=== PATIENT | female | born 1940 | race Caucasian/White ===

== ENCOUNTER 2020-09-20 14:21 | Outpatient (REF) | payer MEDICARE, OTHER, SELFPAY ==
[2020-09-20 15:35] LABS: Hematocrit 29.8 % (37-47); Hemoglobin 9.6 g/dl (12.0-16.0); Mean Corpuscular HGB Conc 32.2 g/dl (31.0-35.0); Mean Corpuscular Hemoglobin 30.5 pg (27.0-33.0); Mean Corpuscular Volume 94.6 fL (80-98); Mean Platelet Volume 10.4 fL (9.4-12.3); NRBC Pct Auto 0.8 /100WBC (0.0-0.2); Platelet Count 263 X10*3/uL (160-400); Red Blood Count 3.15 X10*6/uL (4.20-5.50); Red Cell Distribution Width 12.4 % (11.0-16.0)
[2020-09-20 15:41] LABS: Glucose Urine UA NEG (NEG); Leukocyte Esterase Urine NEG (NEG); Nitrite Urine NEG (NEG); Urine Blood TRACE (NEG); Urine Ketones NEG (NEG); Urine Protein NEG (NEG-TRACE)
[2020-09-20 15:48] LABS: Appearance Urine CLEAR; Color Urine YELLOW
[2020-09-20 15:58] LABS: Albumin Level 4.3 g/dL (3.5-5.0); Anion Gap 16 (12-20); Blood Urea Nitrogen 30 mg/dL (9-16); Calcium 9.5 mg/dL (8.4-10.2); Carbon Dioxide 25 mmol/L (22-29); Chloride 99 mmol/L (96-108); Estimated Glomerular Filt Rate 43; Iron 77 mcg/dL (30-160); Magnesium 1.6 mg/dL (1.6-2.6); Percent Iron Saturation 20 % (15-50); Phosphorus 3.8 mg/dL (2.7-4.5); Potassium 4.6 mmol/L (3.3-5.1); Sodium 135 mmol/L (135-145); Total Iron Binding Capacity 390 mcg/dL (228-428); Unsaturated Iron Binding 313 ug/dL
[2020-09-20 16:07] LABS: Total Protein Urine Random < 7 mg/dL (<12)
[2020-09-20 16:20] LABS: Ferritin 366 ng/mL (10-250); Vitamin D 25-OH Total 28.9 ng/mL (>30)
[2020-09-20 17:03] LABS: RBC Urine 0-2 /HPF (0); WBC Urine 0 /HPF (0-4)
[2020-09-21 13:13] LABS: Calcium (PTHI) 9.7 mg/dL (8.6-10.4); PTHI 50 pg/mL (14-64)
== END 2020-09-20 14:22 | disposition home or self-care (01) ==
LOC: HO.LAB 14:21
PROVIDERS: PCP Internal Medicine; Visit Provider Internal Medicine Nephrology
DX: I12.9 Hypertensive chronic kidney disease with stage 1 through stage 4 chronic kidney disease, or unspecified chronic kidney disease (principal); N18.31 Chronic kidney disease, stage 3a; Q61.3 Polycystic kidney, unspecified; E21.0 Primary hyperparathyroidism; D63.1 Anemia in chronic kidney disease
CPT/HCPCS: 36415; 80051; 81001; 82040; 82306; 82310; 82565; 82728; 83540; 83735; 83970; 84100; 84156; 84520; 85027; 87086

== ENCOUNTER 2021-03-21 16:03 | Outpatient (REF) | payer MEDICARE, OTHER, SELFPAY ==
[2021-03-21 17:06] LABS: Appearance Urine CLEAR; Color Urine YELLOW; Glucose Urine UA NEG (NEG); Leukocyte Esterase Urine NEG (NEG); Nitrite Urine NEG (NEG); PH 6.5 (5.0-8.0); Urine Blood TRACE (NEG); Urine Ketones NEG (NEG); Urine Protein NEG (NEG-TRACE)
[2021-03-21 17:19] LABS: RBC Urine 0-2 /HPF (0); Squamous Epithelial Cell Urine TRACE /LPF; WBC Urine 0-2 /HPF (0-4)
[2021-03-21 17:28] LABS: Hematocrit 25.8 % (37-47); Hemoglobin 8.5 g/dl (12.0-16.0); Mean Corpuscular HGB Conc 32.9 g/dl (31.0-35.0); Mean Corpuscular Volume 94.2 fL (80-98); Mean Platelet Volume 9.6 fL (9.4-12.3); Platelet Count 337 X10*3/uL (160-400); Red Blood Count 2.74 X10*6/uL (4.20-5.50); Red Cell Distribution Width 13.2 % (11.0-16.0); White Blood Count 4.7 X10*3/uL (4.8-10.8)
[2021-03-21 17:37] LABS: Creatinine Urine 29.18 mg/dL; Protein/Creatinine Ratio, Ur 0.41 (<0.2); Total Protein Urine Random 12 mg/dL (<12)
[2021-03-21 17:38] LABS: Anion Gap 11 (12-20); Blood Urea Nitrogen 24 mg/dL (9-16); Calcium 9.3 mg/dL (8.4-10.2); Carbon Dioxide 26 mmol/L (22-29); Chloride 105 mmol/L (96-108); Estimated Glomerular Filt Rate 43; Magnesium 1.6 mg/dL (1.6-2.6); Phosphorus 3.5 mg/dL (2.7-4.5); Potassium 4.3 mmol/L (3.3-5.1); Sodium 138 mmol/L (135-145)
[2021-03-21 17:59] LABS: Vitamin D 25-OH Total 28.3 ng/mL (>30)
[2021-03-22 18:26] LABS: Calcium (PTHI) 9.4 mg/dL (8.6-10.4); PTHI 77 pg/mL (14-64)
== END 2021-03-21 16:04 | disposition home or self-care (01) ==
LOC: HO.LAB 16:03
PROVIDERS: Visit Provider Internal Medicine Nephrology
DX: Q61.3 Polycystic kidney, unspecified (principal); I12.9 Hypertensive chronic kidney disease with stage 1 through stage 4 chronic kidney disease, or unspecified chronic kidney disease; N18.32 Chronic kidney disease, stage 3b; E21.0 Primary hyperparathyroidism
CPT/HCPCS: 36415; 80051; 81001; 81003; 82040; 82043; 82306; 82310; 82565; 83735; 83970; 84100; 84156; 84520; 85027; 87086

== ENCOUNTER 2021-03-30 12:14 | Emergency (ER) | payer MEDICARE, OTHER, SELFPAY ==
[2021-03-30 12:27] VITALS: BP 102/58; PULSE 70; RESP 16; TEMP 36.7; O2SAT 99; BMI 29.2
--- NOTE | 2021-03-30 12:46 | ED_ITS ---
HPI - General Adult General Chief complaint: General Medical Stated complaint: AMS Time Seen by Provider: 03/30/21 12:35 Source: patient and RN notes reviewed Limitations: other (Dementia) History of Present Illness HPI narrative: This is a 80-year-old female who apparently has had a worsened mental status/progression of dementia. The patient allegedly called an ambulance looking for her grandmother. The the patient states that her son called an ambulance on her and that she is very angry about this. She said she feels perfectly fine. She denies any headache, chest pain, shortness of breath, abdominal pain, nausea vomiting, extremity pain. She does live at home with her . She states that after this her son is going to need to look for any place to live The patient's son later arrived and filled in some history. Patient apparently called the ambulance saying that her son was missing. The son says that the patient has become increasingly coronary and that her moved out about 3 months ago because he could not tolerate her behavior. Patient is increasingly forgetful. She is also very hard of hearing and, according to her son, stubborn. The patient states she does have history of anemia, and the patient's son said that the primary care physician he believes have referred her to a kidney specialist. Related Data Allergies Allergy/AdvReac Type Severity Reaction Status Date / Time No Known Allergies Allergy Unverified 03/18/20 15:04 [No Known Allergies*] Review of Systems Review of Systems: Yes all other systems are reviewed and are negative Constitutional: Constitutional: Denies fever(s) Eyes: Eyes: Reports no additional eye complaints ENT: Reports system reviewed and no additional complaints, except as do cumented Cardiovascular: Cardiovascular: Reports no additional cardiovascular complaints Respiratory: Respiratory: Reports no additional respiratory complaints Gastrointestinal: Gastrointestinal: Reports no additional gastrointestinal com plaints Genitourinary: Genitourinary: Reports no additional female genitourinary complaints Musculoskeletal: Musculoskeletal: Reports no additional musculoskeletal complaints Integumentary/Breasts: Skin/Breast: Reports system reviewed and no additional complaints, except as docu Neurologic: Reports system reviewed and no additional complaints, except as documented and Denies Sensory deficit (Neuro) Psychiatric: Psychiatric: Reports no additional psychiatric complaints PMFSH Social History Social History Alcohol intake: never Patient Tobacco Use Status: Never used Tobacco Use of substances other than those prescribed or required for medical reasons: No Advance Directives: No Advance Directives Information Provided: No Physical Exam Vital Signs: Vital Signs: Last Vital Signs Temp 98.0 F 03/30/21 12:27 Pulse 70 03/30/21 12:27 Resp 16 03/30/21 12:27 BP 102/58 L 03/30/21 12:27 Pulse Ox 99 03/30/21 12:27 Body Mass Index 29.2 Const: Other: Patient not ill appearing, somewhat hard of hearing, but communicates appropriately. Patient is oriented to the month, the year, is 1 day off in terms of the day of the week.. Speech clear. Patient seems somewhat angry that she was brought here, is grateful for warm blanket General: coopera tive, no acute distress and alert Orientation/consciousness: oriented to person, oriented to place, oriented to time and patient oriented x3 (States that is Sunday ) HENMT: Head: Yes normal to inspection Eyes: General: appearance normal, both eyes and all related structures Eyelids: Yes eyelids normal Conjunctivae: conjunctivae normal Pupils: Equal, round and reactive pupils present Neck: Neck: Yes normal visual inspection and Yes supple Chest: Chest palpation & inspection: normal inspection of the chest Resp: Effort & Inspection: normal respiratory effort Auscultation: clear to auscultation bilaterally Cardio: Rate: regular rate Rhythm: regular rhythm Heart sounds: S1 normal heart sound present, S2 normal heart sound present, no gallops, no murmurs and no rubs GI: Palpation (GI): Soft to palpation, nontender and Other GI palpation findings present (Non-distended) Auscultation: normal bowel sounds Skin: General skin exam: no rashes or lesions noted Neuro: General: oriented to person, oriented to place, oriented to time, patient oriented x3 (States that is Sunday ), no focal motor deficits and CN's II-XI intact bilaterally Cranial nerves: Yes Equal, round and reactive pupils present Cognition (Neuro): normal cognition Motor exam (neuro): 5/5 motor strength present throughout Sensory Exam: No Sensory deficit (Neuro) Extrem: General: Yes normal to inspection and Yes no pedal edema Psych: Appearance: grossly normal Affect: normal affect Medical Decision Making MDM Narrative Medical decision making narrative: Patient brought in by ambulance after the patient had apparently called stating that her son was missing. The patient's has left her due to her being difficult to be around. The patient's son does check on her regularly and does not feel she is unsafe per se. The patient is hard of hearing and difficult to interact with for that reason. She is also forgetful and this also increases frustration. The patient was up and around, was pale but otherwise vivacious, insisting upon going home, complaining vociferously. Patient does have hemoglobin has been trending down. She also has renal insufficiency, which has been at the same level previously. The patient's stool was checked and was heme negative, nonmelanotic. Son reported that the patient has not been feeling quite herself recently and this may in part be due to her anemia. The patient however refused to stay or to consider blood transfusion today. She is advised that she needs to have 1 arranged as an outpatient. She may also need further dementia workup and possible geriatric psychiatry workup as an outpatient. She would also benefit from hearing aids, however her son stated that she has refused these. Lab Data Lab results reviewed: Yes I reviewed the patient's lab results. Result diagrams: 03/30/21 13:25 03/30/21 13:25 Labs: Lab Results 03/30/21 03/30/21 03/30/21 Range/Units 13:25 13:25 15:01 WBC 3.9 L (4.8-10.8) X10*3/uL RBC 2.49 L (4.20-5.50) X10*6/uL Hgb 7.6 L (12.0-16.0) g/dl Hct 22.9 L (37-47) % MCV 92.0 (80-98) fL MCH 30.5 (27.0-33.0) pg MCHC 33.2 (31.0-35.0) g/dl RDW 13.3 (11.0-16.0) % Plt Count 303 (160-400) X10*3/uL MPV 9.1 L (9.4-12.3) fL Immature Gran % (Auto) 0.3 (0.0-0.4) % Neut % (Auto) 74.8 H (45-73) % Lymph % (Auto) 13.6 L (20-40) % [place] % (Auto) 10.5 (2-11) % Eos % (Auto) 0.5 (0-4) % Baso % (Auto) 0.3 (0-2) % Lymph # (Auto) 0.5 L (1.2-4.9) X10*3/uL [place] # (Auto) 0.4 (0.1-1.2) X10*3/uL Eos # (Auto) 0.0 (0.0-0.4) X10*3/uL Baso # (Auto) 0.0 (0.0-0.2) X10*3/uL Abs Immat Gran (auto) 0.01 (0.00-0.03) X10*3/uL Absolute Neuts (auto) 2.9 (2.0-8.3) X10*3/uL Absolute Nucleated RBC 0.000 (0.0-0.012) X10*3/uL Nucleated RBC % (auto) 0.0 (0.0-0.2) /100WBC Sodium 133 L (135-145) mmol/L Potassium 4.2 (3.3-5.1) mmol/L Chloride 102 (96-108) mmol/L Carbon Dioxide 22 (22-29) mmol/L Anion Gap 13 (12-20) BUN 24 H (9-16) mg/dL Creatinine 1.42 H (0.5-1.4) mg/dL Estim Creat Clear Calc 27.6 Estimated GFR 36 Random Glucose 102 (60-115) mg/dL Calcium 7.9 L D (8.4-10.2) mg/dL Total Bilirubin 0.4 (0.0-1.0) mg/dL AST 51 H (5-31) U/L ALT 24 (0-31) U/L Alkaline Phosphatase 32 L (39-117) U/L Total Protein 5.4 L (6.5-8.0) g/dL Albumin 3.4 L (3.5-5.0) g/dL Urine Color YELLOW Urine Appearance CLEAR Urine pH 5.5 (5.0-8.0) Ur Specific Christmas <= 1.005 (1.005-1.025) Urine Protein NEG (NEG-TRACE) MG/DL Urine Glucose (UA) NEG (NEG) MG/DL Urine Ketones NEG (NEG) MG/DL Urine Blood NEG (NEG) Urine Nitrite NEG (NEG) Ur Leukocyte Esterase NEG (NEG) Stool Occult Blood (NEGATIVE) 03/30/21 Range/Units 15:01 WBC (4.8-10.8) X10*3/uL RBC (4.20-5.50) X10*6/uL Hgb (12.0-16.0) g/dl Hct (37-47) % MCV (80-98) fL MCH (27.0-33.0) pg MCHC (31.0-35.0) g/dl RDW (11.0-16.0) % Plt Count (160-400) X10*3/uL MPV (9.4-12.3) fL Immature Gran % (Auto) (0.0-0.4) % Neut % (Auto) (45-73) % Lymph % (Auto) (20-40) % [place] % (Auto) (2-11) % Eos % (Auto) (0-4) % Baso % (Auto) (0-2) % Lymph # (Auto) (1.2-4.9) X10*3/uL [place] # (Auto) (0.1-1.2) X10*3/uL Eos # (Auto) (0.0-0.4) X10*3/uL Baso # (Auto) (0.0-0.2) X10*3/uL Abs Immat Gran (auto) (0.00-0.03) X10*3/uL Absolute Neuts (auto) (2.0-8.3) X10*3/uL Absolute Nucleated RBC (0.0-0.012) X10*3/uL Nucleated RBC % (auto) (0.0-0.2) /100WBC Sodium (135-145) mmol/L Potassium (3.3-5.1) mmol/L Chloride (96-108) mmol/L Carbon Dioxide (22-29) mmol/L Anion Gap (12-20) BUN (9-16) mg/dL Creatinine (0.5-1.4) mg/dL Estim Creat Clear Calc Estimated GFR Random Glucose (60-115) mg/dL Calcium (8.4-10.2) mg/dL Total Bilirubin (0.0-1.0) mg/dL AST (5-31) U/L ALT (0-31) U/L Alkaline Phosphatase (39-117) U/L Total Protein (6.5-8.0) g/dL Albumin (3.5-5.0) g/dL Urine Color Urine Appearance Urine pH (5.0-8.0) Ur Specific Christmas (1.005-1.025) Urine Protein (NEG-TRACE) MG/DL Urine Glucose (UA) (NEG) MG/DL Urine Ketones (NEG) MG/DL Urine Blood (NEG) Urine Nitrite (NEG) Ur Leukocyte Esterase (NEG) Stool Occult Blood NEGATIVE (NEGATIVE) Discharge Plan Discharge Clinical Impression: Anemia, Dementia, Hard of hearing Patient Disposition: Home, Self-Care Instructions: Hearing Loss (ED), Dementia (ED), Anemia (ED) Additional Instructions: Call your primary care physician tomorrow. Your blood count is getting lower and lower and you may soon need a blood transfusion. Her primary care physician also should refer you to get hearing aids, and he do further evaluation regarding your forgetfulness Referrals: Erica Yancey MD [Primary Care Provider] - 2 days Interventions: ED Discharge Assessment Last Done: 03/30/21 16:25 Discharge Date/Time: 03/30/21 16:25
[2021-03-30 13:29] LABS: MANUAL DIFF FLAG NO
[2021-03-30 13:31] LABS: Basophils Percent Auto 0.3 % (0-2); Eosinophils Percent Auto 0.5 % (0-4); Hematocrit 22.9 % (37-47); Hemoglobin 7.6 g/dl (12.0-16.0); Imm Gran Abs Auto 0.01 X10*3/uL (0.00-0.03); Imm Gran Pct Auto 0.3 % (0.0-0.4); Lymphocytes Absolute Auto 0.5 X10*3/uL (1.2-4.9); Lymphocytes Percent Auto 13.6 % (20-40); Mean Corpuscular HGB Conc 33.2 g/dl (31.0-35.0); Mean Corpuscular Hemoglobin 30.5 pg (27.0-33.0); Mean Platelet Volume 9.1 fL (9.4-12.3); Monocytes Absolute Auto 0.4 X10*3/uL (0.1-1.2); Monocytes Percent Auto 10.5 % (2-11); Neutrophils Absolute Auto 2.9 X10*3/uL (2.0-8.3); Neutrophils Percent Auto 74.8 % (45-73); Platelet Count 303 X10*3/uL (160-400); Red Blood Count 2.49 X10*6/uL (4.20-5.50); Red Cell Distribution Width 13.3 % (11.0-16.0); White Blood Count 3.9 X10*3/uL (4.8-10.8)
[2021-03-30 13:56] LABS: Alanine Aminotransferase 24 U/L (0-31); Albumin Level 3.4 g/dL (3.5-5.0); Alkaline Phosphatase 32 U/L (39-117); Anion Gap 13 (12-20); Aspartate Amino Transferase 51 U/L (5-31); Bilirubin Total 0.4 mg/dL (0.0-1.0); Blood Urea Nitrogen 24 mg/dL (9-16); Calcium 7.9 mg/dL (8.4-10.2); Carbon Dioxide 22 mmol/L (22-29); Chloride 102 mmol/L (96-108); Creatinine Clr Calc Pharmacy 27.6; Estimated Glomerular Filt Rate 36; Glucose Random 102 mg/dL (60-115); Potassium 4.2 mmol/L (3.3-5.1); Sodium 133 mmol/L (135-145); Total Protein 5.4 g/dL (6.5-8.0)
[2021-03-30 15:10] LABS: Appearance Urine CLEAR; Color Urine YELLOW; Glucose Urine UA NEG (NEG); Leukocyte Esterase Urine NEG (NEG); Nitrite Urine NEG (NEG); PH 5.5 (5.0-8.0); Specific Gravity - Urine <= 1.005 (1.005-1.025); Urine Blood NEG (NEG); Urine Ketones NEG (NEG); Urine Protein NEG (NEG-TRACE)
[2021-03-30 15:11] LABS: OBS Int Ctl Valid YES; OBS1 NEGATIVE (NEGATIVE)
--- NOTE | 2021-03-30 16:16 | MHC.CM.ED ---
Received case management consult from Dr Andre. Patient caem to the ER due to AMS. Patient found to be anemic. Met with patient and son Jerald in regards to discharge planning. Patient alives alone. Per Jerald, moved out of the home a couple of months. Patient states her is in and out of the home. Patient uses a cane for mobility. PCP verified. Patient received 2 Covid vaccines but doesn't remember which one. Patient is extremely hard of hearing. Patient declining services at home. Patient feels she can safely return home. Jerald feels patient can safely return home. Jerald will transport patient home. Patient, Sonja Marques RN and Dr Andre aware. Continue to monitor for d/c needs.
== END 2021-03-30 16:25 | disposition home or self-care (01) ==
PROVIDERS: Emergency Provider Emergency Medicine; PCP Internal Medicine
DX: F03.90 Unspecified dementia, unspecified severity, without behavioral disturbance, psychotic disturbance, mood disturbance, and anxiety (principal); D64.9 Anemia, unspecified; H91.93 Unspecified hearing loss, bilateral; R30.0 Dysuria; Z79.899 Other long term (current) drug therapy
CPT/HCPCS: 36415; 80053; 81003; 82272; 85025; 99284

== ENCOUNTER 2021-08-18 13:26 | Inpatient (IN) | payer MEDICARE, OTHER, SELFPAY ==
--- NOTE | ~2021-08-18 | CT_ITS ---
EXAMINATION: CT ANGIOGRAM OF THE CHEST WITH AND WITHOUT CONTRAST (CT PULMONARY ANGIOGRAM FOR PE) CLINICAL INFORMATION: Reason for Exam AMS, sob? COMPARISON: None TECHNIQUE: Prior to contrast administration, noncontrast localization images were obtained. Subsequently, multidetector volumetric imaging was performed from the thoracic inlet to below the diaphragms following the administration of 80 mL Omnipaque 350 intravenous contrast. No contrast reaction reported Sagittal, coronal, and MIP oblique sagittal reformatted images were obtained on the CT workstation, uploaded to PACS, and reviewed. This CT examination was performed using dose optimization techniques as appropriate, variously including the following: *Automated exposure control *Adjustment of mA and/or kV according to patient size (this includes techniques or standardized protocols for targeted exams where dose is matched to indication/reason for exam; i.e. extremities or head) *Use of iterative reconstruction technique Total exam dose-length product 910 mGy-cm FINDINGS: QUALITY OF STUDY/CONTRAST BOLUS: Satisfactory. PULMONARY ARTERIES: No central or segmental pulmonary emboli. THORACIC AORTA: No aneurysm or dissection. Mild calcific atherosclerosis. LUNG: Mild dependent atelectasis. Central airways are clear. No consolidation, pneumothorax, or pleural effusion. No focal pulmonary nodules are identified. No appreciable interstitial abnormality. PLEURA: No pleural effusion or pneumothorax. MEDIASTINUM: Normal heart size. No pericardial effusion. Calcifications are present of the coronary arteries. No hilar or mediastinal lymphadenopathy. No evidence of septal bowing or right heart strain. Thyroid gland is unremarkable. CHEST WALL/AXILLA: No axillary or internal mammary lymphadenopathy. OSSEOUS STRUCTURES: No acute or suspicious osseous abnormality. UPPER ABDOMEN: There is a large fluid density cyst in the posterior aspect right upper lobe measuring 6.2 cm in diameter. Numerous additional fluid density cysts are present in the liver, incompletely assessed in the absence of portal venous phase images. Numerous cysts are also evident throughout both kidneys, potentially due to underlying polycystic kidney disease. The cyst of fluid density. No imaging follow-up is recommended at this time. No reflux of contrast into the hepatic veins to suggest elevated right heart pressures. CT/CT angio chest PE protocol IMPRESSION: No evidence of pulmonary emboli. No acute findings in the chest. Mild dependent atelectasis. VTE: negative
--- NOTE | ~2021-08-18 | CT_ITS ---
EXAMINATION: CT HEAD WITHOUT CONTRAST CLINICAL INFORMATION: Confusion. Altered mental status. COMPARISON: None TECHNIQUE: Contiguous axial imaging was performed from the skull base to vertex without intravenous administration of contrast. This CT examination was performed using dose optimization techniques as appropriate, variously including the following: *Automated exposure control *Adjustment of mA and/or kV according to patient size (this includes techniques or standardized protocols for targeted exams where dose is matched to indication/reason for exam; i.e. extremities or head) *Use of iterative reconstruction technique DLP: 910 mGy-cm FINDINGS: There is no evidence of acute intracranial hemorrhage or territorial infarction. No abnormal mass effect or midline shift is seen. Gannon to white matter differentiation is well preserved. No extra-axial fluid collections are identified. Minimal enlargement of the ventricles, sulci, and extra-axial CSF spaces is indicative of parenchymal volume loss. A few subtle foci of hypoattenuation in the subcortical and periventricular white matter are most consistent with chronic microangiopathic changes. Calcific atherosclerosis is present within the cavernous segments of the internal carotid arteries. The osseous structures and soft tissues are normal. The mastoid air cells and visualized portions of the paranasal sinuses are well aerated. CT/CT head/brain wo con IMPRESSION: No acute intracranial pathology.
--- NOTE | ~2021-08-18 | XR_ITS ---
EXAMINATION: XR CHEST CLINICAL INFORMATION: Altered mental status. COMPARISON: No similar priors. TECHNIQUE: 2 views of the chest were obtained. FINDINGS: Cardiomegaly. No focal airspace opacities, pleural effusions or pneumothorax. No acute osseous abnormalities. EKG wires overlie the patient. XR/XR chest 2V IMPRESSION: Cardiomegaly. Clear lungs.
[2021-08-18 13:49] VITALS: BP 84/50; PULSE 57; RESP 18; TEMP 36.8; O2SAT 98; BMI 23.8
[2021-08-18 14:02] VITALS: BP 89/50
[2021-08-18 14:16] VITALS: BP 93/54
--- NOTE | 2021-08-18 14:16 | PC.NURSE ---
patient refusing to have IV placed upon arrival to ED, bp low, waiting to be seen by provider.
--- NOTE | 2021-08-18 15:11 | ECG_ITS ---
Test Reason : ams Blood Pressure : / mmHG Vent. Rate : 076 BPM Atrial Rate : 076 BPM P-R Int : 156 ms QRS Dur : 106 ms QT Int : 422 ms P-R-T Axes : 061 -28 216 degrees QTc Int : 474 ms Normal sinus rhythm Possible Left atrial enlargement Incomplete right bundle branch block ST & T wave abnormality, consider anterolateral ischemia Prolonged QT Abnormal ECG No previous ECGs available Referred By: Melissa Garvey Electronically Signed By:NGOZI JENKINS MD
--- NOTE | 2021-08-18 15:11 | ED.GENADULT ---
HPI - General Adult General Chief complaint: Altered Mental Status Stated complaint: CONFUSION FOR WEEKS PER EMS Time Seen by Provider: 08/18/21 15:11 Source: patient, family (Son Jerald) and EMS Mode of arrival: EMS Limitations: altered mental status History of Present Illness HPI narrative: This 80-year-old female brought in by ambulance into the emergency department past medical history significant for anemia,hypertension, anxiety presenting with altered mental status. According to EMS patient called 911 saying she stepped outside in the garden. However, when EMS arrived she was in her home. Patient tells me that she called 911 because she felt confused, weak and she was not feeling well. At this time she is very agitated, aggressive, screaming, refusing labs, vitals, does not want to speak to me to obtain a history. She tells me she wants to leave and she does not understand why she is here. Multiple times upon my history taking patient mentions that her and her son are in the room next door which is not true. Son is in the hallway. Sent tells me he is very worried about her mother she has been incontinent of stool, altered and not acting herself for the past week. She denies any medical complaints at this time however, she is very anxious and agitated to get out of here. She tells me she will kick, scream and do whatever it takes for her to leave. Patient is noted to have stool dripping down her legs, she starts talking about random things in the middle of our conversation. Sent tells me he has noticed this as well. He tells me he lives at his mother's home, and a separate unit. He tells me that he has been staying in his mother's home a few times over the past week since his mother has been confused, weak and not feeling good. He also tells me that she has been making decisions that seem to not make sense. She is not eating well, drinking or taking care of herself. Onset (ago): week(s) (1) Relieving factors: none Exacerbating factors: none Treatments prior to arrival: none Related Data Home Medications Medication Instructions Recorded Confirmed amlodipine 5 mg tablet 1 tab PO BID 08/18/21 08/18/21 calcium carbonate 600 mg calcium 600 mg PO DAILY 08/18/21 08/18/21 (1,500 mg) tablet cholecalciferol (vitamin D3) 50 50 mcg PO DAILY 08/18/21 08/18/21 mcg (2,000 unit) tablet cinacalcet 60 mg tablet 1 tab PO DAILY 08/18/21 08/18/21 clonidine HCl 0.1 mg tablet 0.2 mg PO BID 08/18/21 08/18/21 fenofibrate nanocrystallized 145 1 tab PO DAILY 08/18/21 08/18/21 mg tablet irbesartan 300 mg tablet 1 tab PO DAILY 08/18/21 08/18/21 omeprazole 20 mg capsule,delayed 20 mg PO DAILY 08/18/21 08/18/21 release tizanidine 4 mg tablet 4 mg PO Q6H PRN 08/18/21 08/18/21 Allergies Allergy/AdvReac Type Severity Reaction Status Date / Time No Known Allergies Allergy Unverified 03/18/20 15:04 [No Known Allergies*] Review of Systems Review of Systems: Yes Unobtainable due to mental status PMFSH Past Medical History Attestation statement: The following information was validated with the patient. Source: old records reviewed and nursing notes reviewed Social History Social History Alcohol intake: never Patient Tobacco Use Status: Never used Tobacco Use of substances other than those prescribed or required for medical reasons: No Advance Directives: No Advance Directives Information Provided: Yes Physical Exam ED Vital Signs: Vital Signs - 24 hr 08/18/21 13:49 08/18/21 14:02 08/18/21 14:16 Temperature 98.2 F Pulse Rate 57 Respiratory Rate 18 Blood Pressure 84/50 L 89/50 L 93/54 L Pulse Oximetry 98 08/18/21 18:30 08/18/21 21:24 Temperature Pulse Rate 70 61 Respiratory Rate 16 14 Blood Pressure 121/61 103/52 L Pulse Oximetry 97 99 BMI result Body Mass Index 23.8 Patient is noted to be hypotensive, it appears as though her blood pressure is always low according to son. Appearance: Alert.? Oriented X3.? No acute distress.? Head: Normocephalic, atraumatic, no step-offs or deformities Eyes: Pupils equal, round and reactive to light.? ENT: Pharynx normal.? Neck: Normal inspection.? Neck supple.? CVS: Normal heart rate and rhythm.? Pulses normal.? Respiratory: No respiratory distress.? Breath sounds normal.? Abdomen: Soft and nontender.? Skin: Skin warm and dry.? Normal skin color.? Normal skin turgor.? Extremities: No lower extremity edema.? No calf ttp. 5/5 strength to bilateral upper and lower extremities Back: No midline tenderness, no C-spine tenderness, full range of motion, no CVA tenderness bilaterally Neuro: Oriented X 3.? No motor deficit.? No sensory deficit. Randomly during conversation patient starts talking about things that do not make sense such as her ex- and son. Course Reevaluation(s) Reevaluation #1: Patient's CBC appears to be at baseline. No acute electrolyte abnormalities. Patient's troponin is noted to be elevated, a 2nd troponin will be drawn 3 hours after the initial. EKG pending as patient not allowing us to get one at this time however patient will be given 325 of enteric-coated aspirin. Will continue to monitor patient. She is doing well after Haldol and Ativan. She is on a quality assurance monitor with a regular sinus rhythm. Vital signs are stable. Time: 17:41 Reevaluation #2: There was a delay in obtaining the EKG as patient was initially refusing. Inverted T-waves noted in the anterior leads, concerning for possible ischemia. Patient was given enteric-coated aspirin. Will wait for 2nd troponin. Patient was hypotensive 2 L of fluids were given with improvement. Time: 18:28 Reevaluation #3: Trip is not meeting criteria for acute coronary syndrome, did not double delta. Time: 19:53 Additional Reevaluation(s): 1999 CT head and brain within normal limits. CTA negative for VTE, mild atelectasis. Due to patients acute mental status changes will speak to hospitalist for admission as patient may require further imaging to explain acute ams. Soke to cardiology no need for heparin at this time elevated trop likley secondary to ckd Medical Decision Making MDM Narrative Medical decision making narrative: 1500 80 yo f pmhx anemia, HTN, anxiety presents with acute ams X1 week worsening. Son jerald here who is concerned about mother, she is not caring for herself, she is confused, altered and not making sense sometimes. She has periods of lucency according to son. Upon my exam patient is refusing to answer questions she tells me she wants to leave she is agitated angry, kicking the side rails. She continuously is asking for her clothes, sneakers and purse which she does not have here with her. She appears to be confused from time to time however she is alert and oriented x4 to person, place time and situation. Physical examination significant for an unkempt 80-year-old female ambulating with an unsteady gait. She has stool all over her body, mostly on her lower extremitites. She is anxious and agitated. Confused from time to time. Refusing to follow comands, she states she is fine and wants to leave. PEERLA. Lungs clear. RRR. Abdomen soft non tener non distended Spoke to patient's son who tells me he is his mother's primary envelope stamping machine operator he tells me he is very worried as these changes in mentation have come on acutely over the past week. She reported last week she was not feeling well, she thought it was maybe a cold. However, she has appeared more confused than usual he tells me he thinks she has dementia however no diagnosis. She is forgetting things, not taking care of herself, not doing activities of daily living. She is ambulating with an unsteady gait which poses a risk to patient's safety. Due the nature of these symptoms and their acuity I feel as though patient is not safe to leave even though she is requesting to leave. Medical delirium needs to be ruled out, Haldol and Ativan will be given as patient is very agitated, roaming the halls, screaming in very anxious. I do not believe patient is incapacitated to make decisions as she appears confused and she repeatedly is telling me that she has stepped outside in the garden when she was never outside or in the garden. I informed sun of my plan, he agrees any tells me he is truly worried about his mom. I discussed this case with my attending Dr. Swanson who agrees with plan. Also spoke to Case Management who will look into this case after patient is medically cleared. Plan at this time is to obtain basic labs, EKG, urine. Will rule out UTI I will also obtain a CT of the head and brain to rule out intracranial pathologies. Patient will likely require a psych consult. Medical Records Medical records reviewed: Yes I reviewed the patient's medical records. Lab Data Lab results reviewed: Yes I reviewed the patient's lab results. Result diagrams: 08/18/21 15:46 08/18/21 15:46 Labs: Lab Results 08/18/21 08/18/21 08/18/21 Range/Units 15:46 15:46 15:46 WBC 6.1 (4.8-10.8) X10*3/uL RBC 3.30 L (4.20-5.50) X10*6/uL Hgb 9.5 L (12.0-16.0) g/dl Hct 28.0 L (37.0-47.0) % MCV 84.8 (80.0-98.0) fL MCH 28.8 (27.0-33.0) pg MCHC 33.9 (31.0-35.0) g/dl RDW 13.2 (11.0-16.0) % Plt Count 353 (160-400) X10*3/uL MPV 10.1 (9.4-12.3) fL Immature Gran % (Auto) 0.7 H (0.0-0.4) % Neut % (Auto) 81.8 H (45-73) % Lymph % (Auto) 11.2 L (20-40) % [place] % (Auto) 5.8 (2-11) % Eos % (Auto) 0.3 (0-4) % Baso % (Auto) 0.2 (0-2) % Lymph # (Auto) 0.7 L (1.2-4.9) X10*3/uL [place] # (Auto) 0.4 (0.1-1.2) X10*3/uL Eos # (Auto) 0.0 (0.0-0.4) X10*3/uL Baso # (Auto) 0.0 (0.0-0.2) X10*3/uL Abs Immat Gran (auto) 0.04 H (0.00-0.03) X10*3/uL Absolute Neuts (auto) 5.0 (2.0-8.3) x10*3/uL Absolute Nucleated RBC 0.000 (0.0-0.012) X10*3/uL Nucleated RBC % (auto) 0.0 (0.0-0.2) /100WBC Sodium 130 L (135-145) mmol/L Potassium 3.2 L D (3.3-5.1) mmol/L Chloride 98 (96-108) mmol/L Carbon Dioxide 23 (22-29) mmol/L Anion Gap 12 (12-20) BUN 41 H (9-16) mg/dL Creatinine 1.42 H (0.5-1.4) mg/dL Estim Creat Clear Calc 24.2 Estimated GFR 36 Random Glucose 109 (60-115) mg/dL Calcium 9.4 D (8.4-10.2) mg/dL Magnesium 1.6 (1.6-2.6) mg/dL Total Bilirubin 0.9 (0.0-1.0) mg/dL AST 65 H (5-31) U/L ALT 43 H (0-31) U/L Alkaline Phosphatase 28 L (39-117) U/L Ammonia 16 (13-55) umol/L Total Creatine Kinase 83 (26-140) U/L Troponin I High Sens (<3.5-17.0) ng/L C-Reactive Protein 1.31 H (< or = 0.50) mg/dL B-Natriuretic Peptide (<100) pg/mL Total Protein 5.5 L (6.5-8.0) g/dL Albumin 3.3 L (3.5-5.0) g/dL TSH 1.41 (0.32-4.0) uIU/mL Urine Color Urine Appearance Urine pH (5.0-8.0) Ur Specific [place] (1.005-1.025) Urine Protein (NEG-TRACE) MG/DL Urine Glucose (UA) (NEG) MG/DL Urine Ketones (NEG) MG/DL Urine Blood (NEG) Urine Nitrite (NEG) Ur Leukocyte Esterase (NEG) Urine RBC (0) /HPF Urine WBC (0-4) /HPF Ur Squamous Epith Cells /LPF Urine Bacteria /LPF Urine Opiates Screen (Not Detect) Urine Fentanyl Screen (Not Detect) Ur Barbiturates Screen (Not Detect) Ur Phencyclidine Scrn (Not Detect) Ur Amphetamines Screen (Not Detect) U Benzodiazepines Scrn (Not Detect) Urine Cocaine Screen (Not Detect) U Marijuana (THC) Screen (Not Detect) COVID-19 (JACQUELINE) (Negative) COVID-19 Clin Com 08/18/21 08/18/21 08/18/21 Range/Units 15:46 15:57 15:57 WBC (4.8-10.8) X10*3/uL RBC (4.20-5.50) X10*6/uL Hgb (12.0-16.0) g/dl Hct (37.0-47.0) % MCV (80.0-98.0) fL MCH (27.0-33.0) pg MCHC (31.0-35.0) g/dl RDW (11.0-16.0) % Plt Count (160-400) X10*3/uL MPV (9.4-12.3) fL Immature Gran % (Auto) (0.0-0.4) % Neut % (Auto) (45-73) % Lymph % (Auto) (20-40) % [place] % (Auto) (2-11) % Eos % (Auto) (0-4) % Baso % (Auto) (0-2) % Lymph # (Auto) (1.2-4.9) X10*3/uL [place] # (Auto) (0.1-1.2) X10*3/uL Eos # (Auto) (0.0-0.4) X10*3/uL Baso # (Auto) (0.0-0.2) X10*3/uL Abs Immat Gran (auto) (0.00-0.03) X10*3/uL Absolute Neuts (auto) (2.0-8.3) x10*3/uL Absolute Nucleated RBC (0.0-0.012) X10*3/uL Nucleated RBC % (auto) (0.0-0.2) /100WBC Sodium (135-145) mmol/L Potassium (3.3-5.1) mmol/L Chloride (96-108) mmol/L Carbon Dioxide (22-29) mmol/L Anion Gap (12-20) BUN (9-16) mg/dL Creatinine (0.5-1.4) mg/dL Estim Creat Clear Calc Estimated GFR Random Glucose (60-115) mg/dL Calcium (8.4-10.2) mg/dL Magnesium (1.6-2.6) mg/dL Total Bilirubin (0.0-1.0) mg/dL AST (5-31) U/L ALT (0-31) U/L Alkaline Phosphatase (39-117) U/L Ammonia (13-55) umol/L Total Creatine Kinase (26-140) U/L Troponin I High Sens 321.4 H* (<3.5-17.0) ng/L C-Reactive Protein (< or = 0.50) mg/dL B-Natriuretic Peptide (<100) pg/mL Total Protein (6.5-8.0) g/dL Albumin (3.5-5.0) g/dL TSH (0.32-4.0) uIU/mL Urine Color YELLOW Urine Appearance CLEAR Urine pH 6.0 (5.0-8.0) Ur Specific [place] <= 1.005 (1.005-1.025) Urine Protein NEG (NEG-TRACE) MG/DL Urine Glucose (UA) NEG (NEG) MG/DL Urine Ketones NEG (NEG) MG/DL Urine Blood NEG (NEG) Urine Nitrite NEG (NEG) Ur Leukocyte Esterase TRACE H (NEG) Urine RBC 0 (0) /HPF Urine WBC 1-4 (0-4) /HPF Ur Squamous Epith Cells 2+ /LPF Urine Bacteria 1+ /LPF Urine Opiates Screen Not Detected (Not Detect) Urine Fentanyl Screen Not Detected (Not Detect) Ur Barbiturates Screen Not Detected (Not Detect) Ur Phencyclidine Scrn Not Detected (Not Detect) Ur Amphetamines Screen Not Detected (Not Detect) U Benzodiazepines Scrn Not Detected (Not Detect) Urine Cocaine Screen Not Detected (Not Detect) U Marijuana (THC) Screen Not Detected (Not Detect) COVID-19 (JACQUELINE) (Negative) COVID-19 Clin Com 08/18/21 08/18/21 08/18/21 Range/Units 15:59 19:14 20:15 WBC (4.8-10.8) X10*3/uL RBC (4.20-5.50) X10*6/uL Hgb (12.0-16.0) g/dl Hct (37.0-47.0) % MCV (80.0-98.0) fL MCH (27.0-33.0) pg MCHC (31.0-35.0) g/dl RDW (11.0-16.0) % Plt Count (160-400) X10*3/uL MPV (9.4-12.3) fL Immature Gran % (Auto) (0.0-0.4) % Neut % (Auto) (45-73) % Lymph % (Auto) (20-40) % [place] % (Auto) (2-11) % Eos % (Auto) (0-4) % Baso % (Auto) (0-2) % Lymph # (Auto) (1.2-4.9) X10*3/uL [place] # (Auto) (0.1-1.2) X10*3/uL Eos # (Auto) (0.0-0.4) X10*3/uL Baso # (Auto) (0.0-0.2) X10*3/uL Abs Immat Gran (auto) (0.00-0.03) X10*3/uL Absolute Neuts (auto) (2.0-8.3) x10*3/uL Absolute Nucleated RBC (0.0-0.012) X10*3/uL Nucleated RBC % (auto) (0.0-0.2) /100WBC Sodium (135-145) mmol/L Potassium (3.3-5.1) mmol/L Chloride (96-108) mmol/L Carbon Dioxide (22-29) mmol/L Anion Gap (12-20) BUN (9-16) mg/dL Creatinine (0.5-1.4) mg/dL Estim Creat Clear Calc Estimated GFR Random Glucose (60-115) mg/dL Calcium (8.4-10.2) mg/dL Magnesium (1.6-2.6) mg/dL Total Bilirubin (0.0-1.0) mg/dL AST (5-31) U/L ALT (0-31) U/L Alkaline Phosphatase (39-117) U/L Ammonia (13-55) umol/L Total Creatine Kinase (26-140) U/L Troponin I High Sens 307.4 H* (<3.5-17.0) ng/L C-Reactive Protein (< or = 0.50) mg/dL B-Natriuretic Peptide 872 H 865 H (<100) pg/mL Total Protein (6.5-8.0) g/dL Albumin (3.5-5.0) g/dL TSH (0.32-4.0) uIU/mL Urine Color Urine Appearance Urine pH (5.0-8.0) Ur Specific [place] (1.005-1.025) Urine Protein (NEG-TRACE) MG/DL Urine Glucose (UA) (NEG) MG/DL Urine Ketones (NEG) MG/DL Urine Blood (NEG) Urine Nitrite (NEG) Ur Leukocyte Esterase (NEG) Urine RBC (0) /HPF Urine WBC (0-4) /HPF Ur Squamous Epith Cells /LPF Urine Bacteria /LPF Urine Opiates Screen (Not Detect) Urine Fentanyl Screen (Not Detect) Ur Barbiturates Screen (Not Detect) Ur Phencyclidine Scrn (Not Detect) Ur Amphetamines Screen (Not Detect) U Benzodiazepines Scrn (Not Detect) Urine Cocaine Screen (Not Detect) U Marijuana (THC) Screen (Not Detect) COVID-19 (JACQUELINE) Negative (Negative) COVID-19 Clin Com See Note ECG Data Attestation: I personally reviewed and interpreted this ECG as follows: Prior ECG tracings: not available for review Interpretation: Ventricular rate of 76, [place] normal, QRS normal, QT prolongued, QTC normal. EKG shows normal sinus rhythm with left atrial enlargement and incomplete right bundle branch block there also inverted T-waves in the anterior leads. No previous EKGs to compare with. This EKG was delayed as patient was not cooperating initially however after medication restraints patient allowed EKG. Critical Care Time Critical Care Time Critical Care Time: Yes Total Critical Care Time: 35 Attestation: Obtaining history, physical exam, reviewing charts and imaging, reviewing patient's medical history, speaking to family, speaking to Cardiology and my attending. Discharge Plan Discharge Clinical Impression: Altered mental status, Elevated troponin, CKD (chronic kidney disease) Patient Disposition: Admitted As Inpatient
[2021-08-18 15:53] LABS: MANUAL DIFF FLAG NO
[2021-08-18 16:01] LABS: Basophils Percent Auto 0.2 % (0-2); Eosinophils Percent Auto 0.3 % (0-4); Hemoglobin 9.5 g/dl (12.0-16.0); Imm Gran Abs Auto 0.04 X10*3/uL (0.00-0.03); Imm Gran Pct Auto 0.7 % (0.0-0.4); Lymphocytes Absolute Auto 0.7 X10*3/uL (1.2-4.9); Lymphocytes Percent Auto 11.2 % (20-40); Mean Corpuscular HGB Conc 33.9 g/dl (31.0-35.0); Mean Corpuscular Hemoglobin 28.8 pg (27.0-33.0); Mean Corpuscular Volume 84.8 fL (80.0-98.0); Mean Platelet Volume 10.1 fL (9.4-12.3); Monocytes Absolute Auto 0.4 X10*3/uL (0.1-1.2); Monocytes Percent Auto 5.8 % (2-11); Neutrophils Percent Auto 81.8 % (45-73); Platelet Count 353 X10*3/uL (160-400); Red Cell Distribution Width 13.2 % (11.0-16.0); White Blood Count 6.1 X10*3/uL (4.8-10.8)
[2021-08-18 16:08] LABS: Appearance Urine CLEAR; Color Urine YELLOW; Glucose Urine UA NEG (NEG); Leukocyte Esterase Urine TRACE (NEG); Nitrite Urine NEG (NEG); Specific Gravity - Urine <= 1.005 (1.005-1.025); UACC Culture Trigger YES; Urine Blood NEG (NEG); Urine Ketones NEG (NEG); Urine Protein NEG (NEG-TRACE)
[2021-08-18 16:11] LABS: Ammonia 16 umol/L (13-55)
[2021-08-18 16:12] LABS: Alanine Aminotransferase 43 U/L (0-31); Albumin Level 3.3 g/dL (3.5-5.0); Alkaline Phosphatase 28 U/L (39-117); Anion Gap 12 (12-20); Aspartate Amino Transferase 65 U/L (5-31); Bilirubin Total 0.9 mg/dL (0.0-1.0); Blood Urea Nitrogen 41 mg/dL (9-16); Calcium 9.4 mg/dL (8.4-10.2); Carbon Dioxide 23 mmol/L (22-29); Chloride 98 mmol/L (96-108); Creatinine Clr Calc Pharmacy 24.2; Estimated Glomerular Filt Rate 36; Glucose Random 109 mg/dL (60-115); Magnesium 1.6 mg/dL (1.6-2.6); Potassium 3.2 mmol/L (3.3-5.1); Sodium 130 mmol/L (135-145); Total Protein 5.5 g/dL (6.5-8.0)
[2021-08-18 16:16] LABS: Bacteria Urine 1+ /LPF; RBC Urine 0 /HPF (0); Squamous Epithelial Cell Urine 2+ /LPF
[2021-08-18 16:21] LABS: Troponin-I High Sensitivity 321.4 ng/L (<3.5-17.0)
[2021-08-18 16:22] LABS: Amphetamine Screen Urine Not Detected (Not Detect); Barbiturates, Urine Not Detected (Not Detect); Benzodiazepines Screen Urine Not Detected (Not Detect); Cannabinoid Screen Urine Not Detected (Not Detect); Cocaine Screen Urine Not Detected (Not Detect); Fentanyl, urine Not Detected (Not Detect); Opiate Screen Urine Not Detected (Not Detect); Phencyclidine Screen Urine Not Detected (Not Detect)
[2021-08-18 16:25] LABS: COVID-19 Test Negative (Negative)
[2021-08-18] MEDS: Haloperidol Lactate 5 MG/ML VIAL IM (16:32)
[2021-08-18] MEDS: LORazepam 2 MG/ML VIAL IM (16:32)
--- NOTE | 2021-08-18 17:03 | PC.NURSE ---
patient difficult to redirect, attempting multiple times to [facility]. patient uncooperative with staff, threatening staff. patient also forgetful and not remembering hat staff is telling her needs to be done to care for her. PA order for Ativan/Haldol IM, held off at first because patient was beginning to comply with treatment, but gave at 1640 because patient again tried to leave. RN. tech and security attempted multiple times to redirect patient and encouraged her to allow staff to care for her but not successful. patient took med willingly, calming down at this time, laying in stretcher eating ruddy crackers.
[2021-08-18 18:30] VITALS: BP 121/61; PULSE 70; RESP 16; O2SAT 97
[2021-08-18] MEDS: iohexoL 350 MG/ML 100 ML INFUS..BTL IV (19:08)
[2021-08-18 19:50] LABS: B Type Natriuretic Peptide 872 pg/mL (<100); Troponin-I High Sensitivity 307.4 ng/L (<3.5-17.0)
--- NOTE | 2021-08-18 20:09 | PC.NURSE ---
pt not awake, per provider hold PO potassium at this time. pathology technologist at bedside to draw BNP, per provider wait until BNP results before starting fluids
[2021-08-18 20:41] LABS: B Type Natriuretic Peptide 865 pg/mL (<100)
[2021-08-18 20:56] LABS: Thyroid Stimulating Hormone 1.41 uIU/mL (0.32-4.0)
[2021-08-18 21:24] VITALS: BP 103/52; PULSE 61; RESP 14; O2SAT 99
[2021-08-18 21:52] LABS: C Reactive Protein 1.31 mg/dL (< or = 0.50)
--- NOTE | 2021-08-18 22:03 | PHA.MEDREC ---
Pharmacy Consult ? Medication Reconciliation Pharmacy has completed the medication reconciliation. Completed med rec based on pharm claim history and pt md office note from April, Tried to call son and he didnt call back Merline Gallegos PharmD
--- NOTE | 2021-08-18 22:20 | P.HPHOSP_ITS ---
History of Present Illness Date of Service: 08/18/21 Chief Complaint: Altered mental status 80-year-old female with a past medical history of hypertension, hyperlipidemia, hyperparathyroidism status post parathyroidectomy, osteopenia, anxiety, anemia, CKD stage 3 with baseline creatinine around 1.21.3; lives at home with a son; presented to the hospital with a chief complaint of confusion. Patient received Haldol and Ativan in the ER secondary to agitation currently drowsy and sleeping; most of the history obtained from the ER staff, records. A tried to call the patient's son-unable to reach over the phone, left voice message with call back number. As reported by the ER staff patient has been confused over the past 1 week for patient's son. Today patient noted to be more confused. Came to the hospital by EMS. Patient initially confused and agitated in the ER, wanted to leave the hospital; patient was given Haldol and Ativan. On labs patient noted to have creatinine of 1.4-close to baseline; hemoglobin at baseline; no obvious signs of infection; chest x-ray showed mild cardiomegaly; CT angio chest showed no evidence of pulmonary embolism; troponins are indeterminate at 03:21 the follow-up troponins 307; EKG showed T-wave inversions in the anteriorolateral leads which are new compared to the EKG of June 2020 at [facility]. Discussed with Cardiology-given patient has no pain; less concern for NSTEMI; did not recommend any heparin drip. Mentioned likely secondary to reduced clearance for renal insufficiency. Admitted to the hospital for further management PMFSH Pertinent family history: Unable to obtain history Social History Alcohol intake: never Patient Tobacco Use Status: Never used Tobacco Use of substances other than those prescribed or required for medical reasons: No Advance Directives: No Advance Directives Information Provided: Yes Meds Allergies Allergy/AdvReac Type Severity Reaction Status Date / Time No Known Allergies Allergy Unverified 03/18/20 15:04 [No Known Allergies*] Active Medications: Current Medications Acetaminophen (Acetaminophen 325 Mg Tablet) 650 mg PO Q6H PRN PRN Reason: Pain, Mild (Pain Scale 1-3) Heparin Sodium (Porcine) (Heparin Sodium,Porcine 5,000 Unit/Ml Vial) 5,000 unit SUBCUT Q12H GERARD Melatonin (Melatonin 3 Mg Tablet) 6 mg PO BEDTIME PRN PRN Reason: Insomnia Pharmacy Consult (Consult Rx Perform Med Rec) 1 each MISCELLANE ONCE PRN PRN Reason: Consult order Senna (Sennosides 8.6 Mg Tablet) 17.2 mg PO BEDTIME PRN PRN Reason: Constipation Sodium Chloride (0.9 % Sodium Chloride Flush 3 Ml Syringe) 3 ml IVFLUSH QSHIFT [facility] Home Medications Medication Instructions Recorded Confirmed Last Taken Type amlodipine 5 mg tablet 1 tab PO BID 08/18/21 08/18/21 Unknown History calcium carbonate 600 mg calcium 600 mg PO DAILY 08/18/21 08/18/21 Unknown History (1,500 mg) tablet cholecalciferol (vitamin D3) 50 50 mcg PO DAILY 08/18/21 08/18/21 Unknown History mcg (2,000 unit) tablet cinacalcet 60 mg tablet 1 tab PO DAILY 08/18/21 08/18/21 Unknown History clonidine HCl 0.1 mg tablet 0.2 mg PO BID 08/18/21 08/18/21 Unknown History fenofibrate nanocrystallized 145 1 tab PO DAILY 08/18/21 08/18/21 Unknown History mg tablet irbesartan 300 mg tablet 1 tab PO DAILY 08/18/21 08/18/21 Unknown History omeprazole 20 mg capsule,delayed 20 mg PO DAILY 08/18/21 08/18/21 Unknown History release tizanidine 4 mg tablet 4 mg PO Q6H PRN 08/18/21 08/18/21 Unknown History Physical Exam Vital Signs and Narrative: Vital Signs: Last Vital Signs Temp 98.2 F 08/18/21 13:49 Pulse 61 08/18/21 21:24 Resp 14 08/18/21 21:24 BP 103/52 L 08/18/21 21:24 Pulse Ox 99 08/18/21 21:24 BMI result Body Mass Index 23.8 Gen: Appears be in no acute distress HEENT: NCAT, Moist mucosa. Pulmonary: Vesicular breath sounds, fair air entry CVS: Normal S1-S2 Abdomen: BS+, Soft, Nontender Extremities: Warm well perfused Neuro: Drowsy Results Labs CBC and Chem 7: 08/18/21 15:46 08/18/21 15:46 Labs: Laboratory Results - last 24 hr 08/18/21 08/18/21 08/18/21 15:46 15:46 15:46 MCV 84.8 MCH 28.8 MCHC 33.9 RDW 13.2 Plt Count 353 MPV 10.1 Immature Gran % (Auto) 0.7 H Neut % (Auto) 81.8 H Lymph % (Auto) 11.2 L Sullivan % (Auto) 5.8 Eos % (Auto) 0.3 Baso % (Auto) 0.2 Lymph # (Auto) 0.7 L Sullivan # (Auto) 0.4 Eos # (Auto) 0.0 Baso # (Auto) 0.0 Abs Immat Gran (auto) 0.04 H Absolute Neuts (auto) 5.0 Absolute Nucleated RBC 0.000 Nucleated RBC % (auto) 0.0 Anion Gap 12 Estim Creat Clear Calc 24.2 Estimated GFR 36 Random Glucose 109 Calcium 9.4 D Magnesium 1.6 Total Bilirubin 0.9 AST 65 H ALT 43 H Alkaline Phosphatase 28 L Ammonia 16 Total Creatine Kinase 83 C-Reactive Protein 1.31 H B-Natriuretic Peptide Total Protein 5.5 L Albumin 3.3 L TSH 1.41 Urine Color Urine Appearance Urine pH Ur Specific [place] Urine Protein Urine Glucose (UA) Urine Ketones Urine Blood Urine Nitrite Ur Leukocyte Esterase Urine RBC Urine WBC Ur Squamous Epith Cells Urine Bacteria Urine Opiates Screen Urine Fentanyl Screen Ur Barbiturates Screen Ur Phencyclidine Scrn Ur Amphetamines Screen U Benzodiazepines Scrn Urine Cocaine Screen U Marijuana (THC) Screen COVID-19 (JACQUELINE) COVID-19 Clin Com 08/18/21 08/18/21 08/18/21 15:57 15:57 15:59 MCV MCH MCHC RDW Plt Count MPV Immature Gran % (Auto) Neut % (Auto) Lymph % (Auto) Sullivan % (Auto) Eos % (Auto) Baso % (Auto) Lymph # (Auto) Sullivan # (Auto) Eos # (Auto) Baso # (Auto) Abs Immat Gran (auto) Absolute Neuts (auto) Absolute Nucleated RBC Nucleated RBC % (auto) Anion Gap Estim Creat Clear Calc Estimated GFR Random Glucose Calcium Magnesium Total Bilirubin AST ALT Alkaline Phosphatase Ammonia Total Creatine Kinase C-Reactive Protein B-Natriuretic Peptide Total Protein Albumin TSH Urine Color YELLOW Urine Appearance CLEAR Urine pH 6.0 Ur Specific [place] <= 1.005 Urine Protein NEG Urine Glucose (UA) NEG Urine Ketones NEG Urine Blood NEG Urine Nitrite NEG Ur Leukocyte Esterase TRACE H Urine RBC 0 Urine WBC 1-4 Ur Squamous Epith Cells 2+ Urine Bacteria 1+ Urine Opiates Screen Not Detected Urine Fentanyl Screen Not Detected Ur Barbiturates Screen Not Detected Ur Phencyclidine Scrn Not Detected Ur Amphetamines Screen Not Detected U Benzodiazepines Scrn Not Detected Urine Cocaine Screen Not Detected U Marijuana (THC) Screen Not Detected COVID-19 (JACQUELINE) Negative COVID-19 Clin Com See Note 08/18/21 08/18/21 19:14 20:15 MCV MCH MCHC RDW Plt Count MPV Immature Gran % (Auto) Neut % (Auto) Lymph % (Auto) Sullivan % (Auto) Eos % (Auto) Baso % (Auto) Lymph # (Auto) Sullivan # (Auto) Eos # (Auto) Baso # (Auto) Abs Immat Gran (auto) Absolute Neuts (auto) Absolute Nucleated RBC Nucleated RBC % (auto) Anion Gap Estim Creat Clear Calc Estimated GFR Random Glucose Calcium Magnesium Total Bilirubin AST ALT Alkaline Phosphatase Ammonia Total Creatine Kinase C-Reactive Protein B-Natriuretic Peptide 872 H 865 H Total Protein Albumin TSH Urine Color Urine Appearance Urine pH Ur Specific [place] Urine Protein Urine Glucose (UA) Urine Ketones Urine Blood Urine Nitrite Ur Leukocyte Esterase Urine RBC Urine WBC Ur Squamous Epith Cells Urine Bacteria Urine Opiates Screen Urine Fentanyl Screen Ur Barbiturates Screen Ur Phencyclidine Scrn Ur Amphetamines Screen U Benzodiazepines Scrn Urine Cocaine Screen U Marijuana (THC) Screen COVID-19 (JACQUELINE) COVID-19 Clin Com Imaging Radiologist's Impressions: Impressions Chest X-Ray 08/18/21 18:50 IMPRESSION: Cardiomegaly. Clear lungs. Chest CTA 08/18/21 19:24 IMPRESSION: No evidence of pulmonary emboli. No acute findings in the chest. Mild dependent atelectasis. VTE: negative Head CT 08/18/21 19:24 IMPRESSION: No acute intracranial pathology. Assessment and Plan Plan 80-year-old female with a past medical history of hypertension, hyperlipidemia, hyperparathyroidism status post parathyroidectomy, osteopenia, anxiety, anemia, CKD stage 3 with baseline creatinine around 1.21.3; lives at home with a son; presented to the hospital with a chief complaint of confusion. Noted to have following Altered mental status: Symptoms have been going on for the past 1 week-waxing and waning; patient was intermittently A/O x4 in the ER. Urine is trace positive for leukocyte esterase; urine WBC 1-4; patient is afebrile and no leukocytosis-will hold off antibiotics for now. Follow fever curve Chest x-ray showed no evidence of pneumonia Will obtain TSH, folate, B12, RPR CT head showed no acute findings; Patient was initially unsteady upon walking in the ER. Unable to assess her neurological status currently given patient is drowsy lethargic secondary to the medications. Will consult Neurology Aspiration precautions Nursing swallow screen Fall precautions PT/OT eventually Elevated troponins: No mention of chest pain. EKG showed T-wave inversions in anterolateral leads. Troponins plateaued. Cardiology was notified-recommended no heparin drip currently. Likely reduced clearance for renal insufficiency. Echocardiogram CT angio chest showed no evidence of pulmonary embolism History of CKD: Patient baseline creatinine around 1.2-1.3. Currently creatinine is 1.4. Monitor renal function. History of hypertension: Patient's blood pressure currently on the soft side. Gentle IV fluids. Hold home amlodipine, irbesartan. Continue home clonidine with holding parameters. For all other chronic conditions, home medications will be continued including cinacalcet, fenofibrate. DVT prophylaxis: Subcu heparin Code status: Presumed full code for now Unable to reach the patient's son over the phone. To be confirmed by the day hospitalist in the morning time. Quality Stroke Does the patient have a stroke diagnosis?: No VTE Prior VTE?: No VTE Risk Level:: Medical - moderate - high VTE Device Contraindication: Treatment Not Indicated VTE Drug Contraindication: N/A - Med Ordered
[2021-08-18 23:17] VITALS: BP 116/60; PULSE 61; RESP 15; O2SAT 99
[2021-08-18 23:48] LABS: Thyroid Stimulating Hormone 2.15 uIU/mL (0.32-4.0)
[2021-08-18] MEDS: Heparin Sodium,Porcine 5,000 UNIT/ML VIAL 5000 UNIT SUBCUT (23:48)
[2021-08-19] VITALS (8 sets, daily range): BP systolic 109–144; BP diastolic 56–73; PULSE 60–85; RESP 12–20; TEMP 36.7; O2SAT 95–100
--- NOTE | 2021-08-19 01:45 | PC.NURSE ---
this RN contacted hospitalist for this pt regarding electrolyte replacement new orders to follow
[2021-08-19] MEDS: Potassium Chloride/H20 10 MEQ/100 ML PIGGYBACK 100 MEQ IV ×4 (02:19→05:45)
--- NOTE | 2021-08-19 02:30 | PC.NURSE ---
pt incontinent of urine. pt cleaned up by this RN and carpet cleaning technicianbrianna Singleton. pt set up with purewick. fresh warm blankets given. no distress noted at this time. call limon in reach.
[2021-08-19 06:49] LABS: Eosinophils Absolute Auto 0.1 X10*3/uL (0.0-0.4); Eosinophils Percent Auto 1.1 % (0-4); Hematocrit 27.9 % (37.0-47.0); Hemoglobin 9.5 g/dl (12.0-16.0); Imm Gran Abs Auto 0.03 X10*3/uL (0.00-0.03); Imm Gran Pct Auto 0.6 % (0.0-0.4); Lymphocytes Absolute Auto 0.5 X10*3/uL (1.2-4.9); Lymphocytes Percent Auto 9.9 % (20-40); MANUAL DIFF FLAG NO; Mean Corpuscular HGB Conc 34.1 g/dl (31.0-35.0); Mean Corpuscular Hemoglobin 29.1 pg (27.0-33.0); Mean Corpuscular Volume 85.3 fL (80.0-98.0); Mean Platelet Volume 9.7 fL (9.4-12.3); Monocytes Absolute Auto 0.3 X10*3/uL (0.1-1.2); Monocytes Percent Auto 6.5 % (2-11); Neutrophils Absolute Auto 3.8 x10*3/uL (2.0-8.3); Neutrophils Percent Auto 81.9 % (45-73); Platelet Count 328 X10*3/uL (160-400); Red Blood Count 3.27 X10*6/uL (4.20-5.50); Red Cell Distribution Width 13.5 % (11.0-16.0); White Blood Count 4.6 X10*3/uL (4.8-10.8)
[2021-08-19 07:04] LABS: Anion Gap 12 (12-20); Blood Urea Nitrogen 34 mg/dL (9-16); Calcium 8.9 mg/dL (8.4-10.2); Carbon Dioxide 21 mmol/L (22-29); Chloride 106 mmol/L (96-108); Creatinine Clr Calc Pharmacy 31.5; Estimated Glomerular Filt Rate 48; Glucose Random 89 mg/dL (60-115); Potassium 3.8 mmol/L (3.3-5.1); Sodium 135 mmol/L (135-145)
--- NOTE | 2021-08-19 08:30 | CA_ITS ---
Transthoracic Echocardiogram Patient (Last, First, Middle): Sonya Rogers M Gender: Female Date of : 1940 Age: 80 Procedure Date: 08/19/2021 Procedure Type: Transthoracic Echocardiogram Location: ER Height: 154.94 cm Weight: 57.15 kg BSA: 1.55 m2 Heart Rate: bpm BP: 125 / 66 mmHg Floor Scraper: VH/TO Referring MD: Asad Austin MD [employer] Consultant: Daniel Alves MD Symptoms: Elevated troponins Study Quality: Fair Conclusions: - 1. Mildly reduced LV systolic function with grade 1 diastolic dysfunction 2. Moderately dilated left atrium 3. Normal cardiac valvular Doppler 4. Normal RV systolic pressure 5. No pericardial effusion Findings Left Ventricle The left ventricular systolic function is mildly decreased. The visually estimated ejection fraction is between 45-50%. Spectral Doppler is indicative of an impaired relaxation filling pattern. E/E prime ratio is <8, consistent with normal filling pressures. Evidence suggests grade I (mild) diastolic dysfunction. Wall Motion Rest Echo Findings The basal inferior and basal inferoseptal segments are hypokinetic. All other scored wall segments showed normal motion. Right Ventricle Normal right ventricular cavity size and systolic function. Atria The left atrium is moderately dilated. There is no evidence of interatrial shunt. The right atrium is likely dilated. Aortic Valve There is mild thickening of the aortic valve. There is no aortic valve stenosis. There is no aortic valve regurgitation. Mitral Valve There is mild posterior mitral leaflet thickening. There is trace mitral valve regurgitation. There is no mitral valve stenosis. Pulmonic Valve The pulmonic valve was not well visualized. Tricuspid Valve Likely normal tricuspid valve structure and function. Tricuspid regurgitation envelope is inadequate for calculation of right ventricular systolic pressure. Great Vessels All visible segments of the aorta are normal in size. The pulmonary artery was not well visualized. Venous The inferior vena cava is normal in size and collapses greater than 50% with inspiration. Pericardium/Pleural There is no evidence of pericardial effusion. Prior Study Comparison No prior study available for comparison. Measurements 2D Linear Measurements IVSd: 1.11 0.6-0.9/0.6-1.0 cm LVIDd: 5.21 3.9-5.3/4.2-5.9 cm LVIDd Index: 3.36 2.4-3.2/2.2-3.1 cm/m2 LVIDs: 3.68 2.0-3.6 cm LVPWd: 1.07 0.7-1.1 cm Ao Root: 2.60 2.1-3.5 cm LA Diam: 4.10 2.7-3.8/3.0-4.0 cm LAIDs Index: 2.65 1.5-2.3 cm/m2 LV Mass: 272.65 67-162/88-224 g LV Mass Index: 175.90 43-95/49-115 g/m2 LVOT Diam: 2.00 3.0+(-)1.3 cm 2D Systolic Function EF 4C: 46.90 >55% EF 2C: 42.30 >55% EF BiP: 43.80 >55% Mitral Valve MV Pk E: 0.47 MV PK A: 0.92 MV Decel Time: 221.00 E/A: 0.50 E'Lateral: 5.00 E'Medial: 5.66 E/E' Med: 8.30 E/E' Lat: 9.30 PHT: 65.00 MVA PHT: 3.38 Decel Frontier: 2.11 Aortic Valve AoV Pk Samm: 1.75 AoV Mn Samm: 1.25 AoV VTI: 0.38 AoV Pk Grad: 12.00 Aov Mn Grad: 7.00 ITZ Cont.VTI: 1.81 LVOT LVOT Pk Samm: 0.91 LVOT Mn Samm: 0.54 LVOT VTI: 0.22 LVOT Pk Grad: 3.00 LVOT Mn Grad: 2.00 LVOT Diam: 2.00 LVOT Area: 3.14 Diastolic Function MV Pk E: 0.47 MV Pk A: 0.92 E/A: 0.50 E'Medial: 5.66 E/E' Med: 8.30 E' Laterial: 5.00 E/E' Lat: 9.30 Right Ventricle TAPSE (mm): 22.00 TVS' Samm: 12.40 Great Vessels Aorta Ao Root-2D: 2.60 2.0-3.7 cm Ao Asc: 3.20 2.1-3.4 cm Pulmonary Valve PV Pk Samm: 0.82 Peak PV Grad: 3.00 Updated in Other Vendor System with Status of Final Daniel Alves MD electronically signed on 08/19/2021 1:53:04 PM with status of Final
[2021-08-19 08:47] LABS: Syphilis Screen Nonreactive (Nonreactive)
[2021-08-19] MEDS: Fenofibrate,Micronized 134 MG CAPSULE PO (09:32)
[2021-08-19] MEDS: Cinacalcet HCl 30 MG TABLET 60 MG PO (09:32)
[2021-08-19] MEDS: cloNIDine HCL 0.2 MG TABLET PO ×2 (09:36→22:56)
[2021-08-19] MEDS: Cholecalciferol (Vitamin D3) 25 MCG TABLET 50 MCG PO (09:36)
[2021-08-19] MEDS: Omeprazole 20 MG CAPSULE.DR PO (09:37)
[2021-08-19] MEDS: Calcium Carbonate 750 MG TAB.CHEW PO (09:37)
[2021-08-19] MEDS: 0.9 % Sodium Chloride Flush 3 ML SYRINGE IVFLUSH ×2 (09:38→16:14)
[2021-08-19 09:39] LABS: Folate 3.2 ng/mL (> or = 4.0); Vitamin B12 649 pg/mL (200-900)
--- NOTE | 2021-08-19 09:52 | MHC.CM.PN ---
Attempted to meet with patient in regards to discharge planning. Patient currently confused. No family present. Attempted to speak with patient's son/HCP, Jerald via telephone at [phone]. Left message explaining IMM and requesting return telephone call. IMM sent via certified mail. Case management assessment completed using medical record. Patient lives alone. Patient has been having increased episodes of AMS. PCP verified as Erica Yancey. Copy of HCP obtained from PCP's office. Patient received Moderna vaccines on 10/19/20 and 11/16/20. When patient is medically stable, a psych eval to see if patient has the capacity to make her own medical decisions may be needed due to AMS. Continue to monitor for d/c needs.
--- NOTE | 2021-08-19 10:24 | HO.PM.IMPN ---
Subjective Subjective Date of Service: 08/19/21 Interval History: cc: weak, ams interval hsitory: still feeling off Cardiovascular Cardiovascular: Reports no additional cardiovascular complaints Gastrointestinal Gastrointestinal: Reports no additional gastrointestinal complaints Physical Exam Vital Signs: Vital Signs: Last Vital Signs Temp 98.2 F 08/18/21 13:49 Pulse 85 08/19/21 06:29 Resp 16 08/19/21 06:29 BP 144/73 H 08/19/21 06:29 Pulse Ox 99 08/19/21 06:29 BMI result Body Mass Index 23.8 Const: Other: General: AO X 3, no acute distress Resp: CTA bilateral, no accessory muscles used CVS: S1,S2,RRR GI: soft, non tender, non distended Neuro: motor grossly intact, alert Psych: appropriate affect, impaired insight Objective Data Active Medications Acetaminophen (Acetaminophen 325 Mg Tablet) 650 mg PO Q6H PRN PRN Reason: Pain, Mild (Pain Scale 1-3) Calcium Carbonate (Calcium Carbonate 750 Mg Tab.Chew) 750 mg PO DAILY [facility] Last Admin: 08/19/21 09:37 Dose: 750 mg Documented by: RUDI Cinacalcet (Cinacalcet Hcl 30 Mg Tablet) 60 mg PO DAILY [facility] Last Admin: 08/19/21 09:32 Dose: 60 mg Documented by: RUDI Clonidine HCl (Clonidine Hcl 0.2 Mg Tablet) 0.2 mg PO BID [facility]; Protocol Last Admin: 08/19/21 09:36 Dose: 0.2 mg Documented by: RUDI Fenofibrate (Fenofibrate,Micronized 134 Mg Capsule) 134 mg PO DAILY [facility] Last Admin: 08/19/21 09:32 Dose: 134 mg Documented by: RUDI Heparin Sodium (Porcine) (Heparin Sodium,Porcine 5,000 Unit/Ml Vial) 5,000 unit SUBCUT Q12H [facility] Last Admin: 08/18/21 23:48 Dose: 5,000 unit Documented by: CASEY Melatonin (Melatonin 3 Mg Tablet) 6 mg PO BEDTIME PRN PRN Reason: Insomnia Omeprazole (Omeprazole 20 Mg Capsule.) 20 mg PO DAILY@0630 [facility] Last Admin: 08/19/21 09:37 Dose: 20 mg Documented by: RUDI Pharmacy Consult (Consult Rx Perform Med Rec) 1 each MISCELLANE ONCE PRN PRN Reason: Consult order Senna (Sennosides 8.6 Mg Tablet) 17.2 mg PO BEDTIME PRN PRN Reason: Constipation Sodium Chloride (0.9 % Sodium Chloride Flush 3 Ml Syringe) 3 ml IVFLUSH QSHIFT [facility] Last Admin: 08/19/21 09:38 Dose: 3 ml Documented by: RUDI Tizanidine HCl (Tizanidine Hcl 4 Mg Tablet) 4 mg PO Q6H PRN PRN Reason: Muscle Spasm Vitamin D (Cholecalciferol (Vitamin D3) 25 Mcg Tablet) 50 mcg PO DAILY [facility] Last Admin: 08/19/21 09:36 Dose: 50 mcg Documented by: RUDI Labs CBC & Chem 7: 08/19/21 06:40 08/19/21 06:40 Labs: Laboratory Results - last 24 hr 08/18/21 08/18/21 08/18/21 15:46 15:46 15:46 MCV 84.8 MCH 28.8 MCHC 33.9 RDW 13.2 Plt Count 353 MPV 10.1 Immature Gran % (Auto) 0.7 H Neut % (Auto) 81.8 H Lymph % (Auto) 11.2 L [place] % (Auto) 5.8 Eos % (Auto) 0.3 Baso % (Auto) 0.2 Lymph # (Auto) 0.7 L [place] # (Auto) 0.4 Eos # (Auto) 0.0 Baso # (Auto) 0.0 Abs Immat Gran (auto) 0.04 H Absolute Neuts (auto) 5.0 Absolute Nucleated RBC 0.000 Nucleated RBC % (auto) 0.0 Anion Gap 12 Estim Creat Clear Calc 24.2 Estimated GFR 36 Random Glucose 109 Calcium 9.4 D Magnesium 1.6 Total Bilirubin 0.9 AST 65 H ALT 43 H Alkaline Phosphatase 28 L Ammonia 16 Total Creatine Kinase 83 C-Reactive Protein 1.31 H B-Natriuretic Peptide Total Protein 5.5 L Albumin 3.3 L Vitamin B12 Folate TSH 1.41 Urine Color Urine Appearance Urine pH Ur Specific [place] Urine Protein Urine Glucose (UA) Urine Ketones Urine Blood Urine Nitrite Ur Leukocyte Esterase Urine RBC Urine WBC Ur Squamous Epith Cells Urine Bacteria Urine Opiates Screen Urine Fentanyl Screen Ur Barbiturates Screen Ur Phencyclidine Scrn Ur Amphetamines Screen U Benzodiazepines Scrn Urine Cocaine Screen U Marijuana (THC) Screen T.pallidum Ab (EIA) COVID-19 (JACQUELINE) COVID-19 Clin Com 08/18/21 08/18/21 08/18/21 15:57 15:57 15:59 MCV MCH MCHC RDW Plt Count MPV Immature Gran % (Auto) Neut % (Auto) Lymph % (Auto) [place] % (Auto) Eos % (Auto) Baso % (Auto) Lymph # (Auto) [place] # (Auto) Eos # (Auto) Baso # (Auto) Abs Immat Gran (auto) Absolute Neuts (auto) Absolute Nucleated RBC Nucleated RBC % (auto) Anion Gap Estim Creat Clear Calc Estimated GFR Random Glucose Calcium Magnesium Total Bilirubin AST ALT Alkaline Phosphatase Ammonia Total Creatine Kinase C-Reactive Protein B-Natriuretic Peptide Total Protein Albumin Vitamin B12 Folate TSH Urine Color YELLOW Urine Appearance CLEAR Urine pH 6.0 Ur Specific [place] <= 1.005 Urine Protein NEG Urine Glucose (UA) NEG Urine Ketones NEG Urine Blood NEG Urine Nitrite NEG Ur Leukocyte Esterase TRACE H Urine RBC 0 Urine WBC 1-4 Ur Squamous Epith Cells 2+ Urine Bacteria 1+ Urine Opiates Screen Not Detected Urine Fentanyl Screen Not Detected Ur Barbiturates Screen Not Detected Ur Phencyclidine Scrn Not Detected Ur Amphetamines Screen Not Detected U Benzodiazepines Scrn Not Detected Urine Cocaine Screen Not Detected U Marijuana (THC) Screen Not Detected T.pallidum Ab (EIA) COVID-19 (JACQUELINE) Negative COVID-19 Clin Com See Note 08/18/21 08/18/21 08/18/21 19:14 20:15 23:07 MCV MCH MCHC RDW Plt Count MPV Immature Gran % (Auto) Neut % (Auto) Lymph % (Auto) [place] % (Auto) Eos % (Auto) Baso % (Auto) Lymph # (Auto) [place] # (Auto) Eos # (Auto) Baso # (Auto) Abs Immat Gran (auto) Absolute Neuts (auto) Absolute Nucleated RBC Nucleated RBC % (auto) Anion Gap Estim Creat Clear Calc Estimated GFR Random Glucose Calcium Magnesium Total Bilirubin AST ALT Alkaline Phosphatase Ammonia Total Creatine Kinase C-Reactive Protein B-Natriuretic Peptide 872 H 865 H Total Protein Albumin Vitamin B12 Folate TSH 2.15 Urine Color Urine Appearance Urine pH Ur Specific [place] Urine Protein Urine Glucose (UA) Urine Ketones Urine Blood Urine Nitrite Ur Leukocyte Esterase Urine RBC Urine WBC Ur Squamous Epith Cells Urine Bacteria Urine Opiates Screen Urine Fentanyl Screen Ur Barbiturates Screen Ur Phencyclidine Scrn Ur Amphetamines Screen U Benzodiazepines Scrn Urine Cocaine Screen U Marijuana (THC) Screen T.pallidum Ab (EIA) COVID-19 (JACQUELINE) COVID-19 [employer] 08/18/21 08/18/21 08/19/21 23:07 23:07 06:40 MCV 85.3 MCH 29.1 MCHC 34.1 RDW 13.5 Plt Count 328 MPV 9.7 Immature Gran % (Auto) 0.6 H Neut % (Auto) 81.9 H Lymph % (Auto) 9.9 L [place] % (Auto) 6.5 Eos % (Auto) 1.1 Baso % (Auto) 0.0 Lymph # (Auto) 0.5 L [place] # (Auto) 0.3 Eos # (Auto) 0.1 Baso # (Auto) 0.0 Abs Immat Gran (auto) 0.03 Absolute Neuts (auto) 3.8 Absolute Nucleated RBC 0.000 Nucleated RBC % (auto) 0.0 Anion Gap Estim Creat Clear Calc Estimated GFR Random Glucose Calcium Magnesium Total Bilirubin AST ALT Alkaline Phosphatase Ammonia Total Creatine Kinase C-Reactive Protein B-Natriuretic Peptide Total Protein Albumin Vitamin B12 649 Folate 3.2 L TSH Urine Color Urine Appearance Urine pH Ur Specific [place] Urine Protein Urine Glucose (UA) Urine Ketones Urine Blood Urine Nitrite Ur Leukocyte Esterase Urine RBC Urine WBC Ur Squamous Epith Cells Urine Bacteria Urine Opiates Screen Urine Fentanyl Screen Ur Barbiturates Screen Ur Phencyclidine Scrn Ur Amphetamines Screen U Benzodiazepines Scrn Urine Cocaine Screen U Marijuana (THC) Screen T.pallidum Ab (EIA) Nonreactive COVID-19 (JACQUELINE) COVID-19 [facility] Com 08/19/21 06:40 MCV MCH MCHC RDW Plt Count MPV Immature Gran % (Auto) Neut % (Auto) Lymph % (Auto) [place] % (Auto) Eos % (Auto) Baso % (Auto) Lymph # (Auto) [place] # (Auto) Eos # (Auto) Baso # (Auto) Abs Immat Gran (auto) Absolute Neuts (auto) Absolute Nucleated RBC Nucleated RBC % (auto) Anion Gap 12 Estim Creat Clear Calc 31.5 Estimated GFR 48 Random Glucose 89 Calcium 8.9 Magnesium Total Bilirubin AST ALT Alkaline Phosphatase Ammonia Total Creatine Kinase C-Reactive Protein B-Natriuretic Peptide Total Protein Albumin Vitamin B12 Folate TSH Urine Color Urine Appearance Urine pH Ur Specific [place] Urine Protein Urine Glucose (UA) Urine Ketones Urine Blood Urine Nitrite Ur Leukocyte Esterase Urine RBC Urine WBC Ur Squamous Epith Cells Urine Bacteria Urine Opiates Screen Urine Fentanyl Screen Ur Barbiturates Screen Ur Phencyclidine Scrn Ur Amphetamines Screen U Benzodiazepines Scrn Urine Cocaine Screen U Marijuana (THC) Screen T.pallidum Ab (EIA) COVID-19 (JACQUELINE) COVID-19 Clin Com Assessment and Plan (1) Dementia in Alzheimer's disease with delirium: Status: Acute Plan 80F called EMS for weakness, found to be confused. weakness due to hypotension and MIKAYLA likely dehydratoin improved with IVF monitor dementia with acute delerium orienting strategies monitor elevated troponin denies chest pain, poor historian check repeat, echo, cardio eval elevated lfts, chronic presumed fatty liver check hepatitis profile htn arb held for hypotension folate deficiency 3.2, replace Quality Stroke Does the patient have a stroke diagnosis?: No VTE Prior VTE?: Yes VTE Risk Level:: Medical - moderate - high VTE Device Contraindication: Treatment Not Indicated VTE Drug Contraindication: N/A - Med Ordered
--- NOTE | 2021-08-19 10:30 | PC.NURSE ---
pt alert and pleasantly confused. compliant with morning meds. breakfast given. pt denies pain, pt assisted to restroom by medical nurse. will continue to monitor
[2021-08-19] MEDS: Heparin Sodium,Porcine 5,000 UNIT/ML VIAL 5000 UNIT SUBCUT ×2 (12:00→22:56)
--- NOTE | 2021-08-19 12:07 | PM.NEUROCN ---
History of Present Illness Data of Consult Service Date: 08/19/21 Primary Care Provider: Unknown Physician HPI Reason for consult: Change in mental status 80 years old woman who I was asked to see for confusion or change in mental status. She was unable to provide any meaningful history. Apparently there was no sign of any recent fall trauma or seizure-like episode. There was no cold or flu-like illness. Review of Systems Review of Systems: As in HPI. [facility] Past Medical History Medical History (Updated 08/19/21 @ 10:22 by Nathaniel Mak MD) CKD (chronic kidney disease), stage II DVT (deep venous thrombosis) Fatty liver HLD (hyperlipidemia) HTN (hypertension) Social History Social History Alcohol intake: never Patient Tobacco Use Status: Never used Tobacco Use of substances other than those prescribed or required for medical reasons: No Advance Directives: No Advance Directives Information Provided: Yes service: No Current occupational status: retired Meds Allergies Allergy/AdvReac Type Severity Reaction Status Date / Time No Known Allergies Allergy Unverified 03/18/20 15:04 [No Known Allergies*] Active Medications: Current Medications Acetaminophen (Acetaminophen 325 Mg Tablet) 650 mg PO Q6H PRN PRN Reason: Pain, Mild (Pain Scale 1-3) Calcium Carbonate (Calcium Carbonate 750 Mg Tab.Chew) 750 mg PO DAILY [facility] Last Admin: 08/19/21 09:37 Dose: 750 mg Documented by: Cinacalcet (Cinacalcet Hcl 30 Mg Tablet) 60 mg PO DAILY [facility] Last Admin: 08/19/21 09:32 Dose: 60 mg Documented by: Clonidine HCl (Clonidine Hcl 0.2 Mg Tablet) 0.2 mg PO BID [facility]; Protocol Last Admin: 08/19/21 09:36 Dose: 0.2 mg Documented by: Fenofibrate (Fenofibrate,Micronized 134 Mg Capsule) 134 mg PO DAILY [facility] Last Admin: 08/19/21 09:32 Dose: 134 mg Documented by: Folic Acid (Folic Acid 1 Mg Tablet) 1 mg PO DAILY [facility] Heparin Sodium (Porcine) (Heparin Sodium,Porcine 5,000 Unit/Ml Vial) 5,000 unit SUBCUT Q12H [facility] Last Admin: 08/19/21 12:00 Dose: 5,000 unit Documented by: Melatonin (Melatonin 3 Mg Tablet) 6 mg PO BEDTIME PRN PRN Reason: Insomnia Omeprazole (Omeprazole 20 Mg Capsule.) 20 mg PO DAILY@0630 [facility] Last Admin: 08/19/21 09:37 Dose: 20 mg Documented by: Pharmacy Consult (Consult Rx Perform Med Rec) 1 each MISCELLANE ONCE PRN PRN Reason: Consult order Senna (Sennosides 8.6 Mg Tablet) 17.2 mg PO BEDTIME PRN PRN Reason: Constipation Sodium Chloride (0.9 % Sodium Chloride Flush 3 Ml Syringe) 3 ml IVFLUSH QSHIFT [facility] Last Admin: 08/19/21 09:38 Dose: 3 ml Documented by: Tizanidine HCl (Tizanidine Hcl 4 Mg Tablet) 4 mg PO Q6H PRN PRN Reason: Muscle Spasm Vitamin D (Cholecalciferol (Vitamin D3) 25 Mcg Tablet) 50 mcg PO DAILY [facility] Last Admin: 08/19/21 09:36 Dose: 50 mcg Documented by: Home Medications Medication Instructions Recorded Confirmed Last Taken Type amlodipine 5 mg tablet 1 tab PO BID 08/18/21 08/18/21 Unknown History calcium carbonate 600 mg calcium 600 mg PO DAILY 08/18/21 08/18/21 Unknown History (1,500 mg) tablet cholecalciferol (vitamin D3) 50 50 mcg PO DAILY 08/18/21 08/18/21 Unknown History mcg (2,000 unit) tablet cinacalcet 60 mg tablet 1 tab PO DAILY 08/18/21 08/18/21 Unknown History clonidine HCl 0.1 mg tablet 0.2 mg PO BID 08/18/21 08/18/21 Unknown History fenofibrate nanocrystallized 145 1 tab PO DAILY 08/18/21 08/18/21 Unknown History mg tablet irbesartan 300 mg tablet 1 tab PO DAILY 08/18/21 08/18/21 Unknown History omeprazole 20 mg capsule,delayed 20 mg PO DAILY 08/18/21 08/18/21 Unknown History release tizanidine 4 mg tablet 4 mg PO Q6H PRN 08/18/21 08/18/21 Unknown History Physical Exam Vital Signs: Vital Signs: Last Vital Signs Temp 98.1 F 08/19/21 11:31 Pulse 73 08/19/21 11:31 Resp 12 08/19/21 11:31 BP 120/57 L 08/19/21 11:31 Pulse Ox 100 08/19/21 11:31 BMI result Body Mass Index 23.8 Neuro: Other: Alert and awake with significant difficulty hearing but able to read comprehend and answer simple questions. She was somewhat resistant and irritated. Face was symmetrical. Visual gupta are full. Extraocular muscles were intact. There was no focal weakness. Deep tendon reflexes were absent with flexor plantars. There was no abnormal body posturing. Results Labs CBC & Chem 7: 08/19/21 06:40 08/19/21 06:40 Labs: Short CBC 08/18/21 08/19/21 Range/Units 15:46 06:40 WBC 6.1 4.6 L (4.8-10.8) X10*3/uL Hgb 9.5 L 9.5 L (12.0-16.0) g/dl Hct 28.0 L 27.9 L (37.0-47.0) % Plt Count 353 328 (160-400) X10*3/uL BMP 08/18/21 08/19/21 15:46 06:40 Sodium 130 L 135 Potassium 3.2 L D 3.8 Chloride 98 106 Carbon Dioxide 23 21 L BUN 41 H 34 H Creatinine 1.42 H 1.09 Calcium 9.4 D 8.9 Cardiac Enzymes 08/18/21 Range/Units 15:46 Total Creatine Kinase 83 (26-140) U/L Liver Function 08/18/21 Range/Units 15:46 Total Bilirubin 0.9 (0.0-1.0) mg/dL AST 65 H (5-31) U/L ALT 43 H (0-31) U/L Alkaline Phosphatase 28 L (39-117) U/L Albumin 3.3 L (3.5-5.0) g/dL Urine 08/18/21 Range/Units 15:57 Urine Color YELLOW Urine Appearance CLEAR Urine pH 6.0 (5.0-8.0) Ur Specific [place] <= 1.005 (1.005-1.025) Urine Protein NEG (NEG-TRACE) MG/DL Urine Glucose (UA) NEG (NEG) MG/DL Head CT revealed moderately to severe cerebral atrophy. Assessment and Plan (1) Dementia in Alzheimer's disease with delirium: Status: Acute Probably dementia related encephalopathy with the hearing impairment. If she is not taking any did medicine for dementia already, I would recommend starting her on memantine 5 mg twice a day sertraline 25 mg in the morning for anxiety. She might also benefit from small dose of Seroquel. Procedures Date of Service Date of Service: 08/19/21
[2021-08-19] MEDS: Folic Acid 1 MG TABLET PO (12:09)
--- NOTE | 2021-08-19 14:03 | PM.CNCAR ---
History of Present Illness History of Present Illness Date of Service: 08/19/21 Requesting physician: Asad Austin Chief complaint: troponin elevation Narrative: I was consulted to see Sonya in cardiology consultation today for troponin elevation. History was mostly obtained from the chart as patient is a poor historian. He is confused and not able to provide much history. I discuss, although she is verbal in response to questions as to why she is in the hospital she was not able to communicate any particular reason. She says she was very weak and then decided to come to the hospital for it was too late. There is no clear reported episodes of chest pain or shortness of breath. As per the ED chart patient was very confused and concern was raised by the son and therefore she was brought to the hospital. A troponin was drawn and this was elevated. However repeat troponin has been flat. EKG shows diffuse T-wave inversion in the anterolateral leads. Again patient currently denies any chest pain or any chest pain the past. She denies any prior cardiac issues. On admission she was noted to be dehydrated and low blood pressure, subsequently with IV fluids her blood pressure is improved and her creatinine is improved consistent with acute kidney injury. Review of Systems Review of Systems: Yes Unobtainable due to mental status Neurologic: Reports confusion Psychiatric: Psychiatric: Reports confusion PMFSH Past Medical History Medical History CKD (chronic kidney disease), stage II DVT (deep venous thrombosis) Fatty liver HLD (hyperlipidemia) HTN (hypertension) Social History Social History Alcohol intake: never Patient Tobacco Use Status: Never used Tobacco Use of substances other than those prescribed or required for medical reasons: No Advance Directives: No Advance Directives Information Provided: Yes service: No Current occupational status: retired Meds Allergies Allergy/AdvReac Type Severity Reaction Status Date / Time No Known Allergies Allergy Unverified 03/18/20 15:04 [No Known Allergies*] Active Medications: Current Medications Acetaminophen (Acetaminophen 325 Mg Tablet) 650 mg PO Q6H PRN PRN Reason: Pain, Mild (Pain Scale 1-3) Calcium Carbonate (Calcium Carbonate 750 Mg Tab.Chew) 750 mg PO DAILY GERARD Last Admin: 08/19/21 09:37 Dose: 750 mg Documented by: Cinacalcet (Cinacalcet Hcl 30 Mg Tablet) 60 mg PO DAILY [facility] Last Admin: 08/19/21 09:32 Dose: 60 mg Documented by: Clonidine HCl (Clonidine Hcl 0.2 Mg Tablet) 0.2 mg PO BID [facility]; Protocol Last Admin: 08/19/21 09:36 Dose: 0.2 mg Documented by: Fenofibrate (Fenofibrate,Micronized 134 Mg Capsule) 134 mg PO DAILY [facility] Last Admin: 08/19/21 09:32 Dose: 134 mg Documented by: Folic Acid (Folic Acid 1 Mg Tablet) 1 mg PO DAILY [facility] Last Admin: 08/19/21 12:09 Dose: 1 mg Documented by: Heparin Sodium (Porcine) (Heparin Sodium,Porcine 5,000 Unit/Ml Vial) 5,000 unit SUBCUT Q12H [facility] Last Admin: 08/19/21 12:00 Dose: 5,000 unit Documented by: Melatonin (Melatonin 3 Mg Tablet) 6 mg PO BEDTIME PRN PRN Reason: Insomnia Omeprazole (Omeprazole 20 Mg Capsule.) 20 mg PO DAILY@0630 [facility] Last Admin: 08/19/21 09:37 Dose: 20 mg Documented by: Pharmacy Consult (Consult Rx Perform Med Rec) 1 each MISCELLANE ONCE PRN PRN Reason: Consult order Senna (Sennosides 8.6 Mg Tablet) 17.2 mg PO BEDTIME PRN PRN Reason: Constipation Sodium Chloride (0.9 % Sodium Chloride Flush 3 Ml Syringe) 3 ml IVFLUSH QSHIFT [facility] Last Admin: 08/19/21 09:38 Dose: 3 ml Documented by: Tizanidine HCl (Tizanidine Hcl 4 Mg Tablet) 4 mg PO Q6H PRN PRN Reason: Muscle Spasm Vitamin D (Cholecalciferol (Vitamin D3) 25 Mcg Tablet) 50 mcg PO DAILY [facility] Last Admin: 08/19/21 09:36 Dose: 50 mcg Documented by: Home Medications Medication Instructions Recorded Confirmed Last Taken Type amlodipine 5 mg tablet 1 tab PO BID 08/18/21 08/18/21 Unknown History calcium carbonate 600 mg calcium 600 mg PO DAILY 08/18/21 08/18/21 Unknown History (1,500 mg) tablet cholecalciferol (vitamin D3) 50 50 mcg PO DAILY 08/18/21 08/18/21 Unknown History mcg (2,000 unit) tablet cinacalcet 60 mg tablet 1 tab PO DAILY 08/18/21 08/18/21 Unknown History clonidine HCl 0.1 mg tablet 0.2 mg PO BID 08/18/21 08/18/21 Unknown History fenofibrate nanocrystallized 145 1 tab PO DAILY 08/18/21 08/18/21 Unknown History mg tablet irbesartan 300 mg tablet 1 tab PO DAILY 08/18/21 08/18/21 Unknown History omeprazole 20 mg capsule,delayed 20 mg PO DAILY 08/18/21 08/18/21 Unknown History release tizanidine 4 mg tablet 4 mg PO Q6H PRN 08/18/21 08/18/21 Unknown History Physical Exam Vital Signs: Vital Signs: Last Vital Signs Temp 98.1 F 08/19/21 11:31 Pulse 73 08/19/21 11:31 Resp 12 08/19/21 11:31 BP 120/57 L 08/19/21 11:31 Pulse Ox 100 08/19/21 11:31 BMI result Body Mass Index 23.8 Const: General: cooperative, comfortable, no acute distress, alert, awake and confusion Nutritional Appearance: average body habitus Orientation/consciousness: confusion HENMT: Head: Yes normocephalic and Yes atraumatic Neck: Neck: Yes trachea midline, Yes supple and Yes no JVD Resp: Effort & Inspection: normal respiratory effort Auscultation: clear to auscultation bilaterally Cardio: Jugular venous distension: no JVD Palpation: normal PMI Rate: regular rate Rhythm: regular rhythm Heart sounds: S1 normal heart sound present, S2 normal heart sound present, no click, no gallops and no murmurs GI: Auscultation: normal bowel sounds Skin: General skin exam: no rashes or lesions noted Neuro: General: no focal motor deficits and confusion Extrem: General: Yes no clubbing, cyanosis or edema Objective Labs and Meds Result diagrams: 08/19/21 06:40 08/19/21 06:40 Lab results: Laboratory Results - last 24 hr 08/18/21 08/18/21 08/18/21 15:46 15:46 15:46 WBC 6.1 RBC 3.30 L Hgb 9.5 L Hct 28.0 L MCV 84.8 MCH 28.8 MCHC 33.9 RDW 13.2 Plt Count 353 MPV 10.1 Immature Gran % (Auto) 0.7 H Neut % (Auto) 81.8 H Lymph % (Auto) 11.2 L Simpson % (Auto) 5.8 Eos % (Auto) 0.3 Baso % (Auto) 0.2 Lymph # (Auto) 0.7 L Simpson # (Auto) 0.4 Eos # (Auto) 0.0 Baso # (Auto) 0.0 Abs Immat Gran (auto) 0.04 H Absolute Neuts (auto) 5.0 Absolute Nucleated RBC 0.000 Nucleated RBC % (auto) 0.0 Sodium 130 L Potassium 3.2 L D Chloride 98 Carbon Dioxide 23 Anion Gap 12 BUN 41 H Creatinine 1.42 H Estim Creat Clear Calc 24.2 Estimated GFR 36 Random Glucose 109 Calcium 9.4 D Magnesium 1.6 Total Bilirubin 0.9 AST 65 H ALT 43 H Alkaline Phosphatase 28 L Ammonia 16 Total Creatine Kinase 83 Troponin I High Sens C-Reactive Protein 1.31 H B-Natriuretic Peptide Total Protein 5.5 L Albumin 3.3 L Vitamin B12 Folate TSH 1.41 Urine Color Urine Appearance Urine pH Ur Specific [place] Urine Protein Urine Glucose (UA) Urine Ketones Urine Blood Urine Nitrite Ur Leukocyte Esterase Urine RBC Urine WBC Ur Squamous Epith Cells Urine Bacteria Urine Opiates Screen Urine Fentanyl Screen Ur Barbiturates Screen Ur Phencyclidine Scrn Ur Amphetamines Screen U Benzodiazepines Scrn Urine Cocaine Screen U Marijuana (THC) Screen T.pallidum Ab (EIA) COVID-19 (JACQUELINE) COVID-19 Clin Com 08/18/21 08/18/21 08/18/21 15:46 15:57 15:57 WBC RBC Hgb Hct MCV MCH MCHC RDW Plt Count MPV Immature Gran % (Auto) Neut % (Auto) Lymph % (Auto) Simpson % (Auto) Eos % (Auto) Baso % (Auto) Lymph # (Auto) Simpson # (Auto) Eos # (Auto) Baso # (Auto) Abs Immat Gran (auto) Absolute Neuts (auto) Absolute Nucleated RBC Nucleated RBC % (auto) Sodium Potassium Chloride Carbon Dioxide Anion Gap BUN Creatinine Estim Creat Clear Calc Estimated GFR Random Glucose Calcium Magnesium Total Bilirubin AST ALT Alkaline Phosphatase Ammonia Total Creatine Kinase Troponin I High Sens 321.4 H* C-Reactive Protein B-Natriuretic Peptide Total Protein Albumin Vitamin B12 Folate TSH Urine Color YELLOW Urine Appearance CLEAR Urine pH 6.0 Ur Specific [place] <= 1.005 Urine Protein NEG Urine Glucose (UA) NEG Urine Ketones NEG Urine Blood NEG Urine Nitrite NEG Ur Leukocyte Esterase TRACE H Urine RBC 0 Urine WBC 1-4 Ur Squamous Epith Cells 2+ Urine Bacteria 1+ Urine Opiates Screen Not Detected Urine Fentanyl Screen Not Detected Ur Barbiturates Screen Not Detected Ur Phencyclidine Scrn Not Detected Ur Amphetamines Screen Not Detected U Benzodiazepines Scrn Not Detected Urine Cocaine Screen Not Detected U Marijuana (THC) Screen Not Detected T.pallidum Ab (EIA) COVID-19 (JACQUELINE) COVID-19 Clin Com 08/18/21 08/18/21 08/18/21 15:59 19:14 20:15 WBC RBC Hgb Hct MCV MCH MCHC RDW Plt Count MPV Immature Gran % (Auto) Neut % (Auto) Lymph % (Auto) Simpson % (Auto) Eos % (Auto) Baso % (Auto) Lymph # (Auto) Simpson # (Auto) Eos # (Auto) Baso # (Auto) Abs Immat Gran (auto) Absolute Neuts (auto) Absolute Nucleated RBC Nucleated RBC % (auto) Sodium Potassium Chloride Carbon Dioxide Anion Gap BUN Creatinine Estim Creat Clear Calc Estimated GFR Random Glucose Calcium Magnesium Total Bilirubin AST ALT Alkaline Phosphatase Ammonia Total Creatine Kinase Troponin I High Sens 307.4 H* C-Reactive Protein B-Natriuretic Peptide 872 H 865 H Total Protein Albumin Vitamin B12 Folate TSH Urine Color Urine Appearance Urine pH Ur Specific [place] Urine Protein Urine Glucose (UA) Urine Ketones Urine Blood Urine Nitrite Ur Leukocyte Esterase Urine RBC Urine WBC Ur Squamous Epith Cells Urine Bacteria Urine Opiates Screen Urine Fentanyl Screen Ur Barbiturates Screen Ur Phencyclidine Scrn Ur Amphetamines Screen U Benzodiazepines Scrn Urine Cocaine Screen U Marijuana (THC) Screen T.pallidum Ab (EIA) COVID-19 (JACQUELINE) Negative COVID-19 Clin Com See Note 08/18/21 08/18/21 08/18/21 23:07 23:07 23:07 WBC RBC Hgb Hct MCV MCH MCHC RDW Plt Count MPV Immature Gran % (Auto) Neut % (Auto) Lymph % (Auto) Simpson % (Auto) Eos % (Auto) Baso % (Auto) Lymph # (Auto) Simpson # (Auto) Eos # (Auto) Baso # (Auto) Abs Immat Gran (auto) Absolute Neuts (auto) Absolute Nucleated RBC Nucleated RBC % (auto) Sodium Potassium Chloride Carbon Dioxide Anion Gap BUN Creatinine Estim Creat Clear Calc Estimated GFR Random Glucose Calcium Magnesium Total Bilirubin AST ALT Alkaline Phosphatase Ammonia Total Creatine Kinase Troponin I High Sens C-Reactive Protein B-Natriuretic Peptide Total Protein Albumin Vitamin B12 649 Folate 3.2 L TSH 2.15 Urine Color Urine Appearance Urine pH Ur Specific [place] Urine Protein Urine Glucose (UA) Urine Ketones Urine Blood Urine Nitrite Ur Leukocyte Esterase Urine RBC Urine WBC Ur Squamous Epith Cells Urine Bacteria Urine Opiates Screen Urine Fentanyl Screen Ur Barbiturates Screen Ur Phencyclidine Scrn Ur Amphetamines Screen U Benzodiazepines Scrn Urine Cocaine Screen U Marijuana (THC) Screen T.pallidum Ab (EIA) Nonreactive COVID-19 (JACQUELINE) COVID-19 Clin Com 08/19/21 08/19/21 06:40 06:40 WBC 4.6 L RBC 3.27 L Hgb 9.5 L Hct 27.9 L MCV 85.3 MCH 29.1 MCHC 34.1 RDW 13.5 Plt Count 328 MPV 9.7 Immature Gran % (Auto) 0.6 H Neut % (Auto) 81.9 H Lymph % (Auto) 9.9 L Simpson % (Auto) 6.5 Eos % (Auto) 1.1 Baso % (Auto) 0.0 Lymph # (Auto) 0.5 L Simpson # (Auto) 0.3 Eos # (Auto) 0.1 Baso # (Auto) 0.0 Abs Immat Gran (auto) 0.03 Absolute Neuts (auto) 3.8 Absolute Nucleated RBC 0.000 Nucleated RBC % (auto) 0.0 Sodium 135 Potassium 3.8 Chloride 106 Carbon Dioxide 21 L Anion Gap 12 BUN 34 H Creatinine 1.09 Estim Creat Clear Calc 31.5 Estimated GFR 48 Random Glucose 89 Calcium 8.9 Magnesium Total Bilirubin AST ALT Alkaline Phosphatase Ammonia Total Creatine Kinase Troponin I High Sens C-Reactive Protein B-Natriuretic Peptide Total Protein Albumin Vitamin B12 Folate TSH Urine Color Urine Appearance Urine pH Ur Specific [place] Urine Protein Urine Glucose (UA) Urine Ketones Urine Blood Urine Nitrite Ur Leukocyte Esterase Urine RBC Urine WBC Ur Squamous Epith Cells Urine Bacteria Urine Opiates Screen Urine Fentanyl Screen Ur Barbiturates Screen Ur Phencyclidine Scrn Ur Amphetamines Screen U Benzodiazepines Scrn Urine Cocaine Screen U Marijuana (THC) Screen T.pallidum Ab (EIA) COVID-19 (JACQUELINE) COVID-19 Clin Com Imaging Radiologist's impression: Impressions Chest X-Ray 08/18/21 18:50 IMPRESSION: Cardiomegaly. Clear lungs. Chest CTA 08/18/21 19:24 IMPRESSION: No evidence of pulmonary emboli. No acute findings in the chest. Mild dependent atelectasis. VTE: negative Head CT 08/18/21 19:24 IMPRESSION: No acute intracranial pathology. Assessment and Plan (1) Elevated troponin: Status: Acute Elevated troponin this elderly woman who is present with altered mental status with no obvious cardiac symptoms of myocardial ischemia. EKG showing T-wave inversions which is nonspecific. Troponins are flat. This is not suggestive of acute coronary syndrome or acute myocardial infarction or even secondary myocardial infarction. Her troponin elevation could be due to presence of underlying coronary disease with acute medical illness including acute kidney injury and/ low blood pressure. Nonspecific although it does portend two future cardiovascular events. No specific workup is indicated. Would consider low-dose aspirin therapy as well as statin therapy. Blood pressure is currently optimally controlled. Continue to monitor closely. Will sign of the case at this point time. No further workup indicated at this point in time besides echocardiogram Procedures Date of Service Date of Service: 08/19/21
--- NOTE | 2021-08-19 14:53 | PC.NURSE ---
pt's son at bedside, updated on plan of care. will continue to monitor.
[2021-08-19] MEDS: Melatonin 3 MG TABLET 6 MG PO (22:57)
--- NOTE | 2021-08-19 23:03 | PC.NURSE ---
Assumed care of pt from main ED. Pt ambulatory from wc to bed, attached to desk monitor, vitals as charted. Pt cooperative but argumentative, when explained that she needs to get in bed states I under- fucking- stand.
[2021-08-20] MEDS: TiZANidine HCL 4 MG TABLET PO ×2 (02:46→09:40)
[2021-08-20 05:50] VITALS: BP 106/58; PULSE 51; RESP 16; O2SAT 98
--- NOTE | 2021-08-20 06:19 | PC.NURSE ---
KATH Estrada attempted to wake pt for vitals, pt sleeping and reluctant to interact. Natalie attempted to allow pt to sleep through checking vitals, pt then became irate and yelled tell me what you need to do before you do it! Pt subsequently back to sleep. On arrival of cytology technologist, Natalie attempted to wake pt so as to not cause additional frustration and surprise. Pt yelling don't ever wake me up like that again! This RN attempted to educate pt on hospital protocol and on importance of labs, pt not receptive, stated no one wakes me up like that in my house, no one! Natalie STOCKTON attempted to explain that this is not her home but is the hospital, pt stated I don't give a flying fuck! I'm paying the bills here! Pt then stated approximately 8 times I am so serious, don't EVER wake me up like that again. Will attempt to more effectively cluster care when possible
[2021-08-20 06:50] LABS: Hematocrit 27.9 % (37.0-47.0); Hemoglobin 9.3 g/dl (12.0-16.0); Mean Corpuscular HGB Conc 33.3 g/dl (31.0-35.0); Mean Corpuscular Hemoglobin 28.9 pg (27.0-33.0); Mean Corpuscular Volume 86.6 fL (80.0-98.0); Mean Platelet Volume 9.9 fL (9.4-12.3); Platelet Count 368 X10*3/uL (160-400); Red Blood Count 3.22 X10*6/uL (4.20-5.50); Red Cell Distribution Width 13.7 % (11.0-16.0); White Blood Count 5.4 X10*3/uL (4.8-10.8)
[2021-08-20 06:52] LABS: Ammonia 20 umol/L (13-55)
[2021-08-20 06:55] LABS: Prothrombin Time 11.9 SEC (9.9-13.0)
[2021-08-20 07:02] LABS: Anion Gap 10 (12-20); Blood Urea Nitrogen 27 mg/dL (9-16); Carbon Dioxide 23 mmol/L (22-29); Chloride 105 mmol/L (96-108); Creatinine Clr Calc Pharmacy 33.1; Estimated Glomerular Filt Rate 51; Glucose Fasting 83 mg/dL (60-99); Potassium 4.1 mmol/L (3.3-5.1); Sodium 134 mmol/L (135-145)
[2021-08-20 07:09] LABS: Troponin-I High Sensitivity 245.9 ng/L (<3.5-17.0)
[2021-08-20] MEDS: Folic Acid 1 MG TABLET PO (09:40)
[2021-08-20] MEDS: Fenofibrate,Micronized 134 MG CAPSULE PO (09:40)
[2021-08-20] MEDS: Calcium Carbonate 750 MG TAB.CHEW PO (09:40)
[2021-08-20] MEDS: Cholecalciferol (Vitamin D3) 25 MCG TABLET 50 MCG PO (09:40)
[2021-08-20] MEDS: 0.9 % Sodium Chloride Flush 3 ML SYRINGE IVFLUSH (09:40)
[2021-08-20] MEDS: Cinacalcet HCl 30 MG TABLET 60 MG PO (09:41)
[2021-08-20] MEDS: Aspirin 81 MG TAB.CHEW PO (09:41)
[2021-08-20] MEDS: cloNIDine HCL 0.2 MG TABLET PO (09:41)
--- NOTE | 2021-08-20 10:55 | PC.NURSE ---
Pt Alert, oriented to person only. Able to reorient to location but pt quickly forgets, pt asking to speak to her grandmother, tried to explain to Pt she is 80 years old herself and best family contact would be her son. Pt confused and gets aggitated, pt does ambulate with an assist of 1, bed alarm on. Call limon within place. Pt denies any pain, NSR on monitor. Medicated as per [facility] orders with exception of heparin as pt refused shots . Awaiting further orders. Will continue to monitor.
[2021-08-20 10:58] VITALS: BP 130/60; PULSE 72; RESP 18; TEMP 36.4; O2SAT 98
--- NOTE | 2021-08-20 11:38 | MHC.CM.PN ---
MESSAGE LEFT FOR SONJEAN-PAUL AT [phone] REQUEST FOR CALL BACK. THIS COMMUNICATION ENGINEER LOOKING TO SET UP TRANSPORT FOR PATIENT TO RETURN HOME CONTACT NUMBER FOR THIS COMMUNICATION ENGINEER LEFT ON VOICEMAIL
--- NOTE | 2021-08-20 12:30 | P.DS_ITS ---
DS: Providers Provider Date of Service: 08/20/21 Date of admission: 08/18/21 22:16 Primary care physician: Unknown Physician Consults: 08/18/21 22:16 Consult to Cardiology Routine Consulting Provider: Daniel Alves Reason for consultation: Elevated troponins 08/18/21 22:27 Consult to Neurology Routine Consulting Provider: [facility] Reason for consultation: Unsteady gait; altered mental status DS: Diagnosis Discharge Diagnosis (1) Elevated troponin: Status: Acute DS: Summary Hospital Course Hospital Course: Patient was admitted for weakness due to hypotension and acute kidney injury due to dehydration. She was given IV fluids and this resolved. Patient was noted to have Alzheimer's dementia with acute delirium. She was seen by neurology recommended starting memantine, Zoloft, Seroquel. She is also noted to have significant hearing loss and would benefit from audiology follow-up. Patient was noted to have elevated troponins without chest pain. She was seen by Cardiology recommended echocardiogram which revealed basilar hypokinesis. Patient's troponins were flat. No evidence of acute coronary syndrome. Likely sign of underlying CAD. Patient was started on aspirin and statin. Patient's folate was noted to be 3.2 and started on replacement. Patient will be discharged home with her son. Time Spent with Patient Time attestation: Total time spent providing and/or coordinating discharge services: Discharge coordination time: Greater than 30 minutes Quality: Stroke Does the patient have a stroke diagnosis?: No Physical Exam Vital Signs: Vital Signs: Last Vital Signs Temp 97.5 F 08/20/21 10:58 Pulse 72 08/20/21 10:58 Resp 18 08/20/21 10:58 BP 130/60 08/20/21 10:58 Pulse Ox 98 08/20/21 10:58 BMI result Body Mass Index 23.8 Const Other: General: AO X 3, no acute distress Resp:? CTA bilateral, no accessory muscles used CVS: S1,S2,RRR GI: soft, non tender, non distended Neuro:? motor grossly intact, alert Psych: appropriate affect, impaired insight? DS: Data Data Completed and Pending Labs on day of discharge: Laboratory Results - last 24 hr 08/20/21 08/20/21 08/20/21 06:32 06:32 06:32 WBC 5.4 RBC 3.22 L Hgb 9.3 L Hct 27.9 L MCV 86.6 MCH 28.9 MCHC 33.3 RDW 13.7 Plt Count 368 MPV 9.9 Absolute Nucleated RBC 0.000 Nucleated RBC % (auto) 0.0 PT 11.9 INR 1.0 Sodium 134 L Potassium 4.1 Chloride 105 Carbon Dioxide 23 Anion Gap 10 L BUN 27 H Creatinine 1.04 Estim Creat Clear Calc 33.1 Estimated GFR 51 Fasting Glucose 83 Calcium 9.0 Ammonia Troponin I High Sens 08/20/21 08/20/21 06:32 06:32 WBC RBC Hgb Hct MCV MCH MCHC RDW Plt Count MPV Absolute Nucleated RBC Nucleated RBC % (auto) PT INR Sodium Potassium Chloride Carbon Dioxide Anion Gap BUN Creatinine Estim Creat Clear Calc Estimated GFR Fasting Glucose Calcium Ammonia 20 Troponin I High Sens 245.9 H* Discharge Plan Discharge Patient Disposition: Home, Self-Care Discharge Diagnosis: confusion Referrals: Physician,Unknown J [Primary Care Provider] - 1 Week Discharge Medications: New atorvastatin 80 mg Tablet 80 mg PO BEDTIME Qty: 30 0RF aspirin 81 mg Tablet,Chewable 81 mg PO DAILY Qty: 30 0RF folic acid 1 mg Tablet 1 mg PO DAILY Qty: 30 0RF memantine 5 mg tablet 5 mg PO BID Qty: 60 0RF sertraline [Zoloft] 25 mg tablet 25 mg PO DAILY Qty: 30 0RF quetiapine [Seroquel] 25 mg tablet 25 mg PO BEDTIME Qty: 30 0RF Continued clonidine HCl 0.1 mg tablet 0.2 mg PO BID 0RF tizanidine 4 mg tablet 4 mg PO Q6H PRN (Reason: Muscle Spasm) 0RF cinacalcet 60 mg tablet 1 tab PO DAILY 0RF fenofibrate nanocrystallized 145 mg tablet 1 tab PO DAILY 0RF calcium carbonate 600 mg calcium (1,500 mg) Tablet 600 mg PO DAILY 0RF omeprazole 20 mg Capsule,Delayed Release(Dr/Ec) 20 mg PO DAILY 0RF cholecalciferol (vitamin D3) 50 mcg (2,000 unit) Tablet 50 mcg PO DAILY 0RF Discontinued amlodipine 5 mg tablet 1 tab PO BID 0RF irbesartan 300 mg tablet 1 tab PO DAILY 0RF Discharge Orders: Discharge Order (Routine); Ordered 08/20/21 Ordered By: Nathaniel Mak Diet: advance to usual diet Activity on Discharge: As tolerated Stand Alone Forms: Patient Portal Discharge page Care Plan Goals: home safety Health Concerns: coronary disease, dementia Plan of Treatment: start aspirin and lipitor for heart disease. start memantin to slow progression of dementia, start zoloft for anxiety and seroquel at bedtime to help with sundowning. pursue audiology testing as lack of hearing device will accelerate progression of dementia. Assessment: see above
--- NOTE | 2021-08-20 12:39 | PC.NURSE ---
Pt's son came for visit, upon patient seeing son she said it was time to leave. Pt remains confused, but still states she is going home. Dr. Mak at bedside, case packer Katie present as well. Per son, Jerald he is ok with her going home with services. Meggan to arrange for Elder care, I voiced my concern that the patient would refuse their care upon arrival but Meggan states she cannot refuse as it is like protective care. Pt left prior to DC paperwork in a wheelchair with her son and Meggan from case management.
--- NOTE | 2021-08-20 12:44 | MHC.CM.PN ---
Addendum entered by Katie Cintron 08/20/21 12:50: FACE SHEET AND HCP FAXED TO [facility] AT [phone] Original Note: SON JEAN-PAUL ARRIVED AND IS TAKING PATIENT HOME. PATIENT REFUSES TO STAY SHE IS MADE AWARE THAT [facility] WILL BE CALLED TO CHECK IN ON HER. SON MADE AWARE OF ABILITY TO START A LTC APPLICATION AND GIVES PERMISSION FOR THIS [employer]ILDER TO HAVE [facility] CALL TO START THE PROCESS. HCP IS ON FILE AND VERIFIED. PATIENT IS DC SHE STATES THAT SHE WILL CONTACT HER PCP ON SUNDAY
[2021-08-22 08:18] LABS: HBS Num1 0.29 mIU/mL (0-7.99); HBc Num1 0.05 S/CO (0.00-0.79); Hepatitis B Core Antibody Nonreactive (Nonreactive); ~HepC Num1 0.05 S/CO (0.00-0.79); ~Hepatitis B Surface Antibody NONREACTIVE (Nonreactive); ~Hepatitis C Antibody Nonreactive (Nonreactive)
[2021-08-22 08:25] LABS: Hepatitis B Surface Antigen Negative (Negative)
== END 2021-08-20 12:56 | disposition home or self-care (01) | DRG 315 ==
LOC: HO.ED 22:06 → HO.EDOVER 23:14
PROVIDERS: Physician Assistant; Admitting Provider Hospitalist; Emergency Provider Emergency Medicine Emergency Medical Services; PCP Internal Medicine; Visit Provider Internal Medicine
DX: I95.9 Hypotension, unspecified (principal); N17.9 Acute kidney failure, unspecified; F05 Delirium due to known physiological condition; I12.9 Hypertensive chronic kidney disease with stage 1 through stage 4 chronic kidney disease, or unspecified chronic kidney disease; E78.5 Hyperlipidemia, unspecified; G30.9 Alzheimer's disease, unspecified; F02.80 Dementia in other diseases classified elsewhere, unspecified severity, without behavioral disturbance, psychotic disturbance, mood disturbance, and anxiety; I25.10 Atherosclerotic heart disease of native coronary artery without angina pectoris; K76.0 Fatty (change of) liver, not elsewhere classified; N18.30 Chronic kidney disease, stage 3 unspecified; E86.0 Dehydration; Z20.822 Contact with and (suspected) exposure to COVID-19; Z79.82 Long term (current) use of aspirin; Z79.899 Other long term (current) drug therapy
CPT/HCPCS: 36415; 70450; 71046; 71275; 80048; 80053; 80307; 81001; 82140; 82550; 82607; 82746; 83735; 83880; 84443; 84484; 85025; 85027; 85610; 86140; 86704; 86706; 86780; 86803; 87086; 87088; 87186; 87340; 87635; 93005; 93306; 96360; 96372; 99285; J2060; Q9967

== ENCOUNTER 2021-08-21 05:11 | Emergency (ER) | payer MEDICARE, OTHER, SELFPAY ==
--- NOTE | ~2021-08-21 | XR_ITS ---
EXAMINATION: XR CHEST CLINICAL INFORMATION: Cough COMPARISON: 08/18/2021 TECHNIQUE: Frontal view of the chest was obtained. FINDINGS: No significant abnormality is noted involving the heart, lungs, mediastinum, bony thorax or soft tissues. XR/XR chest 1V IMPRESSION: Unremarkable examination.
[2021-08-21 05:16] VITALS: BP 168/84; PULSE 74; RESP 16; O2SAT 100; BMI 18.9
[2021-08-21 05:24] VITALS: BP 134/63; PULSE 81; RESP 18; TEMP 36.6; O2SAT 99
--- NOTE | 2021-08-21 05:32 | ECG_ITS ---
Test Reason : WEAKNESS Blood Pressure : / mmHG Vent. Rate : 069 BPM Atrial Rate : 069 BPM P-R Int : 144 ms QRS Dur : 104 ms QT Int : 382 ms P-R-T Axes : 062 -05 199 degrees QTc Int : 409 ms Normal sinus rhythm [address] & T wave abnormality, consider inferior ischemia ST & T wave abnormality, consider anterolateral ischemia Abnormal ECG When compared with ECG of 18-AUG-2021 18:14, Incomplete right bundle branch block is no longer Present QT has shortened Referred By: Ericka Barba Electronically Signed By:NGOZI JENKINS MD
[2021-08-21 05:46] LABS: COVID-19 Test Negative (Negative)
--- NOTE | 2021-08-21 05:52 | ED_ITS ---
HPI - General Adult General Chief complaint: General Medical Stated complaint: FTT Time Seen by Provider: 08/21/21 05:30 Source: patient and EMS Mode of arrival: EMS History of Present Illness HPI narrative: 80-year-old female who is brought in by EMS after being discharged from this hospital yesterday with diagnosis of Alzheimer's dementia and elevated troponins. Patient was discharged into the care of her son who took the patient home and EMS states that the patient has been calling the multiple times again refuses to open the door. Patient is very pleasant and alert and does not recall calling EMS. Currently, patient denies any discomfort, pain, shortness of breath. Attempts to contact the son have been unsuccessful. Related Data Home Medications Medication Instructions Recorded Confirmed calcium carbonate 600 mg calcium 600 mg PO DAILY 08/18/21 08/18/21 (1,500 mg) tablet cholecalciferol (vitamin D3) 50 50 mcg PO DAILY 08/18/21 08/18/21 mcg (2,000 unit) tablet cinacalcet 60 mg tablet 1 tab PO DAILY 08/18/21 08/18/21 clonidine HCl 0.1 mg tablet 0.2 mg PO BID 08/18/21 08/18/21 fenofibrate nanocrystallized 145 1 tab PO DAILY 08/18/21 08/18/21 mg tablet omeprazole 20 mg capsule,delayed 20 mg PO DAILY 08/18/21 08/18/21 release tizanidine 4 mg tablet 4 mg PO Q6H PRN 08/18/21 08/18/21 Previous Rx's Medication Instructions Recorded aspirin 81 mg chewable tablet 81 mg PO DAILY #30 tab 08/20/21 atorvastatin 80 mg tablet 80 mg PO BEDTIME #30 tab 08/20/21 folic acid 1 mg tablet 1 mg PO DAILY #30 tab 08/20/21 memantine 5 mg tablet 5 mg PO BID #60 tab 08/20/21 quetiapine 25 mg tablet (Seroquel) 25 mg PO BEDTIME #30 tab 08/20/21 sertraline 25 mg tablet (Zoloft) 25 mg PO DAILY #30 tab 08/20/21 Allergies Allergy/AdvReac Type Severity Reaction Status Date / Time No Known Allergies Allergy Unverified 03/18/20 15:04 [No Known Allergies*] Review of Systems Review of Systems: Pertinent positives and negatives as stated in HPI and 10 point review of systems is otherwise negative. [facility] Past Medical History Source: nursing notes reviewed Medical History CKD (chronic kidney disease), stage II DVT (deep venous thrombosis) Fatty liver HLD (hyperlipidemia) HTN (hypertension) Social History Social History Alcohol intake: never Patient Tobacco Use Status: Never used Tobacco Advance Directives: No service: No Current occupational status: retired Physical Exam ED Vital Signs: Vital Signs - 24 hr 08/21/21 05:16 08/21/21 05:24 Temperature 97.8 F Pulse Rate 74 81 Respiratory Rate 16 18 Blood Pressure 168/84 H 134/63 Pulse Oximetry 100 99 BMI result Body Mass Index 18.9 VITAL SIGNS: Reviewed. GENERAL: Well developed, well nourished, in no acute distress. HEAD: Normocephalic/atraumatic EYES: PERRLA, EOMI OROPHARYNX: no oral lesions noted, posterior pharynx clear LUNGS: Normal breath sounds. No adventitious sounds or accessory muscle use. SpO2<100> CARDIOVASCULAR: Regular rate and rhythm without noted murmurs, no JVD or lower extremity edema. ABDOMEN: Soft, non-tender, non-distended with bowel sounds. MUSCULOSKELETAL: No tenderness, deformities, or effusions noted on gross inspection. EXTREMITIES: No cyanosis, clubbing or edema. SKIN: Inspection of the skin reveals no rashes NEUROLOGIC: Alert and oriented x 2. Strength and sensation to light touch were grossly intact x 4, cranial nerves 2-12 are grossly intact. PSYCH: Calm and cooperative Course Course Course Narrative: This is a 80-year-old female with history and clinical presentation of Alzheimer's dementia, unable to care for herself and unable to contact family member at this time. We will obtain chest x-ray, EKG, urinalysis as well as a COVID-19 swab and then ask Case Management and Physical therapy to see the patient as she will need placement if the son is unable to care for her. Review of all investigations otherwise negative for acute findings and patient is otherwise medically cleared for further evaluation by case management and physical therapy. Reevaluation(s) Reevaluation #1: Patient placed in physician observation because the patient needed more time for evaluation by case management and physical therapy. At the time observation was started the patient's vital signs were stable, patient is alert and oriented x2, neuro: Nonfocal, CV RRR, lungs clear Time: 06:01 Medical Decision Making Lab Data Labs: Lab Results 08/21/21 08/21/21 Range/Units 05:27 06:20 Urine Color STRAW Urine Appearance CLEAR Urine pH 5.5 (5.0-8.0) Ur Specific [place] <= 1.005 (1.005-1.025) Urine Protein NEG (NEG-TRACE) MG/DL Urine Glucose (UA) NEG (NEG) MG/DL Urine Ketones NEG (NEG) MG/DL Urine Blood NEG (NEG) Urine Nitrite NEG (NEG) Ur Leukocyte Esterase NEG (NEG) Urine RBC 0 (0) /HPF Urine WBC 0-2 (0-4) /HPF Ur Squamous Epith Cells TRACE /LPF Calcium Phosphate Cryst TRACE /LPF Urine Bacteria NONE /LPF COVID-19 (JACQUELINE) Negative (Negative) COVID-19 Clin Com See Note ECG Data Attestation: I personally reviewed and interpreted this ECG as follows: Prior ECG tracings: available for review Interpretation: NSR, HR -69, no STEMI, although there are noted T-wave inversions in the anterol ateral leads this is unchanged from comparison, ME/QRS/QTC are within normal limits. Discharge Plan Discharge Clinical Impression: Alzheimer's dementia, CAD (coronary artery disease) Patient Disposition: Still a Patient Prescriptions: No Action clonidine HCl 0.1 mg tablet 0.2 mg PO BID 0RF tizanidine 4 mg tablet 4 mg PO Q6H PRN (Reason: Muscle Spasm) 0RF cinacalcet 60 mg tablet 1 tab PO DAILY 0RF fenofibrate nanocrystallized 145 mg tablet 1 tab PO DAILY 0RF calcium carbonate 600 mg calcium (1,500 mg) Tablet 600 mg PO DAILY 0RF omeprazole 20 mg Capsule,Delayed Release(Dr/Ec) 20 mg PO DAILY 0RF cholecalciferol (vitamin D3) 50 mcg (2,000 unit) Tablet 50 mcg PO DAILY 0RF atorvastatin 80 mg Tablet 80 mg PO BEDTIME Qty: 30 0RF aspirin 81 mg Tablet,Chewable 81 mg PO DAILY Qty: 30 0RF folic acid 1 mg Tablet 1 mg PO DAILY Qty: 30 0RF memantine 5 mg tablet 5 mg PO BID Qty: 60 0RF sertraline [Zoloft] 25 mg tablet 25 mg PO DAILY Qty: 30 0RF quetiapine [Seroquel] 25 mg tablet 25 mg PO BEDTIME Qty: 30 0RF
[2021-08-21 06:34] LABS: Appearance Urine CLEAR; Color Urine STRAW; Glucose Urine UA NEG (NEG); Leukocyte Esterase Urine NEG (NEG); Nitrite Urine NEG (NEG); PH 5.5 (5.0-8.0); Specific Gravity - Urine <= 1.005 (1.005-1.025); Urine Blood NEG (NEG); Urine Ketones NEG (NEG); Urine Protein NEG (NEG-TRACE)
[2021-08-21 06:47] LABS: Calcium Phosphate Crystals Ur TRACE /LPF; RBC Urine 0 /HPF (0); Squamous Epithelial Cell Urine TRACE /LPF; WBC Urine 0-2 /HPF (0-4)
--- NOTE | 2021-08-21 07:27 | PHA.MEDREC ---
Pharmacy Consult ? Medication Reconciliation Pharmacy has completed the medication reconciliation. Pt discharged yesterday 08/20/21; copied medications from discharge list. Ana Hwang, KarenD
--- NOTE | 2021-08-21 08:58 | PC.NURSE ---
PT UP OOB TO BATHROOM WITH MIN ASSIST OF ONE VIA WC. VOID. RETURNS TO BED. BREAKFAST PROVIDED.
[2021-08-21] MEDS: Memantine HCl 5 MG TABLET PO ×2 (10:00→22:19)
[2021-08-21] MEDS: cloNIDine HCL 0.2 MG TABLET PO ×2 (10:01→22:19)
[2021-08-21] MEDS: Cinacalcet HCl 30 MG TABLET 60 MG PO (10:02)
[2021-08-21] MEDS: Sertraline HCL 25 MG TABLET PO (10:02)
[2021-08-21] MEDS: Folic Acid 1 MG TABLET PO (10:03)
[2021-08-21] MEDS: Fenofibrate 160 MG TABLET PO (10:03)
[2021-08-21] MEDS: Omeprazole 20 MG CAPSULE.DR PO (10:05)
[2021-08-21] MEDS: Aspirin 81 MG TAB.CHEW PO (10:06)
[2021-08-21] MEDS: Calcium Carbonate 750 MG TAB.CHEW PO (10:06)
[2021-08-21] MEDS: Cholecalciferol (Vitamin D3) 25 MCG TABLET 50 MCG PO (10:06)
[2021-08-21 10:10] VITALS: BP 143/65; PULSE 88; RESP 16; TEMP 36.6; O2SAT 99
--- NOTE | 2021-08-21 10:24 | PC.NURSE ---
MEDICATED WITH AM . PT ABLE TO TOLERATE SEVERAL SMALL PILLS AT ONCE WITH WATER, SHE THEN WAS ASSISTED TO THE BATHROOM VIA WC
[2021-08-21 15:59] VITALS: BP 128/64; PULSE 69; RESP 16; TEMP 36.4; O2SAT 99
[2021-08-21 17:40] VITALS: BP 150/73; PULSE 76; RESP 16; TEMP 36.6; O2SAT 98
--- NOTE | 2021-08-21 22:11 | PC.NURSE ---
call placed to [facility] for kristi
[2021-08-21 22:17] VITALS: BP 155/78; PULSE 72
[2021-08-21] MEDS: QUEtiapine Fumarate 25 MG TABLET PO (22:18)
[2021-08-21] MEDS: Atorvastatin Calcium 80 MG TABLET PO (22:18)
[2021-08-22] VITALS (9 sets, daily range): BP systolic 127–152; BP diastolic 56–80; PULSE 63–68; RESP 12–18; TEMP 36.7–37.1; O2SAT 94–99
--- NOTE | 2021-08-22 08:40 | MHC.CM.ED ---
Addendum entered by Sherry Wallis 08/22/21 13:11: Reviewed competency eval with Dr. Herr: inpt noel has been recommended. to refer to psych for placement assistance Addendum entered by Sherry Wallis 08/22/21 12:40: Pt's son Trace here to visit - CM discussed plan of care with pt and Trace. Pt very insistent on wanting to return to home. Denies calling EMS - states her son lives with her. Trace denies this and states they have separete homes. Pt states she drives herself to all appointments to which her son states her license was suspended and her car is not running. Pt angry, swearing and insisting she is going home. Trace informed this CM that pt calls him at all hours because she doesn't remember tasks she completed. She called me the other night because her electricity was off. She didn't know who the power company was or if she paid her bill. Trace states he cannot reside with her as he works time recorder and I need my sanity, I lived with her growing up Pt has 3 other sons who are not involved in pt's life including her HCP, Amari. Trace states he is the only child who maintains a relationship with the pt. Trace states pt does not have funds to privately pay unless she sells her home. Pt overheard yelling, swearing and berating Trace after CM left. to evaluate pt for capacity to make decisions - Trace understands that should she be unable to do so, he would then need to make all healthcare decisions for pt including placement or finding privately hired home help. Trace overwhelmed and requested time to process above information. Pt is extremely hard of hearing and becomes frustrated easily. This CM attempted to use written communication but pt decided that was ineffective. Pt does not have hearing aids. Broad referrals made should pt require placement. Trace will need to be heavily supported as decision maker as it is highly probable that pt will not have decision making capacity. Original Note: Pt presented to ED by EMS after they note she had been calling them since her return to home, not answering the door and seemingly confused. Review of pt's 08/20 d/c notes pt had AMS that did not appear medically mediated. Pt requested to return to home with her son (who is her alternate HCP per record). Son apparently transported pt to home and multiple attempts to contact him have not been successful. HCP on file: #1 agent is listed as son Amari: attempts to contact him via [employer] number unsuccessful: number is out of service. Attempted to meet with pt - she is oriented to person and place and cannot recall how she got here or for what reason. States she lives alone and is independent with all care needs. Required frequent redirection. Review of EMR does not support a medical reason for admission. Previous reports from last admission show a neuro consult in which dementia is suggested along w/initiation of memory medications. CM to discuss with MD: pt may need a formal evaluation for capacity to make decisions. If she is found unable to do so, her HCP can be activated giving her son (s) the ability to make decisions and/or place her in a LTC center. There is an active PT eval order for ? placement as well.
[2021-08-22] MEDS: Fenofibrate 160 MG TABLET PO (10:17)
[2021-08-22] MEDS: Cholecalciferol (Vitamin D3) 25 MCG TABLET 50 MCG PO (10:17)
[2021-08-22] MEDS: Cinacalcet HCl 30 MG TABLET 60 MG PO (10:17)
[2021-08-22] MEDS: Memantine HCl 5 MG TABLET PO ×2 (10:17→22:56)
[2021-08-22] MEDS: Aspirin 81 MG TAB.CHEW PO (10:17)
[2021-08-22] MEDS: Sertraline HCL 25 MG TABLET PO (10:18)
[2021-08-22] MEDS: Folic Acid 1 MG TABLET PO (10:18)
[2021-08-22] MEDS: Omeprazole 20 MG CAPSULE.DR PO (10:18)
[2021-08-22] MEDS: Calcium Carbonate 750 MG TAB.CHEW PO (10:18)
[2021-08-22] MEDS: cloNIDine HCL 0.2 MG TABLET PO ×2 (10:18→22:55)
--- NOTE | 2021-08-22 11:46 | PM.PSYCN ---
History of Present Illness Date of Service: 08/22/2021 Chief Complaint: FTT Reason for Consult: Evaluation for capacity to make medical decisions Requesting physician: Jesusita Herr Discussed with referring provider: Yes (Dr Herr) Sources of Information: patient interviewed Additional Sources of Information: Mr. Jerald Rojas, her son HPI Narrative: Sonya is a 80-year-old woman who was discharged from a medical hospitalization 2 days ago and soon after her discharge she kept calling EMS and then not opening the door. She has been confused and disorganized and is diagnosed with Alzheimer's disease. I was not able to get much pertinent or reliable information from her. Records were reviewed. I also had a chance to speak to her son who states that she has been able to carry on hold routines however having problems with noon formation and activities. She has very little insight into her problems and capacity and abilities right now. Past Psychiatric History: Unknown Review of Systems Review of Systems Cognitive dysfunction Yes all other systems are reviewed and are negative [facility] Medical History CKD (chronic kidney disease), stage II DVT (deep venous thrombosis) Fatty liver HLD (hyperlipidemia) HTN (hypertension) Diagnostics Vital Signs (24Hr): Vital Signs - 24 hr 08/21/21 15:59 08/21/21 17:40 08/21/21 22:17 Temperature 97.6 F 97.8 F Pulse Rate 69 76 72 Respiratory Rate 16 16 Blood Pressure 128/64 150/73 H 155/78 H Pulse Oximetry 99 98 08/22/21 01:21 08/22/21 03:40 08/22/21 04:00 Temperature Pulse Rate 63 Respiratory Rate 16 16 16 Blood Pressure 143/64 H Pulse Oximetry 99 94 94 08/22/21 06:05 Temperature Pulse Rate Respiratory Rate 16 Blood Pressure Pulse Oximetry 95 BMI result Body Mass Index 18.9 Labs Labs: Laboratory Results - last 48 hr 08/21/21 08/21/21 05:27 06:20 Urine Color STRAW Urine Appearance CLEAR Urine pH 5.5 Ur Specific [place] <= 1.005 Urine Protein NEG Urine Glucose (UA) NEG Urine Ketones NEG Urine Blood NEG Urine Nitrite NEG Ur Leukocyte Esterase NEG Urine RBC 0 Urine WBC 0-2 Ur Squamous Epith Cells TRACE Calcium Phosphate Cryst TRACE Urine Bacteria NONE COVID-19 (JACQUELINE) Negative COVID-19 Clin Com See Note Imaging Radiology Impressions: ITS Impressions Chest X-Ray 08/21/21 05:40 IMPRESSION: Unremarkable examination. Mental Status Exam Mental Status Exam Narrative: The patient was seen laying on her bed in the emergency room. She is alert, oriented to place and person. She is very hard of hearing. She is not able to give much pertinent or reliable information and information was primarily from her son. She was not aware of calling EMS repeatedly and not opening the door to them after her recent medical discharge. No signs of psychosis. No delusions. I could not assess her degree of safety and suicidality. Cognitively she is showing signs of impairment. Judgment is impaired Medications Medications Current Medications Aspirin (Aspirin 81 Mg Tab.Chew) 81 mg PO DAILY [facility] Last Admin: 08/22/21 10:17 Dose: 81 mg Documented by: Atorvastatin Calcium (Atorvastatin Calcium 80 Mg Tablet) 80 mg PO BEDTIME [facility] Last Admin: 08/21/21 22:18 Dose: 80 mg Documented by: Calcium Carbonate (Calcium Carbonate 750 Mg Tab.Chew) 750 mg PO DAILY [facility] Last Admin: 08/22/21 10:18 Dose: 750 mg Documented by: Cinacalcet (Cinacalcet Hcl 30 Mg Tablet) 60 mg PO DAILY [facility] Last Admin: 08/22/21 10:17 Dose: 60 mg Documented by: Clonidine HCl (Clonidine Hcl 0.2 Mg Tablet) 0.2 mg PO BID [facility]; Protocol Last Admin: 08/22/21 10:18 Dose: 0.2 mg Documented by: Fenofibrate (Fenofibrate 160 Mg Tablet) 160 mg PO DAILY [facility] Last Admin: 08/22/21 10:17 Dose: 160 mg Documented by: Folic Acid (Folic Acid 1 Mg Tablet) 1 mg PO DAILY [facility] Last Admin: 08/22/21 10:18 Dose: 1 mg Documented by: Memantine (Memantine Hcl 5 Mg Tablet) 5 mg PO BID [facility] Last Admin: 08/22/21 10:17 Dose: 5 mg Documented by: Omeprazole (Omeprazole 20 Mg Capsule.) 20 mg PO DAILY [facility] Last Admin: 08/22/21 10:18 Dose: 20 mg Documented by: Pharmacy Consult (Consult Rx Perform Med Rec) 1 each MISCELLANE ONCE PRN PRN Reason: Consult order Quetiapine Fumarate (Quetiapine Fumarate 25 Mg Tablet) 25 mg PO BEDTIME [facility] Last Admin: 08/21/21 22:18 Dose: 25 mg Documented by: Sertraline HCl (Sertraline Hcl 25 Mg Tablet) 25 mg PO DAILY [facility] Last Admin: 08/22/21 10:18 Dose: 25 mg Documented by: Tizanidine HCl (Tizanidine Hcl 4 Mg Tablet) 4 mg PO Q6H PRN PRN Reason: Muscle Spasm Vitamin D (Cholecalciferol (Vitamin D3) 25 Mcg Tablet) 50 mcg PO DAILY [facility] Last Admin: 08/22/21 10:17 Dose: 50 mcg Documented by: Allergies Allergies Allergy/AdvReac Type Severity Reaction Status Date / Time No Known Allergies Allergy Unverified 03/18/20 15:04 [No Known Allergies*] Assessment & Plan Assessment & Plan (1) Alzheimer's dementia: Status: Acute Code(s): G30.9 - Alzheimer's disease, unspecified; F02.80 - Dementia in other diseases classified elsewhere without behavioral disturbance Plan Based on my evaluation of the patient, talking to her son and reviewing the recent events I do not see her as having the capacity to make informed decision pertaining to her care. She would benefit from a geropsych hospitalization.. I spent minutes with the patient and/or on the patient floor today, greater than?50% of which was spent counseling/coordinating care.
--- NOTE | 2021-08-22 18:06 | PC.NURSE ---
pt cog eval complete, pt eval complete recommendations for snf
[2021-08-22] MEDS: Atorvastatin Calcium 80 MG TABLET PO (22:55)
[2021-08-22] MEDS: QUEtiapine Fumarate 25 MG TABLET PO (22:55)
[2021-08-22] MEDS: TiZANidine HCL 4 MG TABLET PO (23:41)
[2021-08-23] VITALS (7 sets, daily range): BP systolic 108–135; BP diastolic 45–66; PULSE 59–63; RESP 12–18; TEMP 36.7–37.3; O2SAT 95–97
--- NOTE | 2021-08-23 03:18 | PC.NURSE ---
Assumed care of pt at 0315. Pt sleeping, respirations even and non-labored
[2021-08-23] MEDS: Calcium Carbonate 750 MG TAB.CHEW PO (08:43)
[2021-08-23] MEDS: Cholecalciferol (Vitamin D3) 25 MCG TABLET 50 MCG PO (08:43)
[2021-08-23] MEDS: Aspirin 81 MG TAB.CHEW PO (08:43)
[2021-08-23] MEDS: Cinacalcet HCl 30 MG TABLET 60 MG PO (08:43)
[2021-08-23] MEDS: Folic Acid 1 MG TABLET PO (08:43)
[2021-08-23] MEDS: Memantine HCl 5 MG TABLET PO (08:43)
[2021-08-23] MEDS: cloNIDine HCL 0.2 MG TABLET PO ×2 (08:43→21:43)
[2021-08-23] MEDS: Omeprazole 20 MG CAPSULE.DR PO (08:43)
[2021-08-23] MEDS: Fenofibrate 160 MG TABLET PO (08:43)
[2021-08-23] MEDS: Sertraline HCL 25 MG TABLET PO (08:43)
--- NOTE | 2021-08-23 09:56 | MHC.CM.ED ---
Patient remains in ER. Per psych consult, [facility] is recommended. This information and care was transferred to the Care Team. Case Management will be available if disposition changes.
--- NOTE | 2021-08-23 12:53 | MHC.CM.ED ---
Patient remains in ER. HCP has been invoked. Referral broadcasted in [employer] for STR. Patient has received 2 Moderna vaccines. Continue to monitor for d/c needs.
--- NOTE | 2021-08-23 13:35 | MHC.CARE ---
Patient was initially referred for inpatient geriatric psychiatric treatment, her case was reviewed by Geriatric psychiatrist, Dr. Metz who noted that patient does not meet the admission criteria, she has no known mental health issues, does not have behavioral disturbance that can be mitigated by inpatient psychiatric care. Case Management aware of change in recommendation and will take over discharge planning.
--- NOTE | 2021-08-23 15:27 | MHC.CM.ED ---
Addendum entered by Ena Hanks 08/23/21 15:43: Jerald is agreeable to Covid booster. Form completed and faxed with facesheet to [phone]. Charlene from pharmacy aware. Original Note: Patient's son/HCP Jerald in ER. Met with Jerald out side of patient's room. T/W explained HCP was invoked by psych and that patient does not have the capacity to make her own decisions. Also explained patient does not meet inpatient psych level of care. [facility] is able to offer a bed if patient receives booster. Jerald will speak to his mother about receiving booster. Per Jerald, patient would like to stay in [place]. T/W explained there is only 1 [facility]p facility in the [place]. The name of the facility is [facility]. T/W explained a referral was already made there and they don't have a bed to offer. Also explained that most of the facilities will require a booster Covid vaccine prior to being accepted at their facility. Jerald stated he will try to find a facility in [place] himself. T/W explained a discharge plan had to be determined tomorrow morning. So, patient would either need to get the booster and go to [facility] or go home. Jerald verbalized understanding. Continue to monitor for d/c needs.
--- NOTE | 2021-08-23 15:57 | HE.PHANOTE ---
Pharmacy Note - COVID Vaccination Booster Contacted Dr. Teodoro Valles and received authorization to contact [facility] for acquisition of COVID booster vaccination. The current plan is for the Pfizer COVID vaccination to be administered tomorrow prior to discharge. ~Charlene Friedman, PharmD, BCPS, BCCCP Clinical [employer] Worker x [phone]
[2021-08-23] MEDS: TiZANidine HCL 4 MG TABLET PO (18:58)
--- NOTE | 2021-08-23 19:45 | PC.NURSE ---
This RN passing by room, pt requesting to have head of stretcher reclined for improved comfort. This RN assists pt to position of comfort. Pt offers no additional complaints/concerns/requests. Pt alert, oriented to person and is aware she is in a hospital but is disoriented to situation and time. Pt stretcher in lowest locked position, rails raised, call limon within reach.
[2021-08-23] MEDS: QUEtiapine Fumarate 25 MG TABLET PO (21:43)
[2021-08-23] MEDS: Atorvastatin Calcium 80 MG TABLET PO (21:43)
--- NOTE | 2021-08-23 23:20 | PC.NURSE ---
pt asleep in between care, awoken for namenda. pt refuses, states I'm sleeping, I'm not taking anything now.
[2021-08-24 03:04] VITALS: PULSE 67; RESP 18; O2SAT 96
--- NOTE | 2021-08-24 03:05 | PC.NURSE ---
This RN and Alis Tech to bedside to assess pt's incontinence needs. While this RN attempting to assess pt's linens without waking patient, pt wakes up and yells at this RN What the fuck do you think you're doing with my ass at 3 in the morning? This RN explains to pt that this RN was attempting to ensure that pt was clean/dry without waking pt. Pt asks Well what the fuck makes you think that I'm not dry? Pt reassured that she is clean and dry and this RN was not attempting to make any assumptions about patient's continence. Pt states Yeah? Go fuck yourself. Everyone around here is dumber than dumb. You look fucking stupid. This RN attempted to leave the room and patient said I need to pee. Alis and this RN assisted pt to bedside commode. Pt urinated, cleaned, returned to stretcher without incidence. Pt states Write in my chart that I am refusing all further tests and I won't have anyone shoving their fingers up my ass at 3 o'clock in the morning. My doctor will do all of my tests. Alis asks Is there anything else we can do to help you be comfortable while you're here? Pt answers yes, get the fuck out of my fucking face. Stretcher remains in low locked position, rails raised, call limon within reach
[2021-08-24] MEDS: TiZANidine HCL 4 MG TABLET PO ×2 (03:35→10:37)
--- NOTE | 2021-08-24 07:33 | PC.NURSE ---
resumed care of pt from abhay lozoya
[2021-08-24] MEDS: Folic Acid 1 MG TABLET PO (08:19)
[2021-08-24] MEDS: cloNIDine HCL 0.2 MG TABLET PO (08:19)
[2021-08-24] MEDS: Sertraline HCL 25 MG TABLET PO (08:19)
[2021-08-24] MEDS: Cholecalciferol (Vitamin D3) 25 MCG TABLET 50 MCG PO (08:19)
[2021-08-24] MEDS: Omeprazole 20 MG CAPSULE.DR PO (08:19)
[2021-08-24] MEDS: Aspirin 81 MG TAB.CHEW PO (08:19)
[2021-08-24] MEDS: Calcium Carbonate 750 MG TAB.CHEW PO (08:19)
[2021-08-24] MEDS: Fenofibrate 160 MG TABLET PO (08:20)
[2021-08-24] MEDS: Memantine HCl 5 MG TABLET PO (08:20)
[2021-08-24] MEDS: Cinacalcet HCl 30 MG TABLET 60 MG PO (08:20)
--- NOTE | 2021-08-24 11:37 | MHC.CM.ED ---
Patient remains in ER. Will receive Pfizer booster around 12:30pm. Attempted to speak to patient's son/HCP, Jerald via telephone at [phone]. Left message requesting return telephone call to discuss discharge plan. Continue to monitor for d/c needs.
--- NOTE | 2021-08-24 14:49 | MHC.CM.ED ---
Addendum entered by Ena Hanks 08/24/21 14:54: Misa GRIJALVAA is not able to see patient's in [place]. Referral has been sent to [facility]. Original Note: Patient's son, Jerald, on site. Met with Jerald. Jerald will take patient to his home in [address] Adeola EDMONDS aware. Misa GRIJALVAA will be arranged. Jerald will transport patient home. Patient, Jocelynn Marques RN and Adeoal EDMONDS aware. Continue to monitor for d/c needs.
[2021-08-24 14:54] VITALS: BP 120/44; PULSE 68; RESP 18; TEMP 36.5; O2SAT 97
== END 2021-08-24 15:16 | disposition home or self-care (01) ==
PROVIDERS: Emergency Provider Student in an Organized Health Care Education/Training Program; PCP Internal Medicine
DX: G30.9 Alzheimer's disease, unspecified (principal); F02.80 Dementia in other diseases classified elsewhere, unspecified severity, without behavioral disturbance, psychotic disturbance, mood disturbance, and anxiety; I25.10 Atherosclerotic heart disease of native coronary artery without angina pectoris; Z20.822 Contact with and (suspected) exposure to COVID-19; Z79.899 Other long term (current) drug therapy
CPT/HCPCS: 71045; 81001; 87635; 93005; 97161; 99284

== ENCOUNTER 2022-06-20 13:43 | Observation (INO) | payer MEDICARE, OTHER, SELFPAY ==
--- NOTE | ~2022-06-20 | CT_ITS ---
EXAMINATION: CT BRAIN AND CT CERVICAL SPINE WITHOUT CONTRAST. CLINICAL INFORMATION: Fall, headache rule out fracture. COMPARISON: None TECHNIQUE: 5 mm thin and reformatted 2 mm thin sagittal and coronal images of brain were obtained without contrast. Subsequently axial 3 mm thin and reformatted 2 mm thin sagittal coronal images of cervical spine were obtained. [facility] 989 FINDINGS: Brain: There is no acute intra-axial, extra-axial bleed, masses or midline shift. There is no acute infarction evolution. There is no edema. The garcia to white matter differentiation is maintained normal. The lateral ventricles are symmetrical in size and configuration with mild enlargement. The garcia to white matter differentiation is maintained normal. Bone windows reveal no calvarial abnormality. There is no scalp soft tissue abnormality. Bilateral paranasal sinuses and mastoid air cells are well-aerated. Cervical spine: There is mild straightening of cervical lordosis. The the vertebral heights are normal. There is grade 1 anterolisthesis C3 over C4 and C4 over C5. Rest of the vertebral alignment is normal. There is loss of C5-C6 and C6-C7 disc heights with mild posterior spondylosis. The craniovertebral junction and the C1-C2 alignment is normal. There is moderate left C3-C4 and C4-C5 facet joint arthropathy. There is no acute fracture, dislocation or subluxation. The prevertebral and paravertebral soft tissues are normal. The airway is widely patent. The lung apices are clear. CT/CT cervical spine wo IV con IMPRESSION: 1. No acute intracranial process seen. 2. Mild straightening of cervical lordosis with grade 1 anterolisthesis C3 over C4 and C4 over C5. There are degenerative disc changes C5-C6 and C6-C7 disc levels. No visible acute fracture or dislocation seen.
--- NOTE | ~2022-06-20 | XR_ITS ---
EXAMINATION: CHEST AND LEFT HIP WITH PELVIS CLINICAL INFORMATION: Fall, left hip pain. COMPARISON: None TECHNIQUE: Chest one view. Left hip and AP pelvis 3 views FINDINGS: CHEST: Both lungs are fairly well-expanded and clear of acute process. Heart size and pulmonary vascularity is normal. No gross bony abnormality seen. AP PELVIS: There is normal symmetry of bilateral SI joints and hip joints. No visible fracture or dislocation seen. No lytic process LEFT HIP: There is no visible acute fracture, dislocation or subluxation. No soft tissue abnormality seen. XR/XR chest 1V IMPRESSION: Unremarkable chest exam. Unremarkable left hip exam.
--- NOTE | ~2022-06-20 | CT_ITS ---
EXAMINATION: CT BRAIN AND CT CERVICAL SPINE WITHOUT CONTRAST. CLINICAL INFORMATION: Fall, headache rule out fracture. COMPARISON: None TECHNIQUE: 5 mm thin and reformatted 2 mm thin sagittal and coronal images of brain were obtained without contrast. Subsequently axial 3 mm thin and reformatted 2 mm thin sagittal coronal images of cervical spine were obtained. [facility] 989 FINDINGS: Brain: There is no acute intra-axial, extra-axial bleed, masses or midline shift. There is no acute infarction evolution. There is no edema. The garcia to white matter differentiation is maintained normal. The lateral ventricles are symmetrical in size and configuration with mild enlargement. The garcia to white matter differentiation is maintained normal. Bone windows reveal no calvarial abnormality. There is no scalp soft tissue abnormality. Bilateral paranasal sinuses and mastoid air cells are well-aerated. Cervical spine: There is mild straightening of cervical lordosis. The the vertebral heights are normal. There is grade 1 anterolisthesis C3 over C4 and C4 over C5. Rest of the vertebral alignment is normal. There is loss of C5-C6 and C6-C7 disc heights with mild posterior spondylosis. The craniovertebral junction and the C1-C2 alignment is normal. There is moderate left C3-C4 and C4-C5 facet joint arthropathy. There is no acute fracture, dislocation or subluxation. The prevertebral and paravertebral soft tissues are normal. The airway is widely patent. The lung apices are clear. CT/CT head/brain wo IV con IMPRESSION: 1. No acute intracranial process seen. 2. Mild straightening of cervical lordosis with grade 1 anterolisthesis C3 over C4 and C4 over C5. There are degenerative disc changes C5-C6 and C6-C7 disc levels. No visible acute fracture or dislocation seen.
--- NOTE | ~2022-06-20 | XR_ITS ---
EXAMINATION: CHEST AND LEFT HIP WITH PELVIS CLINICAL INFORMATION: Fall, left hip pain. COMPARISON: None TECHNIQUE: Chest one view. Left hip and AP pelvis 3 views FINDINGS: CHEST: Both lungs are fairly well-expanded and clear of acute process. Heart size and pulmonary vascularity is normal. No gross bony abnormality seen. AP PELVIS: There is normal symmetry of bilateral SI joints and hip joints. No visible fracture or dislocation seen. No lytic process LEFT HIP: There is no visible acute fracture, dislocation or subluxation. No soft tissue abnormality seen. XR/XR hip LT w [id number] IMPRESSION: Unremarkable chest exam. Unremarkable left hip exam.
[2022-06-20 13:49] VITALS: BP 190/90; BP 197/93; PULSE 120; PULSE 125; RESP 21; TEMP 36.8; O2SAT 96; O2SAT 97; BMI 21.4
[2022-06-20 14:06] VITALS: BP 202/95; PULSE 114; RESP 15; TEMP 36.8; O2SAT 98
--- NOTE | 2022-06-20 14:20 | PC.NURSE ---
Pt cleaned and changed of urinary incontinence. MD made aware of pts BP, if he would like any intervention, to which he states to just keep an eye on at this time.
--- NOTE | 2022-06-20 14:25 | ECG_ITS ---
Test Reason : cp Blood Pressure : / mmHG Vent. Rate : 104 BPM Atrial Rate : 104 BPM P-R Int : 130 ms QRS Dur : 094 ms QT Int : 340 ms P-R-T Axes : 074 -09 009 degrees QTc Int : 447 ms Sinus tachycardia with Premature supraventricular complexes Minimal voltage criteria for LVH, may be normal variant ( Sokolow-Skaggs ) Borderline ECG When compared with ECG of 21-AUG-2021 05:56, Premature supraventricular complexes are now Present Vent. rate has increased BY [address] no longer depressed in Lateral leads T wave inversion no longer evident in Inferior leads T wave inversion no longer evident in Anterolateral leads Referred By: Waylon Swanson Electronically Signed By:Rehan Larsen
--- NOTE | 2022-06-20 14:27 | ED.FALL ---
HPI - Fall General Chief Complaint: Fall Stated Complaint: FALL,UNWITNESSED,-THINNERS,+COLLAR,?LOC Time Seen by Provider: 06/20/22 13:52 Source: family (Terell Joseph, Son ) and other (ED nurse report) Mode of arrival: EMS Limitations: other (Dementia) History of Present Illness HPI Narrative: 81-year-old female with a history of Alzheimer dementia, chronic kidney disease, DVT, fatty liver, hyperlipidemia, hypertension, hyperparathyroidism status post parathyroidectomy, osteopenia, anxiety, anemia who is brought to emergency department by EMS for unwitnessed fall and unwitnessed down time. The patient's son who was here in the emergency department provided information. He states that he sees is mother every day after work. He states that over the past 3 days the patient has been weak and has been having difficulty walking. She has complained of left-sided hip pain. He states that yesterday he was with her at home at around 16:30 hours. She was weaker than usual and was using a wheelchair. He states that he left during the kitchen in her wheelchair. He tried to call her this afternoon and she did not answer the phone. He states that he went to her home, the patient was found sitting underneath the wheelchair in the kitchen(the room where the son had left her the previous evening). He states the phone cord was tangled up in the wheels of the wheelchair. Patient has Alzheimer's dementia. The son states the patient is answering questions appropriately and does appear to be somnolent compared to her baseline. MD complaint: fall Onset (ago): unknown (Last seen yesterday at 18:30 hours) Fall from: wheelchair Fall witnessed: no Place fall occurred: home (Kitchen) Related Data Home Medications Medication Instructions Recorded Confirmed calcium carbonate 600 mg calcium 600 mg PO DAILY 08/18/21 08/21/21 (1,500 mg) tablet cholecalciferol (vitamin D3) 50 50 mcg PO DAILY 08/18/21 08/21/21 mcg (2,000 unit) tablet cinacalcet 60 mg tablet 1 tab PO DAILY 08/18/21 08/21/21 clonidine HCl 0.1 mg tablet 0.2 mg PO BID 08/18/21 08/21/21 fenofibrate nanocrystallized 145 1 tab PO DAILY 08/18/21 08/21/21 mg tablet omeprazole 20 mg capsule,delayed 20 mg PO DAILY 08/18/21 08/21/21 release tizanidine 4 mg tablet 4 mg PO Q6H PRN Muscle Spasm 08/18/21 08/21/21 Previous Rx's Medication Instructions Recorded aspirin 81 mg chewable tablet 81 mg PO DAILY #30 tabs 08/20/21 atorvastatin 80 mg tablet 80 mg PO BEDTIME #30 tabs 08/20/21 folic acid 1 mg tablet 1 mg PO DAILY #30 tabs 08/20/21 memantine 5 mg tablet 5 mg PO BID #60 tabs 08/20/21 quetiapine 25 mg tablet (Seroquel) 25 mg PO BEDTIME #30 tabs 08/20/21 sertraline 25 mg tablet (Zoloft) 25 mg PO DAILY #30 tabs 08/20/21 Allergies Allergy/AdvReac Type Severity Reaction Status Date / Time No Known Allergies Allergy Unverified 03/18/20 15:04 [No Known Allergies*] Review of Systems Review of Systems: Yes all other systems are reviewed and are negative [facility] Past Medical History [facility] Narrative: Past medical history: Alzheimer dementia, chronic kidney disease, DVT, fatty liver, hyperlipidemia, hypertension, hyperparathyroidism status post parathyroidectomy, osteopenia, anxiety, anemia . Social history: Patient lives at home alone, her son checks on her daily. The patient does not smoke cigarettes, drink alcohol or use drugs. Medical History CKD (chronic kidney disease), stage II DVT (deep venous thrombosis) Fatty liver HLD (hyperlipidemia) HTN (hypertension) Social History Social History Alcohol intake: never Patient Tobacco Use Status: Never used Tobacco Smoked in Last 30 Days: No Use of substances other than those prescribed or required for medical reasons: No Advance Directives: Yes Advance Directives on File: Yes Advance Directives Date on File: 08/19/21 service: No Current occupational status: retired Physical Exam Vital Signs: Vital Signs: Last Vital Signs Temp 98.2 F 06/20/22 14:06 Pulse 73 06/20/22 15:56 Resp 14 12/20/22 15:56 BP 160/82 H 12/20/22 15:56 Pulse Ox 95 06/20/22 15:56 O2 Del Method 06/20/22 15:56 BMI result Body Mass Index 21.4 Const: Other: Elderly female patient, somnolent, very hard of hearing, does answer questions appropriately, has no complaints, oriented to person only HEENT: Head: Yes normal to inspection, Yes normocephalic and Yes atraumatic Ears: external ears normal General nose exam: Normal external nose present Face and sinus: Yes normal facial exam Mouth: mucous membranes dry (Very dry mucous membrane) Throat: Yes posterior oropharynx normal Eyes: General: appearance normal, both eyes and all related structures Pupils: Equal, round and reactive pupils present Neck: Neck: Yes normal visual inspection, Yes no lymphadenopathy, Yes trachea midline and Yes supple Chest: Chest palpation & inspection: normal inspection of the chest and normal palpation of entire chest wall Resp: Effort & Inspection: normal respiratory effort and able to speak in complete sentences Auscultation: clear to auscultation bilaterally Cardio: Rate: regular rate Rhythm: regular rhythm Heart sounds: S1 normal heart sound present, S2 normal heart sound present and no murmurs GI: Inspection: Yes normal to inspection Palpation (GI): Soft to palpation, nontender and no guarding Auscultation: normal bowel sounds : General: Yes no CVA tenderness Back/Spine/Pelvis: Back: no CVA tenderness Skin: General skin exam: no rashes or lesions noted Neuro: Cranial nerves: Yes CN's II-XII intact bilaterally and Yes Equal, round and reactive pupils present Cognition (Neuro): normal cognition Motor exam (neuro): 5/5 motor strength present throughout Extrem: Other: Patient has trace pitting edema to both lower extremities which is symmetric, she has circumferential erythema bottom 3rd of the calf sparing the ankle and foot, this is not warm to the touch. Patient has no tenderness palpation of her feet, ankles, knees but does have pain with movement of her left hip. Psych: Appearance: grossly normal Speech and movement: Normal speech and movement present Course Course Course Narrative: 81-year-old female was brought to emergency department by EMS for unwitnessed fall at home in her kitchen, last seen by her son at 18:30 hours yesterday when he left her in a wheelchair in the kitchen. I suspect the patient has been lying on the floor in her kitchen for significant period of time. Patient is somnolent and does appear to be dehydrated with very dry mucous membranes. The son reports that the patient is having some weakness with walking over the past 2-3 days. I ordered a CBC, CMP, CPK, lactic acid, PT/INR, PTT, troponin, BNP, urinalysis, COVID-19, influenza and RSV. Urinalysis and EKG were ordered. CT scan of the head and cervical spine, x-ray of the left hip and pelvis and chest x-ray will be obtained. Patient was ordered to get normal saline IV x2 L and Toradol 15 mg IV for her left hip pain. The patient does have a history of hypertension and she was hypertensive in the emergency department with a blood pressure of 202/95 and pulse of 114. She was ordered to get clonidine 0.2 mg orally. 1733: Laboratory evaluation: Anemia with an H&H of 10.9 and 32.6-this is chronic. CK elevated 601. Coags normal. Chloride elevated 109, CO2 low 21, BUN elevated 32-chronic. High sensitivity troponin I elevated 186.1-similar elevation in the past. Urinalysis 2+ blood, trace leukocyte esterase, microscopic 6-10 WBCs,, 3-5 WBCs, no bacteria. COVID-19, influenza RSV negative. Radiology evaluation: Chest x-ray, left hip and pelvis x-rays negative, CT scan of the head and cervical spine no acute disease. I will repeat the patient's troponin at 18:00 hours. The patient is too weak to go home and I suspect that it is secondary to muscle breakdown/rhabdomyolysis from lying on the floor of her kitchen for prolonged period of time. I will discuss admission with the covering hospitalist. 0604: I did discuss the case with the covering hospitalist, Dr. Mendez the patient will be admitted further management. Medications Administered Discontinued Medications Generic Name Dose Route Start Last Admin Trade Name Freq PRN Reason Stop Dose Admin Clonidine HCl 0.2 mg 06/20/22 14:34 06/20/22 14:47 Clonidine Hcl 0.2 Mg Tablet PO 06/20/22 14:35 0.2 mg ONCE ONE Administration Protocol Sodium Chloride 1,000 mls @ 999 mls/hr 06/20/22 14:24 06/20/22 17:32 Ns IV 06/20/22 15:24 Infused .Q1H1M STA Infusion Sodium Chloride 1,000 mls @ 999 mls/hr 06/20/22 15:03 06/20/22 17:03 Ns IV 06/20/22 16:03 999 mls/hr .Q1H1M STA Administration Ketorolac Tromethamine 15 mg 06/20/22 14:24 06/20/22 14:32 Ketorolac Tromethamine 15 Mg/Ml Vial IVPUSH 06/20/22 14:25 15 mg ONCE STA Administration Medical Decision Making Lab Data Result Diagrams: 06/20/22 14:54 06/20/22 14:53 Labs: Lab Results 06/20/22 06/20/22 06/20/22 Range/Units 14:42 14:53 14:53 WBC (4.8-10.8) X10*3/uL RBC (4.20-5.50) X10*6/uL Hgb (12.0-16.0) g/dl Hct (37.0-47.0) % MCV (80.0-98.0) fL MCH (27.0-33.0) pg MCHC (31.0-35.0) g/dl RDW (11.0-16.0) % Plt Count (160-400) X10*3/uL MPV (9.4-12.3) fL Immature Gran % (Auto) (0.0-0.4) % Neut % (Auto) (45-73) % Lymph % (Auto) (20-40) % [place] % (Auto) (2-11) % Eos % (Auto) (0-4) % Baso % (Auto) (0-2) % Lymph # (Auto) (1.2-4.9) X10*3/uL [place] # (Auto) (0.1-1.2) X10*3/uL Eos # (Auto) (0.0-0.4) X10*3/uL Baso # (Auto) (0.0-0.2) X10*3/uL Abs Immat Gran (auto) (0.00-0.03) X10*3/uL Absolute Neuts (auto) (2.0-8.3) x10*3/uL Absolute Nucleated RBC (0.0-0.012) X10*3/uL Nucleated RBC % (auto) (0.0-0.2) /100WBC Smear Tech's Comments PT (10.0-13.1) SEC INR (0.9-1.1) APTT (26.0-36.4) SEC Sodium 140 (135-145) mmol/L Potassium 3.5 (3.3-5.1) mmol/L Chloride 109 H (96-108) mmol/L Carbon Dioxide 21 L (22-29) mmol/L Anion Gap 14 (12-20) BUN 32 H (9-16) mg/dL Creatinine 1.22 (0.5-1.4) mg/dL Estim Creat Clear Calc 31.7 Estimated GFR 42 Random Glucose 93 (60-115) mg/dL Lactic Acid 0.8 (0.5-2.0) mmol/L Calcium 10.6 H D (8.4-10.2) mg/dL Total Bilirubin 0.7 (0.0-1.0) mg/dL AST 56 H (5-31) U/L ALT 30 (0-31) U/L Alkaline Phosphatase 40 (39-117) U/L Total Creatine Kinase 601 H (26-140) U/L Troponin I High Sens (<3.5-17.0) ng/L B-Natriuretic Peptide (<100) pg/mL Total Protein 5.7 L (6.5-8.0) g/dL Albumin 3.4 L (3.5-5.0) g/dL Lipase 15 (8-78) U/L Urine Color Urine Appearance Urine pH (5.0-9.0) Ur Specific [place] (1.005-1.025) Urine Protein (Neg-Trace) mg/dL Urine Glucose (UA) (Negative) mg/dL Urine Ketones (Negative) mg/dL Urine Blood (Negative) Urine Nitrite (Negative) Ur Leukocyte Esterase (Negative) Urine RBC (0-2) /HPF Urine WBC (0-5) /HPF Ur Squamous Epith Cells (0-2) /HPF Urine Bacteria (None Seen) Hyaline Casts (0-2) /LPF Influenza Type A (PCR) NEGATIVE (Negative) Influenza Type B (PCR) NEGATIVE (Negative) RSV RNA Qual (PCR) NEGATIVE (Negative) SARS-CoV-2 RNA (RT-PCR) NEGATIVE (Negative) 06/20/22 06/20/22 06/20/22 Range/Units 14:53 14:53 14:54 WBC 10.0 (4.8-10.8) X10*3/uL RBC 3.67 L (4.20-5.50) X10*6/uL Hgb 10.9 L (12.0-16.0) g/dl Hct 32.6 L (37.0-47.0) % MCV 88.8 (80.0-98.0) fL MCH 29.7 (27.0-33.0) pg MCHC 33.4 (31.0-35.0) g/dl RDW 12.5 (11.0-16.0) % Plt Count 344 (160-400) X10*3/uL MPV 10.0 (9.4-12.3) fL Immature Gran % (Auto) 0.4 (0.0-0.4) % Neut % (Auto) 91.9 H (45-73) % Lymph % (Auto) 3.1 L (20-40) % [place] % (Auto) 4.5 (2-11) % Eos % (Auto) 0.0 (0-4) % Baso % (Auto) 0.1 (0-2) % Lymph # (Auto) 0.3 L (1.2-4.9) X10*3/uL [place] # (Auto) 0.5 (0.1-1.2) X10*3/uL Eos # (Auto) 0.0 (0.0-0.4) X10*3/uL Baso # (Auto) 0.0 (0.0-0.2) X10*3/uL Abs Immat Gran (auto) 0.04 H (0.00-0.03) X10*3/uL Absolute Neuts (auto) 9.2 H (2.0-8.3) x10*3/uL Absolute Nucleated RBC 0.000 (0.0-0.012) X10*3/uL Nucleated RBC % (auto) 0.0 (0.0-0.2) /100WBC Smear Tech's Comments VERIFIED PT (10.0-13.1) SEC INR (0.9-1.1) APTT (26.0-36.4) SEC Sodium (135-145) mmol/L Potassium (3.3-5.1) mmol/L Chloride (96-108) mmol/L Carbon Dioxide (22-29) mmol/L Anion Gap (12-20) BUN (9-16) mg/dL Creatinine (0.5-1.4) mg/dL Estim Creat Clear Calc Estimated GFR Random Glucose (60-115) mg/dL Lactic Acid (0.5-2.0) mmol/L Calcium (8.4-10.2) mg/dL Total Bilirubin (0.0-1.0) mg/dL AST (5-31) U/L ALT (0-31) U/L Alkaline Phosphatase (39-117) U/L Total Creatine Kinase (26-140) U/L Troponin I High Sens 186.1 H* (<3.5-17.0) ng/L B-Natriuretic Peptide 1655 H (<100) pg/mL Total Protein (6.5-8.0) g/dL Albumin (3.5-5.0) g/dL Lipase (8-78) U/L Urine Color Urine Appearance Urine pH (5.0-9.0) Ur Specific [place] (1.005-1.025) Urine Protein (Neg-Trace) mg/dL Urine Glucose (UA) (Negative) mg/dL Urine Ketones (Negative) mg/dL Urine Blood (Negative) Urine Nitrite (Negative) Ur Leukocyte Esterase (Negative) Urine RBC (0-2) /HPF Urine WBC (0-5) /HPF Ur Squamous Epith Cells (0-2) /HPF Urine Bacteria (None Seen) Hyaline Casts (0-2) /LPF Influenza Type A (PCR) (Negative) Influenza Type B (PCR) (Negative) RSV RNA Qual (PCR) (Negative) SARS-CoV-2 RNA (RT-PCR) (Negative) 06/20/22 06/20/22 Range/Units 14:54 16:13 WBC (4.8-10.8) X10*3/uL RBC (4.20-5.50) X10*6/uL Hgb (12.0-16.0) g/dl Hct (37.0-47.0) % MCV (80.0-98.0) fL MCH (27.0-33.0) pg MCHC (31.0-35.0) g/dl RDW (11.0-16.0) % Plt Count (160-400) X10*3/uL MPV (9.4-12.3) fL Immature Gran % (Auto) (0.0-0.4) % Neut % (Auto) (45-73) % Lymph % (Auto) (20-40) % [place] % (Auto) (2-11) % Eos % (Auto) (0-4) % Baso % (Auto) (0-2) % Lymph # (Auto) (1.2-4.9) X10*3/uL [place] # (Auto) (0.1-1.2) X10*3/uL Eos # (Auto) (0.0-0.4) X10*3/uL Baso # (Auto) (0.0-0.2) X10*3/uL Abs Immat Gran (auto) (0.00-0.03) X10*3/uL Absolute Neuts (auto) (2.0-8.3) x10*3/uL Absolute Nucleated RBC (0.0-0.012) X10*3/uL Nucleated RBC % (auto) (0.0-0.2) /100WBC Smear Tech's Comments PT 12.7 (10.0-13.1) SEC INR 1.1 (0.9-1.1) APTT 29.9 (26.0-36.4) SEC Sodium (135-145) mmol/L Potassium (3.3-5.1) mmol/L Chloride (96-108) mmol/L Carbon Dioxide (22-29) mmol/L Anion Gap (12-20) BUN (9-16) mg/dL Creatinine (0.5-1.4) mg/dL Estim Creat Clear Calc Estimated GFR Random Glucose (60-115) mg/dL Lactic Acid (0.5-2.0) mmol/L Calcium (8.4-10.2) mg/dL Total Bilirubin (0.0-1.0) mg/dL AST (5-31) U/L ALT (0-31) U/L Alkaline Phosphatase (39-117) U/L Total Creatine Kinase (26-140) U/L Troponin I High Sens (<3.5-17.0) ng/L B-Natriuretic Peptide (<100) pg/mL Total Protein (6.5-8.0) g/dL Albumin (3.5-5.0) g/dL Lipase (8-78) U/L Urine Color Yellow Urine Appearance Clear Urine pH 5.5 (5.0-9.0) Ur Specific [place] 1.015 (1.005-1.025) Urine Protein 300 (3+) H (Neg-Trace) mg/dL Urine Glucose (UA) Negative (Negative) mg/dL Urine Ketones Negative (Negative) mg/dL Urine Blood Moderate (2+) H (Negative) Urine Nitrite Negative (Negative) Ur Leukocyte Esterase Trace H (Negative) Urine RBC 0-2 (0-2) /HPF Urine WBC 6-10 H (0-5) /HPF Ur Squamous Epith Cells 3-5 (0-2) /HPF Urine Bacteria None Seen (None Seen) Hyaline Casts 3-5 (0-2) /LPF Influenza Type A (PCR) (Negative) Influenza Type B (PCR) (Negative) RSV RNA Qual (PCR) (Negative) SARS-CoV-2 RNA (RT-PCR) (Negative) Discharge Plan Discharge Patient Disposition: Admitted As Inpatient
[2022-06-20] MEDS: Ketorolac Tromethamine 15 MG/ML VIAL IVPUSH (14:32)
[2022-06-20] MEDS: 0.9 % Sodium Chloride 1,000 ML 999 ML IV ×2 (14:33→17:03)
[2022-06-20] MEDS: cloNIDine HCL 0.2 MG TABLET PO ×2 (14:47→20:52)
[2022-06-20 15:10] LABS: Basophils Percent Auto 0.1 % (0-2); Hematocrit 32.6 % (37.0-47.0); Hemoglobin 10.9 g/dl (12.0-16.0); Imm Gran Abs Auto 0.04 X10*3/uL (0.00-0.03); Imm Gran Pct Auto 0.4 % (0.0-0.4); Lymphocytes Absolute Auto 0.3 X10*3/uL (1.2-4.9); Lymphocytes Percent Auto 3.1 % (20-40); MANUAL DIFF FLAG SCAN; Mean Corpuscular HGB Conc 33.4 g/dl (31.0-35.0); Mean Corpuscular Hemoglobin 29.7 pg (27.0-33.0); Mean Corpuscular Volume 88.8 fL (80.0-98.0); Monocytes Absolute Auto 0.5 X10*3/uL (0.1-1.2); Monocytes Percent Auto 4.5 % (2-11); Neutrophils Absolute Auto 9.2 x10*3/uL (2.0-8.3); Neutrophils Percent Auto 91.9 % (45-73); Platelet Count 344 X10*3/uL (160-400); Red Blood Count 3.67 X10*6/uL (4.20-5.50); Red Cell Distribution Width 12.5 % (11.0-16.0); SCAN SMEAR FLAG 1
[2022-06-20 15:16] LABS: INTERNATIONAL NORM RATIO 1.1 (0.9-1.1); Prothrombin Time 12.7 SEC (10.0-13.1)
[2022-06-20 15:18] LABS: Partial Thromboplastin Time 29.9 SEC (26.0-36.4)
[2022-06-20 15:22] LABS: Lactic Acid 0.8 mmol/L (0.5-2.0)
[2022-06-20 15:26] LABS: Alanine Aminotransferase 30 U/L (0-31); Albumin Level 3.4 g/dL (3.5-5.0); Alkaline Phosphatase 40 U/L (39-117); Anion Gap 14 (12-20); Aspartate Amino Transferase 56 U/L (5-31); Bilirubin Total 0.7 mg/dL (0.0-1.0); Blood Urea Nitrogen 32 mg/dL (9-16); Calcium 10.6 mg/dL (8.4-10.2); Carbon Dioxide 21 mmol/L (22-29); Chloride 109 mmol/L (96-108); Creatinine Clr Calc Pharmacy 31.7; Estimated Glomerular Filt Rate 42; Glucose Random 93 mg/dL (60-115); Lipase 15 U/L (8-78); Potassium 3.5 mmol/L (3.3-5.1); Sodium 140 mmol/L (135-145); Total Protein 5.7 g/dL (6.5-8.0)
[2022-06-20 15:29] LABS: SLIDE REVIEW VERIFIED
[2022-06-20 15:29] LABS: Influenza A PCR NEGATIVE (Negative); Influenza B PCR NEGATIVE (Negative); Resp Syncy Virus RNA Qual PCR NEGATIVE (Negative); SARS COV2 PCR INHOUSE NEGATIVE (Negative)
[2022-06-20 15:38] LABS: Troponin-I High Sensitivity 186.1 ng/L (<3.5-17.0)
[2022-06-20 15:47] LABS: B Type Natriuretic Peptide 1655 pg/mL (<100)
[2022-06-20 15:56] VITALS: BP 160/82; PULSE 73; RESP 14; O2SAT 95
[2022-06-20 16:33] LABS: Appearance Urine Clear; Color Urine Yellow; Glucose Urine UA Negative (Negative); Leukocyte Esterase Urine Trace (Negative); Nitrite Urine Negative (Negative); PH 5.5 (5.0-9.0); Specific Gravity - Urine 1.015 (1.005-1.025); UMIC TRIGGER UACC YES; Urine Blood Moderate (2+) (Negative); Urine Ketones Negative (Negative); Urine Protein 300 (3+) mg/dL (Neg-Trace)
[2022-06-20 16:56] LABS: Bacteria Urine None Seen (None Seen); RBC Urine 0-2 /HPF (0-2); UACC Culture Trigger YES
--- NOTE | 2022-06-20 18:15 | P.HPHOSP_ITS ---
History of Present Illness Date of Service: 06/20/22 <AUSTYN Haas - Last Filed: 06/20/22 19:24> Attending physician on admission: Emily Mendez <AUSTYN Haas - Last Filed: 06/20/22 19:24> Chief Complaint: unwitnessed fall, weakness <AUSTYN Haas - Last Filed: 06/20/22 19:24> This is an 81-year-old female with a past medical history noted below presented to emergency department via EMS after her son found her home on the floor underneath her wheelchair in the kitchen. Son apparently reported that she was complaining of left-sided hip pain. Review of chart shows that patient's son visits the patient every day and last saw her around 430 in the evening yesterday when she was in the kitchen sitting in her wheelchair. ED note states that son attempted to call her this afternoon as well this morning however unable to reach her. Patient is a limited historian secondary to Alzheimer dementia however per note son reported that she does appear to be more lethargic than her baseline. X-rays of the chest, left hip and pelvis were performed which did not show any acute findings. CT scan of the brain and cervical spine also negative for acute findings. Initial laboratory results: H&H is 10 0.9/32.6, chloride 109, carbon dioxide 21, BUN/creatinine 32/1.22, Ca 10.6, troponin I high sensitivity 186.1 with repeat of 195.4, BNP 16 55, albumin 3.4. In the emergency department the above was performed. The decision made to admit patient for medical management. <AUSTNY Haas - Last Filed: 06/20/22 19:24> Review of Systems Review of Systems: A complete 12 point review of systems has been performed and is negative if not noted in HPI <AUSTYN Haas - Last Filed: 06/20/22 19:24> [facility] Medical History: Medical History CKD (chronic kidney disease), stage II DVT (deep venous thrombosis) Fatty liver HLD (hyperlipidemia) HTN (hypertension) <AUSTYN Haas - Last Filed: 12/20/22 19:24> Pertinent family history: Unable to obtained due to altered mental status <AUSTYN Haas - Last Filed: 06/20/22 19:24> Social History: Social History Alcohol intake: never Patient Tobacco Use Status: Never used Tobacco Smoked in Last 30 Days: No Use of substances other than those prescribed or required for medical reasons: No Advance Directives: Yes Advance Directives on File: Yes Advance Directives Date on File: 08/19/21 service: No Current occupational status: retired <AUSTYN Haas - Last Filed: 06/20/22 19:24> Meds Allergies/Adverse reactions: Allergies Allergy/AdvReac Type Severity Reaction Status Date / Time No Known Allergies Allergy Unverified 03/18/20 15:04 [No Known Allergies*] <AUSTYN Haas - Last Filed: 06/20/22 19:24> Active Medications: Current Medications Pharmacy Consult (Consult Rx Perform Med Rec) 1 each MISCELLANE ONCE PRN PRN Reason: Consult order <AUSTYN Haas - Last Filed: 06/20/22 19:24> Home medications: Home Medications Medication Instructions Recorded Confirmed Last Taken Type cinacalcet 60 mg tablet 1 tab PO DAILY 08/18/21 06/20/22 Unknown History clonidine HCl 0.1 mg tablet 0.2 mg PO BID 08/18/21 06/20/22 Unknown History fenofibrate nanocrystallized 145 1 tab PO DAILY 08/18/21 06/20/22 Unknown History mg tablet tizanidine 4 mg tablet 4 mg PO Q6H PRN Muscle Spasm 08/18/21 06/20/22 Unknown History amlodipine 5 mg tablet 1 tab PO BID 06/20/22 06/20/22 Unknown History irbesartan 300 mg tablet 1 tab PO DAILY 06/20/22 06/20/22 Unknown History <AUSTYN Haas - Last Filed: 06/20/22 19:24> Physical Exam Vital Signs and Narrative: Vital Signs: Last Vital Signs Temp 98.2 F 06/20/22 14:06 Pulse 73 06/20/22 15:56 Resp 14 12/20/22 15:56 BP 160/82 H 06/20/22 15:56 Pulse Ox 95 06/20/22 15:56 O2 Del Method 06/20/22 15:56 BMI result Body Mass Index 21.4 <Katie Stauffer [employer] - Last Filed: 06/20/22 19:24> Const: Other: General: Appears stated age, in no acute distress, Sleepy however once she wakens she is alert, does not answer questions accurately or appropriately. Exam is difficult due to poor participation. Skin: Warm and well perfused, tenting noted to upper extremities, no obvious bruises or open wounds noted, skin redness noted to bilateral lower extremities. Respiratory: Lungs CTAB, no rales/rhonchi, no expiratory/inspiratorywheezing, Cardiac: Regular rhythm, no rubs, gallops, murmurs or clicks. No JVD/carotid bruits. Abdomen: Soft, non-distended, bowel sounds noted throughout Extremities: 1+ pitting edema noted to bilateral lower extremities, no erythema tenderness with palpation. Neuro: Sleepy however arousable, not alert or oriented x3 Psych: Unable to assess <Katie StaufferAUSTYN - Last Filed: 06/20/22 19:24> Results Labs CBC and Chem 7: : 06/20/22 14:54 06/20/22 14:53 <Katie StaufferAUSTYN - Last Filed: 06/20/22 19:24> Labs: Laboratory Results - last 24 hr 06/20/22 06/20/22 06/20/22 14:42 14:53 14:53 MCV MCH MCHC RDW Plt Count MPV Immature Gran % (Auto) Neut % (Auto) Lymph % (Auto) Banks % (Auto) Eos % (Auto) Baso % (Auto) Lymph # (Auto) Banks # (Auto) Eos # (Auto) Baso # (Auto) Abs Immat Gran (auto) Absolute Neuts (auto) Absolute Nucleated RBC Nucleated RBC % (auto) Smear Tech's Comments PT INR APTT Anion Gap 14 Estim Creat Clear Calc 31.7 Estimated GFR 42 Random Glucose 93 Lactic Acid 0.8 Calcium 10.6 H D Total Bilirubin 0.7 AST 56 H ALT 30 Alkaline Phosphatase 40 Total Creatine Kinase 601 H Troponin I High Sens B-Natriuretic Peptide Total Protein 5.7 L Albumin 3.4 L Lipase 15 Urine Color Urine Appearance Urine pH Ur Specific Wesley Urine Protein Urine Glucose (UA) Urine Ketones Urine Blood Urine Nitrite Ur Leukocyte Esterase Urine RBC Urine WBC Ur Squamous Epith Cells Urine Bacteria Hyaline Casts Influenza Type A (PCR) NEGATIVE Influenza Type B (PCR) NEGATIVE RSV RNA Qual (PCR) NEGATIVE SARS-CoV-2 RNA (RT-PCR) NEGATIVE 06/20/22 06/20/22 06/20/22 14:53 14:53 14:54 MCV 88.8 MCH 29.7 MCHC 33.4 RDW 12.5 Plt Count 344 MPV 10.0 Immature Gran % (Auto) 0.4 Neut % (Auto) 91.9 H Lymph % (Auto) 3.1 L Banks % (Auto) 4.5 Eos % (Auto) 0.0 Baso % (Auto) 0.1 Lymph # (Auto) 0.3 L Banks # (Auto) 0.5 Eos # (Auto) 0.0 Baso # (Auto) 0.0 Abs Immat Gran (auto) 0.04 H Absolute Neuts (auto) 9.2 H Absolute Nucleated RBC 0.000 Nucleated RBC % (auto) 0.0 Smear Tech's Comments VERIFIED PT INR APTT Anion Gap Estim Creat Clear Calc Estimated GFR Random Glucose Lactic Acid Calcium Total Bilirubin AST ALT Alkaline Phosphatase Total Creatine Kinase Troponin I High Sens 186.1 H* B-Natriuretic Peptide 1655 H Total Protein Albumin Lipase Urine Color Urine Appearance Urine pH Ur Specific Wesley Urine Protein Urine Glucose (UA) Urine Ketones Urine Blood Urine Nitrite Ur Leukocyte Esterase Urine RBC Urine WBC Ur Squamous Epith Cells Urine Bacteria Hyaline Casts Influenza Type A (PCR) Influenza Type B (PCR) RSV RNA Qual (PCR) SARS-CoV-2 RNA (RT-PCR) 06/20/22 06/20/22 14:54 16:13 MCV MCH MCHC RDW Plt Count MPV Immature Gran % (Auto) Neut % (Auto) Lymph % (Auto) Banks % (Auto) Eos % (Auto) Baso % (Auto) Lymph # (Auto) Banks # (Auto) Eos # (Auto) Baso # (Auto) Abs Immat Gran (auto) Absolute Neuts (auto) Absolute Nucleated RBC Nucleated RBC % (auto) Smear Tech's Comments PT 12.7 INR 1.1 APTT 29.9 Anion Gap Estim Creat Clear Calc Estimated GFR Random Glucose Lactic Acid Calcium Total Bilirubin AST ALT Alkaline Phosphatase Total Creatine Kinase Troponin I High Sens B-Natriuretic Peptide Total Protein Albumin Lipase Urine Color Yellow Urine Appearance Clear Urine pH 5.5 Ur Specific Wesley 1.015 Urine Protein 300 (3+) H Urine Glucose (UA) Negative Urine Ketones Negative Urine Blood Moderate (2+) H Urine Nitrite Negative Ur Leukocyte Esterase Trace H Urine RBC 0-2 Urine WBC 6-10 H Ur Squamous Epith Cells 3-5 Urine Bacteria None Seen Hyaline Casts 3-5 Influenza Type A (PCR) Influenza Type B (PCR) RSV RNA Qual (PCR) SARS-CoV-2 RNA (RT-PCR) <AUSTYN Haas - Last Filed: 06/20/22 19:24> Imaging Radiologist's Impressions: Impressions Cervical Spine CT 06/20/22 15:42 IMPRESSION: 1. No acute intracranial process seen. 2. Mild straightening of cervical lordosis with grade 1 anterolisthesis C3 over C4 and C4 over C5. There are degenerative disc changes C5-C6 and C6-C7 disc levels. No visible acute fracture or dislocation seen. Head CT 06/20/22 15:42 IMPRESSION: 1. No acute intracranial process seen. 2. Mild straightening of cervical lordosis with grade 1 anterolisthesis C3 over C4 and C4 over C5. There are degenerative disc changes C5-C6 and C6-C7 disc levels. No visible acute fracture or dislocation seen. Chest X-Ray 06/20/22 15:50 IMPRESSION: Unremarkable chest exam. Unremarkable left hip exam. Hip/Pelvis X-Ray 06/20/22 15:50 IMPRESSION: Unremarkable chest exam. Unremarkable left hip exam. <AUSTYN Haas - Last Filed: 06/20/22 19:24> Assessment and Plan (1) Unwitnessed fall: Status: Acute <AUSTYN Haas - Last Filed: 06/20/22 19:24> (2) Rhabdomyolysis: Status: Acute <AUSTYN Haas - Last Filed: 06/20/22 19:24> (3) Acute dehydration: Status: Acute <AUSTYN Haas - Last Filed: 06/20/22 19:24> 81-year-old female with history of Alzheimer's dementia, CKD, DVT, hypertension, hyperlipidemia amongst others admitted with fall /rhabdomyolysis, generalized weakness Acute encephalopathy Fall, unwitnessed Generalized weakness Rhabdomyolysis Troponin I high sensitivity elevation, chronic - Patient was found by her son this afternoon on the floor beneath her wheelchair, last known well at 4:30 yesterday afternoon. - Review of note shows that patient reports she is more altered than baseline - chest, left hip and pelvis x-rays performed which were negative for acute findings. - CT brain and cervical spine also negative for acute findings. - troponin I high sensitivity noted to be 186.1, repeat 195. Likely secondary to rhabdo however patient does carry a history of chronic troponin elevations and these are lower than previous results - PT eval. Patient is mainly wheelchair bound. May need SNF at discharge - Fall precautions in place. Received IV fluids. Dehydration CKD - Patient does carry a history of CKD however not currently in [place]- she does appear clinically dry. - Gentle IV fluids to be given. BNP noted to be eleavted at , last echo 08/2021 showed an EF of 45-50%. - Monitor for signs of overload- repeat BNP in a.m. - Likely contributing to above. / Hypertension - continue antihypertensives with holding parameters. Monitor blood pressures. Hyperlipidemia - Hold Statin due to rhabdo. Continue when appropriate. Alzheimer's dementia - patient is normally maintained on sertraline, Seroquel, memantine. - Patient also takes tizanidine p.r.n., concern for polypharmacy contributing to weakness/fall. History of fatty liver -known, AST/ ALT at baseline. Gastroesophageal reflux disease -continue oral PPI. OTHER: DVT prophylaxis -heparin subQ b.i.d. Patient is a presumed a FULL CODE at this time as I was unable to clarify with patients son (no answer when called) HCP/person to contact is patients son Jerald Joseph, <AUSTYN Haas - Last Filed: 06/20/22 19:24> 81-year-old female with history of Alzheimer's dementia, CKD, DVT, hypertension, hyperlipidemia amongst others admitted with fall /rhabdomyolysis, generalized weakness Acute encephalopathy Fall, unwitnessed Generalized weakness Rhabdomyolysis Troponin I high sensitivity elevation, chronic - Patient was found by her son this afternoon on the floor beneath her wheel chair, last known well at 4:30 yesterday afternoon. - Review of note shows that patient reports she is more altered than baseline - chest, left hip and pelvis x-rays performed which were negative for acute findings. - CT brain and cervical spine also negative for acute findings. - troponin I high sensitivity noted to be 186.1, repeat 195. Likely secondary to rhabdo however patient does carry a history of chronic troponin elevations and these are lower than previous results - PT eval. Patient is mainly wheelchair bound. May need SNF at discharge - Fall precautions in place. Received IV fluids. Dehydration CKD - Patient does carry a history of CKD however not currently in [place]- she does appear clinically dry. - Gentle IV fluids to be given. BNP noted to be eleavted at , last echo 08/2021 showed an EF of 45-50%. - Monitor for signs of overload- repeat BNP in a.m. - Likely contributing to above. / Hypertension - continue antihypertensives with holding parameters. Monitor blood pressures. Hyperlipidemia - Hold Statin due to rhabdo. Continue when appropriate. Alzheimer's dementia - patient is normally maintained on sertraline, Seroquel, memantine. - Patient also takes tizanidine p.r.n., concern for polypharmacy contributing to weakness/fall. History of fatty liver -known, AST/ ALT at baseline. Gastroesophageal reflux disease -continue oral PPI. OTHER: DVT prophylaxis -heparin subQ b.i.d. Patient is a presumed a FULL CODE at this time as I was unable to clarify with patients son (no answer when called) HCP/person to contact is patients son Jerald Joseph, Addendum to history and physical by mid-level provider, KENDAL Stauffer I interviewed and examined the patient. I discussed their presentation and management with the mid-level provider. I reviewed the history and physical and agree with the documentation, with the following additions and corrections: 81yo F with HTN + dementia who lives alone but whose son checks on her daily was found down on the ground by her son this AM, having presumably fallen from her wheelcharir. Possibly down as long as 16 hr or less. Found to have mild rhabdomyolysis with CPK 600+. Increased confusion/lethargy from baseline. Plan admit to hospital, gentle hydration with CHF precautions, recheck CPK in AM, and PT evaluation. <Emily Mendez MD - Last Filed: 06/20/22 19:45> Time Spent With Patient Time: Total time managing care of this patient today ____ minutes. <AUSTYN Haas - Last Filed: 06/20/22 19:24> Quality Stroke Does the patient have a stroke diagnosis?: No <AUSTYN Haas - Last Filed: 06/20/22 19:24> VTE Prior VTE?: No <AUSTYN Haas - Last Filed: 06/20/22 19:24> VTE Risk Level:: Medical - moderate - high <AUSTYN Haas - Last Filed: 06/20/22 19:24> VTE Device Contraindication: N/A - Device Ordered <AUSTYN Haas - Last Filed: 06/20/22 19:24> VTE Drug Contraindication: N/A - Med Ordered <AUSTYN Haas - Last Filed: 06/20/22 19:24>
[2022-06-20 18:28] VITALS: BP 163/76; PULSE 64; RESP 14; TEMP 36.5; O2SAT 97
[2022-06-20 18:35] LABS: Troponin-I High Sensitivity 195.4 ng/L (<3.5-17.0)
--- NOTE | 2022-06-20 19:27 | PHA.MEDREC ---
Pharmacy Consult ? Medication Reconciliation Pharmacy has completed the medication reconciliation. patient poor historian of medications. Called patient's son Jerald who doesn't know any of their medications either. Called the pharmacy to confirm meds and cross-referenced with patients claim history.
[2022-06-20] MEDS: 0.9 % Sodium Chloride 1,000 ML 75 ML IVCONT (20:12)
[2022-06-20] MEDS: Docusate Sodium 100 MG CAPSULE PO (20:52)
[2022-06-20] MEDS: amLODIPine Besylate 5 MG TABLET PO (20:52)
[2022-06-20] MEDS: Heparin Sodium,Porcine 5,000 UNIT/ML VIAL 5000 UNIT SUBCUT (20:52)
--- NOTE | 2022-06-20 20:59 | PC.NURSE ---
Established care of pt. at 1900. Pt. sleeping at that time. Respirations even and unlabored. Medicated pt. per AUG, IVF running at 75mL/hour. Pt. c/o being cold...provided with warm blanket. Pt. being sent up to room 352. Called to give report. Floor RNTanisha will return my call.
[2022-06-21] VITALS: BP 160/79; PULSE 79; RESP 16; TEMP 36.2; O2SAT 99
[2022-06-21] MEDS: 0.9 % Sodium Chloride Flush 3 ML SYRINGE IVFLUSH ×2 (01:40→07:29)
[2022-06-21 03:31] VITALS: BP 176/62; PULSE 84; RESP 16; TEMP 36.3; O2SAT 98
[2022-06-21 06:22] LABS: Hematocrit 30.5 % (37.0-47.0); Hemoglobin 9.8 g/dl (12.0-16.0); Mean Corpuscular HGB Conc 32.1 g/dl (31.0-35.0); Mean Corpuscular Hemoglobin 29.2 pg (27.0-33.0); Mean Corpuscular Volume 90.8 fL (80.0-98.0); Mean Platelet Volume 10.6 fL (9.4-12.3); Platelet Count 326 X10*3/uL (160-400); Red Blood Count 3.36 X10*6/uL (4.20-5.50); Red Cell Distribution Width 12.5 % (11.0-16.0); White Blood Count 7.3 X10*3/uL (4.8-10.8)
[2022-06-21 06:45] LABS: Anion Gap 13 (12-20); B Type Natriuretic Peptide 1037 pg/mL (<100); Blood Urea Nitrogen 33 mg/dL (9-16); Calcium 10.1 mg/dL (8.4-10.2); Carbon Dioxide 20 mmol/L (22-29); Chloride 112 mmol/L (96-108); Creatinine Clr Calc Pharmacy 33.7; Estimated Glomerular Filt Rate 45; Glucose Random 64 mg/dL (60-115); Potassium 3.5 mmol/L (3.3-5.1); Sodium 141 mmol/L (135-145)
[2022-06-21] MEDS: cloNIDine HCL 0.2 MG TABLET PO (07:28)
[2022-06-21] MEDS: Cinacalcet HCl 30 MG TABLET 60 MG PO (07:28)
[2022-06-21] MEDS: Fenofibrate 160 MG TABLET PO (07:28)
[2022-06-21] MEDS: Heparin Sodium,Porcine 5,000 UNIT/ML VIAL 5000 UNIT SUBCUT (07:29)
[2022-06-21] MEDS: amLODIPine Besylate 5 MG TABLET PO (07:29)
[2022-06-21] MEDS: Valsartan 160 MG TABLET PO (07:29)
[2022-06-21] MEDS: Docusate Sodium 100 MG CAPSULE PO (07:29)
[2022-06-21 07:43] VITALS: BP 183/82; PULSE 73; RESP 16; TEMP 37.5; O2SAT 97
[2022-06-21 07:49] VITALS: BP 183/82; PULSE 73; O2SAT 97
--- NOTE | 2022-06-21 09:54 | MHC.CM.PN ---
BARBARA EXPLAINED TO SON /HCP PETER VIA TELEPHONE, YELLOW COPY AT BEDSIDE PER REQUEST, WHITE COPY TO CHART. PT LIVES ALONE IN A SINGLE FAMILY HOME, USES W/C FOR MOST MOBILITY. SON CHECKS ON HER DAILY. +COVID VAX X 3 +HCP ON FILE. PCP DR. HUMMEL IN [place]. DP: TO BE DETERMINED. EARLY REFERRALS SENT TO SNF[facility]S [facility] PER SON'S REQUEST. CM WILL CONTINUE TO FOLLOW.
--- NOTE | 2022-06-21 12:28 | P.DS_ITS ---
DS: Providers Provider Date of Service: 06/21/22 Date of admission: 06/20/22 18:26 Date of discharge: 06/21/22 Primary care physician: Erica Yancey MD DS: Diagnosis Discharge Diagnosis (1) Unwitnessed fall: Status: Acute (2) Rhabdomyolysis: Status: Acute (3) Acute dehydration: Status: Acute DS: Summary Hospital Course Hospital Course: from admission history and physical by hospitalist SUPERVISOR WINTER Katie Stauffer, 06/20/22: This is an 81-year-old female with a past medical history noted below presented to emergency department via EMS after her son found her home on the floor underneath her wheelchair in the kitchen. ? Son apparently reported that she was complaining of left-sided hip pain. Review of chart shows that patient's son visits the patient every day and last saw her around 430 in the evening yesterday when she was in the kitchen sitting in her wheelchair.? ED note states that son attempted to call her this afternoon as well this morning however unable to reach her.? Patient is a limited historian secondary to Alzheimer dementia however per note son reported that she does appear to be more? lethargic than her baseline. X-rays of the chest, left hip and pelvis were performed which did not show any acute findings.? CT scan of the brain and cervical spine also negative for acute findings.? Initial laboratory results:? H&H is 10 0.9/32.6, chloride 109, carbon dioxide 21, BUN/creatinine 32/1.22, Ca 10.6, troponin I high sensitivity 186.1 with repeat of 195.4, BNP 16 55, albumin 3.4. In the emergency department the above was performed.? The decision made to admit patient for medical management. This 81 year-old woman with history of Alzheimer's dementia, CKD3, prior DVT, hypertension, and hyperlipidemia was admitted after sustaining an unwitnessed fall, down for an unknown amount of time, and found to have mild rhabdomyolysis and dehydration. She was admitted under observation, and rhabdomyolysis and dehydration improved with IV fluid hydration. She was discharged to a care home facility for short-term rehabilitation under the Medicare 3-day waiver. Time Spent with Patient Time attestation: Total time managing care of this patient today _25___ minutes. Discharge coordination time: Less than 30 minutes Quality: Safe Use of Opioids Does Pt have an Active Cancer Diagnosis on the Problem List?: No Quality: Stroke Does the patient have a stroke diagnosis?: No Physical Exam Vital Signs: Vital Signs: Last Vital Signs Temp 99.5 F 06/21/22 07:43 Pulse 73 06/21/22 07:49 Resp 16 06/21/22 07:43 BP 183/82 H 06/21/22 07:49 Pulse Ox 97 06/21/22 07:49 O2 Del Method 06/21/22 07:43 BMI result Body Mass Index 21.4 Gen: in no acute distress HEENT: sclera anicteric, moist mucus membranes Neck: supple, no JVD Lungs: clear to auscultation bilaterally Heart: regular rate and rhythm, no murmurs Abd: soft, non-tender, non-distended Ext: 1+ bilateral leg edema Skin: warm/well-perfused Neuro: alert, disoriented, no focal motor findings Psych: impaired insight DS: Data Data Completed and Pending Completed studies during hospitalization [Text1]: Laboratory Results WBC 7.3 X10*3/uL (4.8-10.8) 06/21/22 05:30 RBC 3.36 X10*6/uL (4.20-5.50) L 06/21/22 05:30 Hgb 9.8 g/dl (12.0-16.0) L 06/21/22 05:30 Hct 30.5 % (37.0-47.0) L 06/21/22 05:30 MCV 90.8 fL (80.0-98.0) 06/21/22 05:30 MCH 29.2 pg (27.0-33.0) 06/21/22 05:30 MCHC 32.1 g/dl (31.0-35.0) 06/21/22 05:30 RDW 12.5 % (11.0-16.0) 06/21/22 05:30 Plt Count 326 X10*3/uL (160-400) 06/21/22 05:30 MPV 10.6 fL (9.4-12.3) 06/21/22 05:30 Immature Gran % (Auto) 0.4 % (0.0-0.4) 06/20/22 14:54 Neut % (Auto) 91.9 % (45-73) H 06/20/22 14:54 Lymph % (Auto) 3.1 % (20-40) L 06/20/22 14:54 Iron % (Auto) 4.5 % (2-11) 06/20/22 14:54 Eos % (Auto) 0.0 % (0-4) 06/20/22 14:54 Baso % (Auto) 0.1 % (0-2) 06/20/22 14:54 Lymph # (Auto) 0.3 X10*3/uL (1.2-4.9) L 06/20/22 14:54 Iron # (Auto) 0.5 X10*3/uL (0.1-1.2) 06/20/22 14:54 Eos # (Auto) 0.0 X10*3/uL (0.0-0.4) 06/20/22 14:54 Baso # (Auto) 0.0 X10*3/uL (0.0-0.2) 06/20/22 14:54 Abs Immat Gran (auto) 0.04 X10*3/uL (0.00-0.03) H 06/20/22 14:54 Absolute Neuts (auto) 9.2 x10*3/uL (2.0-8.3) H 06/20/22 14:54 Absolute Nucleated RBC 0.000 X10*3/uL (0.0-0.012) 06/21/22 05:30 Nucleated RBC % (auto) 0.0 /100WBC (0.0-0.2) 06/21/22 05:30 Smear Tech's Comments VERIFIED 06/20/22 14:54 PT 12.7 SEC (10.0-13.1) 06/20/22 14:54 INR 1.1 (0.9-1.1) 06/20/22 14:54 APTT 29.9 SEC (26.0-36.4) 06/20/22 14:54 Sodium 141 mmol/L (135-145) 06/21/22 05:30 Potassium 3.5 mmol/L (3.3-5.1) 06/21/22 05:30 Chloride 112 mmol/L (96-108) H 06/21/22 05:30 Carbon Dioxide 20 mmol/L (22-29) L 06/21/22 05:30 Anion Gap 13 (12-20) 06/21/22 05:30 BUN 33 mg/dL (9-16) H 06/21/22 05:30 Creatinine 1.15 mg/dL (0.5-1.4) 06/21/22 05:30 Estim Creat Clear Calc 33.7 06/21/22 05:30 Estimated GFR 45 06/21/22 05:30 Random Glucose 64 mg/dL (60-115) 06/21/22 05:30 Lactic Acid 0.8 mmol/L (0.5-2.0) 06/20/22 14:53 Calcium 10.1 mg/dL (8.4-10.2) 06/21/22 05:30 Total Bilirubin 0.7 mg/dL (0.0-1.0) 06/20/22 14:53 AST 56 U/L (5-31) H 06/20/22 14:53 ALT 30 U/L (0-31) 06/20/22 14:53 Alkaline Phosphatase 40 U/L (39-117) 06/20/22 14:53 Total Creatine Kinase 354 U/L (26-140) H 06/21/22 05:30 Troponin I High Sens 195.4 ng/L (<3.5-17.0) H* 06/20/22 17:53 B-Natriuretic Peptide 1037 pg/mL (<100) H 06/21/22 05:30 Total Protein 5.7 g/dL (6.5-8.0) L 06/20/22 14:53 Albumin 3.4 g/dL (3.5-5.0) L 06/20/22 14:53 Lipase 15 U/L (8-78) 06/20/22 14:53 Urine Color Yellow 06/20/22 16:13 Urine Appearance Clear 06/20/22 16:13 Urine pH 5.5 (5.0-9.0) 06/20/22 16:13 Ur Specific [place] 1.015 (1.005-1.025) 06/20/22 16:13 Urine Protein 300 (3+) mg/dL (Neg-Trace) H 06/20/22 16:13 Urine Glucose (UA) Negative mg/dL (Negative) 06/20/22 16:13 Urine Ketones Negative mg/dL (Negative) 06/20/22 16:13 Urine Blood Moderate (2+) (Negative) H 06/20/22 16:13 Urine Nitrite Negative (Negative) 06/20/22 16:13 Ur Leukocyte Esterase Trace (Negative) H 06/20/22 16:13 Urine RBC 0-2 /HPF (0-2) 06/20/22 16:13 Urine WBC 6-10 /HPF (0-5) H 06/20/22 16:13 Ur Squamous Epith Cells 3-5 /HPF (0-2) 06/20/22 16:13 Urine Bacteria None Seen (None Seen) 06/20/22 16:13 Hyaline Casts 3-5 /LPF (0-2) 06/20/22 16:13 Influenza Type A (PCR) NEGATIVE (Negative) 06/20/22 14:42 Influenza Type B (PCR) NEGATIVE (Negative) 06/20/22 14:42 RSV RNA Qual (PCR) NEGATIVE (Negative) 06/20/22 14:42 SARS-CoV-2 RNA (RT-PCR) NEGATIVE (Negative) 06/20/22 14:[address] 06/20/22 15:42 IMPRESSION: 1. No acute intracranial process seen. 2. Mild straightening of cervical lordosis with grade 1 anterolisthesis C3 over C4 and C4 over C5. There are degenerative disc changes C5-C6 and C6-C7 disc levels. No visible acute fracture or dislocation seen. Head CT 06/20/22 15:42 IMPRESSION: 1. No acute intracranial process seen. 2. Mild straightening of cervical lordosis with grade 1 anterolisthesis C3 over C4 and C4 over C5. There are degenerative disc changes C5-C6 and C6-C7 disc levels. No visible acute fracture or dislocation seen. Chest X-Ray 06/20/22 15:50 IMPRESSION: Unremarkable chest exam. Unremarkable left hip exam. Hip/Pelvis X-Ray 06/20/22 15:50 IMPRESSION: Unremarkable chest exam. Unremarkable left hip exam. Discharge Plan Discharge Anticipated Discharge Date/Time: 06/21/22 14:00 Patient Disposition: [facility] Discharge Diagnosis: fall, mild rhabdomyolysis Referrals: Erica Yancey MD [Primary Care Provider] - 1 Week Discharge Medications: Continued clonidine HCl 0.1 mg tablet 0.2 mg PO BID cinacalcet 60 mg tablet 1 tab PO DAILY fenofibrate nanocrystallized 145 mg tablet 1 tab PO DAILY amlodipine 5 mg tablet 1 tab PO BID irbesartan 300 mg tablet 1 tab PO DAILY Discontinued tizanidine 4 mg tablet 4 mg PO Q6H PRN (Reason: Muscle Spasm) Discharge Orders: Discharge Order (Routine); Ordered 06/21/22 Ordered By: Emily Mendez Diet: Advance to usual diet Activity on Discharge: As tolerated Stand Alone Forms: Patient Portal Discharge page Care Plan Goals: fall prevention Health Concerns: fall, mild rhabdomyolysis Plan of Treatment: short-term rehabilitation facility for PT Assessment: See Discharge Summary.
--- NOTE | 2022-06-21 12:49 | MHC.CM.PN ---
DP: PT MEDICALLY CLEARED FOR DISCHARGE TO [facility]. RN AWARE. IMELDA JEONG AWARE. TRANSPORTATION BOOKED FOR 2 PM VIA [facility].
[2022-06-21 14:17] VITALS: BP 172/72
== END 2022-06-21 14:52 | disposition skilled nursing facility (03) ==
LOC: HO.ED 17:45 → HO.EDOVER 19:08 → HO.S3 19:31
PROVIDERS: Admitting Provider Registered Nurse; Emergency Provider Emergency Medicine Emergency Medical Services; PCP Internal Medicine; Visit Provider Family Medicine
DX: M62.82 Rhabdomyolysis (principal); E86.0 Dehydration; R26.2 Difficulty in walking, not elsewhere classified; R51.9 Headache, unspecified; R07.89 Other chest pain; M54.2 Cervicalgia; M25.552 Pain in left hip; R06.02 Shortness of breath; Z20.822 Contact with and (suspected) exposure to COVID-19; Z79.899 Other long term (current) drug therapy
CPT/HCPCS: 0241U; 36415; 51702; 70450; 71045; 72125; 73502; 80048; 80053; 81001; 82550; 83605; 83690; 83880; 84484; 85025; 85027; 85610; 85730; 87040; 87086; 87088; 87186; 93005; 96361; 96366; 96374; 97162; 99218; 99285; J1885